=== PATIENT | female | born 1960 | race Caucasian/White ===

== ENCOUNTER 2022-10-26 09:07 | Outpatient (OUT) | payer OTHER, SELFPAY ==
[2022-10-26 09:46] LABS: Basophils Percent Auto 0.6 % (0.2-2.0); Eosinophils Absolute Auto 0.1 10^3/uL (0.0-0.7); Eosinophils Percent Auto 3.4 % (0.9-7.0); Hematocrit 40.3 % (36.0-48.0); Hemoglobin 13.6 g/dL (12.0-16.0); Immature Granulocytes Abs Auto 0.01 10^3/uL (0.00-0.03); Immature Granulocytes Pct Auto 0.3 % (0.0-0.5); Lymphocytes Absolute Auto 0.9 10^3/uL (1.2-3.8); Lymphocytes Percent Auto 26.4 % (20.5-60.0); Mean Corpuscular HGB Conc 33.7 g/dL (29.9-35.2); Mean Corpuscular Hemoglobin 28.7 pg (26.7-34.0); Mean Platelet Volume 9.8 fL (9.5-13.5); Monocytes Absolute Auto 0.4 10^3/uL (0.3-0.8); Monocytes Percent Auto 12.1 % (1.7-12.0); Neutrophils Percent Auto 57.2 % (43.0-75.0); Platelet Count 183 10^3/uL (150-450); Red Blood Count 4.74 10^6/uL (4.20-5.40); Red Cell Distribution Width 12.2 % (11.0-15.0); White Blood Count 3.5 10^3/uL (4.0-11.0)
[2022-10-26 10:43] LABS: Alanine Aminotransferase 30 U/L (14-59); Albumin Globulin Ratio 1.3; Albumin Level 4.1 g/dL (3.4-5.0); Alkaline Phosphatase 81 U/L (46-116); Anion Gap 13.1; Aspartate Amino Transferase 18 U/L (15-37); BUN Creatinine Ratio 22.8; Bilirubin Total 0.7 mg/dL (0.2-1.0); Carbon Dioxide 26.9 mmol/L (21.0-32.0); Chloride 106 mmol/L (98-107); Chol HDL Ratio 2.4; Cholesterol 163 mg/dL (<=200); Estimated GFR (African America >60 (>=60); Estimated GFR (Non-African Ame >60 (>=60); Globulin 3.1 g/dL; Glucose 134 mg/dL (74-106); HDL Cholesterol 69 mg/dL (40-60); Sodium 142 mmol/L (136-145); Total Protein 7.2 g/dL (6.4-8.2); Triglycerides 84 mg/dL (<=150); VLDL CHOLESTEROL 16.8 mg/dL
== END 2022-10-26 09:08 | disposition home or self-care (01) ==
PROVIDERS: PCP Internal Medicine; Visit Provider Internal Medicine
DX: Z00.00 Encounter for general adult medical examination without abnormal findings (principal)
CPT/HCPCS: 36415; 80053; 80061; 85025

== ENCOUNTER 2023-11-09 09:26 | Outpatient (OUT) | payer OTHER, SELFPAY ==
[2023-11-09 09:39] LABS: Basophils Percent Auto 0.6 % (0.2-2.0); Eosinophils Absolute Auto 0.1 10^3/uL (0.0-0.7); Eosinophils Percent Auto 3.4 % (0.9-7.0); Hematocrit 39.9 % (36.0-48.0); Hemoglobin 13.6 g/dL (12.0-16.0); Immature Granulocytes Abs Auto 0.01 10^3/uL (0.00-0.03); Immature Granulocytes Pct Auto 0.3 % (0.0-0.5); Lymphocytes Percent Auto 27.4 % (20.5-60.0); Mean Corpuscular HGB Conc 34.1 g/dL (29.9-35.2); Mean Corpuscular Hemoglobin 29.1 pg (26.7-34.0); Mean Corpuscular Volume 85.3 fL (81.0-99.0); Mean Platelet Volume 9.8 fL (9.5-13.5); Monocytes Absolute Auto 0.4 10^3/uL (0.3-0.8); Monocytes Percent Auto 11.2 % (1.7-12.0); Neutrophils Absolute Auto 2.1 10^3/uL (1.4-6.5); Neutrophils Percent Auto 57.1 % (43.0-75.0); Platelet Count 171 10^3/uL (150-450); Red Blood Count 4.68 10^6/uL (4.20-5.40); Red Cell Distribution Width 11.9 % (11.0-15.0); White Blood Count 3.6 10^3/uL (4.0-11.0)
[2023-11-09 09:56] LABS: Estimated Average Glucose 120 mg/dL; Glycohemoglobin A1C 5.8 % (4.5-6.2)
[2023-11-09 10:04] LABS: Alanine Aminotransferase 29 U/L (14-59); Albumin Globulin Ratio 1.3; Albumin Level 4.1 g/dL (3.4-5.0); Alkaline Phosphatase 98 U/L (46-116); Anion Gap 12.7; Aspartate Amino Transferase 24 U/L (15-37); BUN Creatinine Ratio 19.3; Bilirubin Total 0.7 mg/dL (0.2-1.0); Calcium 8.9 mg/dL (8.5-10.1); Chloride 105 mmol/L (98-107); Chol HDL Ratio 2.5; Cholesterol 160 mg/dL (<=200); Estimated GFR (African America >60 (>=60); Estimated GFR (Non-African Ame >60 (>=60); Globulin 3.1 g/dL; Glucose 124 mg/dL (74-106); HDL Cholesterol 65 mg/dL (40-60); Potassium 3.7 mmol/L (3.5-5.1); Sodium 142 mmol/L (136-145); Total Protein 7.2 g/dL (6.4-8.2); Triglycerides 50 mg/dL (<=150)
== END 2023-11-09 09:27 | disposition home or self-care (01) ==
LOC: LAB 09:26
PROVIDERS: PCP Internal Medicine; Visit Provider Internal Medicine
DX: Z00.00 Encounter for general adult medical examination without abnormal findings (principal)
CPT/HCPCS: 36415; 80053; 80061; 82043; 83036; 85025

== ENCOUNTER 2024-03-27 10:17 | Outpatient (OUT) | payer OTHER, SELFPAY ==
--- OUTSIDE RECORDS SUMMARY | 2024-03-27 10:26 | XMS_ITS | CCD ---
Author Organization [facility] Care Team Providers Care Toppiece Chopper Name Role Phone Tato Bagley Primary Care Provider CORRIE INGRAM Referring Unavailable TATO BAGLEY Primary Care Unavailable CORRIE INGRAM Referring Unavailable TATO BAGLEY Primary Care Unavailable CORRIE INGRAM Referring Unavailable TATO BAGLEY Primary Care Unavailable TATO BAGLEY Primary Care Unavailable INA LR Attending Unavailable CORRIE INGRAM Referring Unavailable TATO BAGLEY Primary Care Unavailable CORRIE INGRAM Referring Unavailable TATO BAGLEY Primary Care Unavailable CORRIE INGRAM Referring Unavailable TATO BAGLEY Primary Care Unavailable CORRIE INGRAM Referring Unavailable TATO BAGLEY Primary Care Unavailable CORRIE INGRAM Referring Unavailable TATO BAGLEY Primary Care Unavailable Tato Bagley DO Primary Care Provider TATO BAGLEY Primary Care Physician Stacia Petersen Unavailable Unavailable Tato Bagley DO Primary Care Provider REQUEST, NONE LISTED Admitting Unavaila ble REQUEST, DR MATA LISTED Consulting Unavaila ble REQUEST, NONE LISTED Attending Unavaila ble TAYA, DR SALINAS Primary Care Unavailable TAYA, DR SALINAS Consulting Unavailable TAYA, DR SALINAS Attending Unavailable TAYA, DR SALINAS Admitting Unavailable TAYA, DR SALINAS Primary Care Unavailable Tato Bagley DO Primary Care Provider TATO BAGLEY Primary Care Unavailable SERGE RAFFY Referring Unavailable SERGE RAFFY Attending Unavailable TATO BAGLEY Primary Care Unavailable ABBYU RAFFY Referring Unavailable TATO BAGLEY Primary Care Unavailable VAISHNAVI STEARNS Attending Unavailable ABBYU, RAFFY Referring Unavailable TATO BAGLEY Primary Care Unavailable KARAMLOU, RAFFY Referring Unavailable Tato Bagley Unavailable DO Tato Bagley Primary Care Provider [phone] MD Amberly Humphrey Attending Provider Amberly Humphrey Attending Unavailable Amberly Humphrey Admitting Unavailable TayaTato Primary Care Unavailable Tato Bagley DO Primary Care Provider Raffy Singleton Attending Unavailable Raffy Singleton Referring Unavailable TATO BAGLEY Consulting Unavailable Raffy Singleton Admitting Unavailable TAYA DO SALINAS Consulting Unavailable Allergies Allergy Classification Reported Allergen(s) Allergy Type Date of Onset Reaction(s) Facility (1 source) No Known Medication Allergies; Translations: [No Known Medication Allergies] Propensity to adverse reactions (disorder) [facility] Repository Medications Current Medications Medication Drug Class(es) Dates Sig (Normalized) Sig (Original) anastrozole 1 mg oral tablet (16 sources) Aromatase Inhibitor Start: 03-27-2019 End: 02-02-2022 take 1 tablet by mouth once daily anastrozole 1 mg Tab 1 mg = 1 tab(s), Oral, Daily, # 90 tab(s), Refills(s) 3, Pharmacy: [facility] 1986 Start Date: 03/27/19 Status: Ordered Comment on above: Take 1 tablet by sherif th once daily. Take 1 tablet by sherif th once daily atorvastatin 40 mg oral tablet (20 sources) HMG-CoA Reductase Inhibitor Start: 12-09-2018 take 1 tablet by mouth once daily atorvastatin 40 mg Tab 40 mg = 1 tab(s), Oral, Daily, Refills(s) 0 Start Date: 12/09/18 Status: Ordered Start: 12-26-2017 End: 11-15-2023 take 40 g by mouth once daily Atorvastatin Discontinue d 40 GM PO Daily December 26, 2017 12:00am November 15, 2023 10:25am Atorvastatin Kobe cium Not-Taking/PRN Comment on above: Take 40 mg by mouth once daily. benazepril hydrochloride 40 mg oral tablet (20 sources) Angiotensin Converting Enzyme Inhibitor Start: 4 End: 4 take 1 tablet by mouth once daily Benazepril Discontinued 0 .ROUTE .COMPLEX 90 September 02, 2023 1:04pm [place] 2nd, 2024 10:25am Take 1 tablet by mouth once daily Start: 12-26-2017 End: 09-02-2023 take 1 tablet by mouth once daily benazepril 40 mg oral tablet 40 mg = 1 tab(s), Oral, Daily, Refills(s) 0 Start Date: 12/09/18 Status: Ordered Comment on above: Take 40 mg by mouth once daily. Calcium (6 sources) Phosphate Binder, Calcium Start: 06-04-2019 Calcium 500+D Refill(s) 0 Start Date: 06/04/19 Status: Ordered calcium carbonate 1500 mg oral tablet (17 sources) Start: 11-15-2023 End: 11-15-2023 take 600 mg by mouth twice daily Calcium Carbonate Active 600 MG PO Twice daily November 15, 2023 10:25am take 1200 mg by mouth once daily calcium carbonate (CALCIUM 300 ORAL) Take 1,200 mg by mouth once daily. 0 Active calcium carbonat e (CALCIUM 300 ORAL) Take by mouth. 0 Active Comment on above: Take by mouth. Take 1,200 mg by sherif th once daily. calcium carbonate 1250 mg / cholecalciferol 125 unt oral tablet (7 sources) Vitamin D Start: 06-04-19 20 take 1 tablet by mouth once daily Calcium Carbonate-Vitamin D (CALCIUM 500 + D) 500-125 MG-UNIT TABS Take 1 tablet by mouth daily 0 06/04/2019 Active cholecalciferol 0.125 mg oral capsule (20 sources) Vitamin D Start: 11-15-19 24 take 125 ug by mouth once daily Cholecalciferol (Vitamin D3) Active 125 MCG PO Daily November 15, 2023 12:00am Cholecalciferol, Vitamin D3, 25 mcg (1,000 unit) cap Take 2,000 Units by mouth as needed. 0 Active Cholecalciferol, Vitamin D3, (VITAMIN D) 25 mcg (1,000 unit) cap Take 1,000 Units by mouth once daily. 0 Active Comment on above: Take 1,000 Units by mouth once daily. Take 2,000 Units by mouth as needed. furosemide 40 mg oral tablet (20 sources) Loop Diuretic Start: 018 take 1 tablet by mouth once daily furosemide 40 mg Tab 40 mg = 1 tab(s), Oral, Daily, Refills(s) 0 Start Date: 12/09/18 Status: Ordered Comment on above: Take 40 mg by mouth once daily. iv contrast (will be provided with radiology test) (2 sources) Start: End: inject 1 dose intravenously once iv contrast (will be provided with radiology test) MRI Brain Inject, intravenously, once for 1 dose.No IV access, insert saline lock prior to beginning of sedation, infusion, injection of imaging exam.Discontinue saline lock post exam. If Pt. has a central line or IVAD, may access for administration according to line specific nursing protocol.Once exam is complete flush line and de-access according to line specific nursing protocol in the MR contrast administration guidelines link 1 Each 0 07/12/2021 07/13/2021 Active Comment on above: MRI Brain Inject, in travenously, once for 1 dose.No IV access, insert saline lock prior to beginning of sedation, infusion, injection of imaging exam.Discontinue saline lock post exam. If Pt. has a central line or IVAD, may access for administration according to line specific nursing protocol.Once exam is complete flush line and de-access according to line specific nursing protocol in the MR contrast administration guidelines link pravastatin sodium 40 mg oral tablet (3 sources) HMG-CoA Reductase Inhibitor Start: take 40 mg by mouth once daily Pravastatin Active 40 MG PO Daily November 15, 2023 12:00am sertraline 50 mg oral tablet (15 sources) Serotonin Reuptake Inhibitor Start: 023 End: take 1 tablet by mouth once daily sertraline (ZOLOFT) 50 mg tablet Take 1 tablet by mouth once daily. 30 tablet 0 12/03/2022 Active Start: 01-08-2022 End: 02-07-2022 take 1 tablet by mouth once daily sertraline (ZOLOFT) 50 mg tablet Take 1 tablet by mouth once daily. 30 tablet 4 01/08/2022 02/07/2022 Active Start: 08-04-2021 End: 09-03-2021 take 1 tablet by mouth once daily sertraline (ZOLOFT) 50 mg tablet Take 1 tablet by mouth once daily. 30 tablet 4 08/04/2021 Active Start: 07-12-2021 End: 08-11-2021 take 1 tablet by mouth once daily sertraline (ZOLOFT) 25 mg tablet Take 1 tablet by mouth once daily. 30 tablet 1 07/12/2021 08/04/2021 Discontinued Comment on above: Take 1 tablet by sherif th once daily. Take 1 tablet by sherif th once daily Completed/Discontinued Medications Medication Drug Class(es) Dates Sig (Normalized) Sig (Original) Suprep Bowel Prep Kit 17.5-3.13-1.6 GM/180ML (2 sources) Start: 12-20-2017 Suprep Bowel Prep Kit 17.5-3.13-1.6 GM/180ML 1 bottle AT 4 PM AND ONE BOTTLE AT 11 PM DAY PRIOR TO COLONSOCOPY Orally Once a day for 1 dose(s) Dec, Not-Taking/PRN Problems Active Problems Problem Classification Problem Date Documented Da te Episodic/Chronic Anxiety disorders (6 sources) Mixed anxiety and depressive disorder; Translations: [Anxiety disorder, unspecified] Chronic Cancer of breast (2 sources) History of malignant neoplasm of breast; Translations: [Personal history of malignant neoplasm of breast] Episodic Diabetes mellitus with complications (3 sources) Type 2 diabetes mellitus; Translations: [Type 2 diabetes mellitus with hyperglycemia] Chronic Diabetes mellitus without complication (10 sources) Impaired fasting glycemia; Translations: [Impaired fasting glucose] 12-09-2018 Episodic Diseases of white blood cells (2 sources) Leukopenia; Translations: [Decreased white blood cell count, unspecified] 11-15-2023 Chronic Disorders of lipid metabolism (11 sources) Hyperlipidemia; Translations: [Hypercholesterolemia ] 12-09-2018 Chronic Essential hypertension (20 sources) Hypertensive disorder; Translations: [Essential (primary) hypertension] Onset: 12-21-2013 12-21-2013 Chronic Fracture of lower limb (3 sources) Closed fracture patella, comminuted (stellate) ; Translations: [Closed fracture of patella] Episodic Headache; including migraine (1 source) Headache; Translations: [Headaches] Episodic Osteoarthritis (11 sources) Primary arthrosis of first carpometacarpal joints, bilateral; Translations: [Bilateral primary osteoarthritis of first carpometacarpal joints] Chronic Other bone disease and musculoskeletal deformities (2 sources) Osteopenia; Translations: [Other specified disorders of bone density and structure, unspecified site] Episodic Other connective tissue disease (3 sources) Pain in thumb ; Translations: [Pain in right finger(s)] 07-15-2023 Episodic Other connective tissue disease (1 source) Pain in right finger(s); Translations: [Pain in right finger(s)] Onset: 07-16-2023 Episodic Other diseases of veins and lymphatics (3 sources) Peripheral venous insufficiency; Translations: [Venous insufficiency (chronic) (peripheral)] 11-14-2023 Episodic Other diseases of veins and lymphatics (2 sources) Venous insufficiency (chronic) (peripheral); Translations: [Venous (peripheral) insufficiency, unspecified] Episodic Other gastrointestinal disorders (3 sources) Stool DNA-based colorectal cancer screening positive; Translations: [Other fecal abnormalities] 03-27-2023 Episodic Other nutritional; endocrine; and metabolic disorders (6 sources) Obesity 12-09-2018 Chronic Substance-related disorders (2 sources) Tobacco user; Translations: [Nicotine dependence, cigarettes, in remission] Chronic Past or Other Problems Problem Classification Problem Date Documented Date Episodic/Chronic Cancer of breast (14 sources) Malignant neoplasm of female breast; Translations: [Malignant neoplasm of unspecified site of right female breast] Resolved: 12-09-2018 Chronic Nonspecific chest pain (13 sources) Chest pain; Translations: [Chest pain, unspecified] Onset: 12-21-2013 12-21-2013 Episodic Other lower respiratory disease (2 sources) Cough; Translations: [Cough, unspecified] Onset: 11-18-2013 Episodic Other nutritional; endocrine; and metabolic disorders (2 sources) Overweight; Translations: [Overweight] Onset: 11-11-2020 Resolved: 11-02-2021 Episodic Other screening for suspected conditions (not mental disorders or infectious disease) (15 sources) Echocardiogram abnormal; Translations: [Abnormal result of other cardiovascular function study] Onset: 12-21-2013 12-21-2013 Episodic Results Test Name Value Interpretation Reference Range Facility [facility] Mamm Screen w/CAD if perf and 3D B[place] 01-22-2024 MA Mamm Screen w/CAD if perf and 3D Alek Exam Date/Time: 01/20/2024 08:52 EDT Reason for Exam: SCREENING Report IMPRESSION: BIRADS 2 BENIGN FINDINGS, NORMAL INTERVAL FOLLOW-UP.12 MONTH RECALL. CLINICAL HISTORY: SCREENING. COMPARISON: 01/04/2023. COMMENT: Routine views and tomosynthesis views of both breasts were obtained. The breasts are heterogeneously dense, which may obscure small masses. There are postsurgical changes of the posterior superior right breast, with architectural distortion, scarring, and surgical clips. There also are surgical clips at the right axilla. No dominant breast mass nor neoplastic calcifications are noted in either breast. There has been no significant change when compared to the prior exam. The examination was reviewed with Computer Aided Detection. Breast Density: Yes Mammography is very important to your health. The current [employer] and National [employer] Network guidelines recommends annual mammography beginning at age 40. This facility utilizes a reminder system to ensure all patients receive reminder notifications at the appropriate time based on the recommendations of this exam. Board Certified Radiologists. Accredited by the ACR and FDA. Ordering Provider: Raffy Singleton FINAL REPORT Dictated: 01/22/2024 2:48 pm Chilo Bacon M.D. Signed (Electronic Signature): 01/22/2024 2:48 pm Signed by: Chilo Bacon M.D. Transcribed by: BERNADETTE Technologist: [facility] Assessment: BI-RADS Category 2-Benign finding Recommendation: Normal interval follow-up Normal [facility] Basophils Auto (Bld) [#/Vol] on 11-09-2023 Basophils (Bld) [#/Vol] 0.0 10 3/uL 0.0-0.1 [facility] Basophils/100 WBC Auto (Bld) on 11-09-2023 Basophils/100 WBC (Bld) 0.6 % 0.2-2.0 [facility] Cholesterol in LDL Calc [Mas s/Vol]on 11-09-2023 Cholesterol in LDL [Mass/Vol] 85.0 mg/dL [facility] Comment on above: <100 mg/dl [id number] 0-129 mg/dl NEAR OR ABOVE [id number] mg/dl BORDERLINE [id number] mg/dl HIGH>190 mg/dl VERY HIGH Cholesterol in VLDL Calc [Ma ss/Vol]on 11-09-2023 Cholesterol in VLDL [Mass/Vol] 10.0 mg/dL [facility] Eosinophils/100 WBC Auto (Bl d)on 11-09-2023 Eosinophils/100 WBC (Bld) 3.4 % 0.9-7.0 [facility] Erythrocyte distribution wid th Auto (RBC) [Ratio]on 11-09-2023 Erythrocyte distribution width (RBC) [Ratio] 11.9 % 11.0-15.0 [facility] Estimated glomerular filtrat ion rate (GFR) non- Americanon 11-09-2023 GFR/1.73 sq M.predicted among non-blacks MDRD (S/P/Bld) [Vol rate/Area] mL/min/{1.73_m2} >=60 [facility] Globulin Calc (S) [Mass/Vol] on 11-09-2023 Globulin (S) [Mass/Vol] 3.1 g/dL [facility] Glucose mean value [Mass/vol ume] in Blood Estimated from glycated hemoglobinon 11-09-2023 Average glucose Estimated from glycated hemoglobin (Bld) [Mass/Vol] 120 mg/dL [facility] Hematocrit Auto (Bld) [Volum e fraction]on 11-09-2023 Hematocrit (Bld) [Volume fraction] 39.9 % 36.0-48.0 [facility] Hemoglobin [Mass/volume] in Bloodon 11-09-2023 Hemoglobin (Bld) [Mass/Vol] 13.6 g/dL 12.0-16.0 [facility] Laboratory - Chemistry and C hemistry - challengeon 11-09-2023 Albumin [Mass/Vol] 4.1 g/dL 3.4-5.0 [facility] ALP [Catalytic activity/Vol] 98 U/L 46-116 [facility] ALT [Catalytic activity/Vol] 29 U/L 14-59 [facility] AST [Catalytic activity/Vol] 24 U/L 15-37 [facility] Bilirubin [Mass/Vol] 0.7 mg/dL 0.2-1.0 [facility] Calcium [Mass/Vol] 8.9 mg/dL 8.5-10.1 [facility] Chloride [Moles/Vol] 105 mmol/L 98-107 [facility] Cholesterol [Mass/Vol] 160 mg/dL <=200 [facility] Cholesterol in HDL [Mass/Vol] 65 mg/dL High 40-60 [facility] Comment on above: > or =60 mg/dl - LOW CARDIOVASCULAR RISK<40 mg/dl - HIGH CARDIOVASCULAR RISK CO2 [Moles/Vol] 28.0 mmol/L 21.0-32.0 [facility] Creatinine [Mass/Vol] 0.88 mg/dL 0.55-1.02 [facility] GFR/1.73 sq M.predicted MDRD (S/P/Bld) [Vol rate/Area] mL/min/{1.73_m2} >=60 [facility] Glucose [Mass/Vol] 124 mg/dL High 74-106 [facility] Potassium [Moles/Vol] 3.7 mmol/L 3.5-5.1 [facility] Protein [Mass/Vol] 7.2 g/dL 6.4-8.2 [facility] Sodium [Moles/Vol] 142 mmol/L 136-145 [facility] Triglyceride [Mass/Vol] 50 mg/dL <=150 [facility] Urea nitrogen [Mass/Vol] 17.0 mg/dL 7.0-18.0 [facility] Urea nitrogen/Creatinine [Mass ratio] 19.3 mg/mg [facility] Laboratory - Hematology and Cell countson 11-09-2023 HbA1c (Bld) [Mass fraction] 5.8 % 4.5-6.2 [facility] Comment on above: ADA RECOMMENDED LIMI T 4.0 - 6.0ADA THERAPEUTIC TARGET < 7.0ACTION SUGGESTED> 7.0 Immature granulocytes/100 WBC (Bld) 0.3 % 0.0-0.5 [facility] Leukocytes [#/volume] correc diana for nucleated erythrocytes in Blood by Automated counon 11-09-2023 WBC corrected for nucl RBC Auto (Bld) [#/Vol] 3.6 10 3/uL Low 4.0-11.0 [facility] Lymphocytes Auto (Bld) [#/Vo l]on 11-09-2023 Lymphocytes (Bld) [#/Vol] 1.0 10 3/uL Low 1.2-3.8 [facility] Lymphocytes/100 WBC Auto (Bl d)on 11-09-2023 Lymphocytes/100 WBC (Bld) 27.4 % 20.5-60.0 [facility] MCH Auto (RBC) [Entitic mass ]on 11-09-2023 MCH (RBC) [Entitic mass] 29.1 pg 26.7-34.0 [facility] MCHC Auto (RBC) [Mass/Vol]on 11-09-2023 MCHC (RBC) [Mass/Vol] 34.1 g/dL 29.9-35.2 [facility] MCV Auto (RBC) [Entitic vol] on 11-09-2023 MCV (RBC) [Entitic vol] 85.3 fL 81.0-99.0 [facility] Microalbumin [Mass/volume] i n Urineon 11-09-2023 Albumin DL <= 20 mg/L (U) [Mass/Vol] 3.0 mg/dL <=30.0 [facility] Monocytes Auto (Bld) [#/Vol] on 11-09-2023 Monocytes (Bld) [#/Vol] 0.4 10 3/uL 0.3-0.8 [facility] Monocytes/100 WBC Auto (Bld) on 11-09-2023 Monocytes/100 WBC (Bld) 11.2 % 1.7-12.0 [facility] Neutrophils Auto (Bld) [#/Vo l]on 11-09-2023 Neutrophils (Bld) [#/Vol] 2.1 10 3/uL 1.4-6.5 [facility] Neutrophils/100 WBC Auto (Bl d)on 11-09-2023 Neutrophils/100 WBC (Bld) 57.1 % 43.0-75.0 [facility] No Panel Informationon 11-08 Eosinophils # (Auto) 0.1 10 3/uL 0.0-0.7 [facility] Immature Granulocyte # (Auto) 0.01 10 3/uL 0.00-0.03 [facility] Platelet mean volume Auto (B ld) [Entitic vol]on 11-09-2023 Platelet mean volume (Bld) [Entitic vol] 9.8 fL 9.5-13.5 [facility] Platelets Auto (Bld) [#/Vol] on 11-09-2023 Platelets (Bld) [#/Vol] 171 10 3/uL 150-450 [facility] RBC Auto (Bld) [#/Vol]on RBC (Bld) [#/Vol] 4.68 10 6/uL 4.20-5.40 [facility] Serum or plasma albumin/glob ulin mass ratioon 11-09-2023 Albumin/Globulin [Mass ratio] 1.3 {ratio} [facility] Serum or plasma anion gap de terminationon 11-09-2023 Anion gap [Moles/Vol] 12.7 mmol/L Fi [facility] Serum or plasma total choles terol/high density lipoprotein (HDL) cholesterol mass lori 11-09-2023 Cholesterol.total/Cho lesterol in HDL [Mass ratio] 2.5 {ratio} [facility] Comment on above: 3.3 - 4.4 LOW RISK4. 4 - 7.1 AVERAGE RISK7.1 - 11.0 MODERATE RISK>11.0 HIGH RISK XR hand RT min 3V*on 024 XR hand RT min 3V* [facility] [address] [place] [address] XRay Report Signed Patient: lAyssa Valdez MR#: [id number] : 1960 Acct:[id number] Age/Sex: 62 / F ADM Date: 07/16/23 Loc: [facility] [place] Room: Type: [facility] Attending Dr: Amberly Humphrey MD Copies to: Amberly Humphrey MD Ordering Provider: Amberly Humphrey MD Date of Service: 07/16/23 XR/XR hand RT min 3V*: M79.644 - Pain in right finger(s) 4 views right hand plain film COMPARISON: None HISTORY: Right first carpometacarpal pain. Loss of cattle rancher strength ACUTE FINDINGS: None DEGENERATIVE CHANGE: Extensive first carpometacarpal degenerative change. Mild interphalangeal degeneration. SOFT TISSUE FINDINGS: Unremarkable JOINT EFFUSION: None POSTOP CHANGES: None BONY MINERALIZATION: Adequate XR/XR hand RT min 3V* IMPRESSION: Extensive first carpometacarpal degenerative change. Impression dictated by: Jasmeet Harper M.D.07/16/2023 4:19 PM Dictation Location: [place] [address] Transcribed By: LEONARDA 07/16/23 [id number] Dictated By: Jasmeet Harper DO 07/16/23 1618 Signed By: 07/16/23 1619 [facility] Physician Orderon 02-20-2023 Physician Order [id number]# 1.00TIFF [facility] CNPNon 02-04-2023 CNPN Telephone ([facility]) ALYSSA VALDEZ ([id number]) 1960 F Date Time Provider Department 02/04/23 MARLIN YEE During your visit today, we recorded the following information about you: Marlin Yee RN 02/04/2023 2:43 PM Signed Pt wondering if she needs to continue the Zoloft since she is off hormonal therapy. Isaac/CAMACHO: Please advise MARILUZ Hebert Kasra, MD 02/04/2023 2:47 PM Signed She can taper off Marlin Yee RN 02/04/2023 2:51 PM Signed Pharmacy: Is there a recommended taper? Marlin Yee RN 02/05/2023 9:52 AM Signed Per pharmacy: 25 mg daily for 2 weeks is a sufficient taper. 50 mg dose can be cut in half. Corinne Gunn VM left for pt with information. She is encouraged to call with any questions or concerns. Marlin Yee RN Allergies As of Date: 02/04/2023 (No Known Allergies) Date Reviewed: 02/01/2023 Reviewed by: Raffy Singleton MD - Fully Assessed Reason for Visit: Patient Question [8787] Prescriptions as of 02/05/2023 - sertraline (ZOLOFT) 50 mg tablet Take 1 tablet by mouth once daily. - calcium carbonate (CALCIUM 300 ORAL) Take 1,200 mg by mouth once daily. - Cholecalciferol, Vitamin D3, 25 mcg (1,000 unit) cap Take 2,000 Units by mouth as needed. - atorvastatin (LIPITOR) 40 mg tablet Take 40 mg by mouth once daily. - furosemide 40 mg tablet Take 40 mg by mouth once daily. - Benazepril HCl 40 mg tablet Take 40 mg by mouth once daily. Problem List As Of Date 02/04/2023 Noted Resolved Abnormal stress ECG [R94.39] 12/21/2013 Hypertension [I10] 12/21/2013 Chest pain [R07.9] 12/21/2013 Encounter Status:Closed by MARLIN YEE on 02/05/23 Normal [facility] CNOVSPon 02-01-2023 CNOVSP Visit (SP) Office ([facility]) ALYSSA VALDEZ ([id number]) 1960 F Date Time Provider Department 02/01/23 9:45 AM RAFFY SINGLETON During your visit today, we recorded the following information about you: Temperature Pulse Respiration Blood pressure 97.9 degrees 61/minute 16/minute 149/79 Weight 72.2 kg Raffy Singleton MD 02/01/2023 10:04 AM Signed PATIENT NAME: Alyssa Valdez CLINIC NO.: [id number] ATTENDING PHYSICIAN: Raffy Singleton MD DATE OF SERVICE: February 01, 2023 Some of the elements of this note have been copied from my previous progress note dated 02/03/2022. All the information has been reviewed carefully. Dear Dr. Tato Bagley, here is an update on a follow up visit on female Alyssa Valdez at the clinic February 01, 2023 Diagnosis: 1. Right sided breast cancer, invasive lobular carcinoma, grade 2, margins negative, no evidence of lymphovascular space invasion. Tumor is 15 mm in size. ER and RI strongly positive, greater than 95%. Fish negative for HER-2 overexpression. Oncotype DX recurrence score of 5. Treatment History: 1. Right breast lumpectomy and sentinel lymph node biopsy December 24, [address] Ze Griffin 2. Right breast radiation therapy February 09, 2019 to March 06, 2019 by . 3. DEXA scan October 2017 with a T score of -2.1- Declined Bone resorptive agents on Vit D and Calcium Repeat Dex 12/2020 lowest T scrore -2.1 R femoral neck 4. Arimidex started in March 2019- Stopped 06/2021 due to intolerance and elected not to pursue any hormonal therapy. HPI: Alyssa Valdez is a 62 year old year old female here for follow up. Doing very well and denies any new complaints. Denies any fevers and or chills and denies any abdominal pain and or diarrhea. She has some R hand pain due to her repetitive work, PAST MEDICAL HISTORY Diagnosis Date Asthma in adult GERD (gastroesophageal reflux disease) HTN (hypertension) Hypercholesteremia Hyperlipidemia Hypertension Obesity Social History Tobacco Use Smoking status: Former Packs/day: .5 Types: Cigarettes Start date: 04/15/1972 Quit date: 04/15/1979 Years since quittin.8 Passive exposure: Past Smokeless tobacco: Never Vaping Use Vaping Use: Never used Substance Use Topics Alcohol use: No Drug use: No FAMILY HISTORY Problem Relation Age of Onset Diabetes Mother Hypertension Mother Cancer Mother lymphoma Lipids Mother Hypertension Father COPD Father Lipids Father Hypertension Sister 3 sisters Diabetes Sister 1 sister Past medical, social and family history reviewed without any changes. REVIEW OF SYSTEMS GENERAL: No weight loss, malaise or fevers. No night sweats. HEENT: Negative for headaches, No changes in hearing or vision, no nose bleeds or other nasal problems. RESPIRATORY: Negative for cough, wheezing and shortness of breath CARDIOVASCULAR: Negative for chest pain, leg swelling and palpitations GI: Negative for abdominal discomfort, blood in stools or black stools and change in bowel habits : Negative for dysuria, frequency and incontinence MUSCULOSKELETAL: Negative for joint pain or swelling, back pain, and muscle pain. SKIN: Negative for lesions, rash, and itching. HEMATOLOGY/LYMPHOLOGY Negative for prolonged bleeding, bruising easily, and swollen nodes. NEURO: Negative for numbness or tingling of hands/feet. No weakness. PHYSICAL EXAMINATION: BP 149/79 Pulse 61 Temp (Src) 97.9 (Temporal) Resp 16 Wt 159 lb 3.2 oz (72.2kg) SpO2 100% Wt 73.2 kg (161 lb 6.4 oz) BMI 27.29 kg/m2 Last 3 Encounter Wt Readings: Date: Wt: 10/09/2019 73.2 kg (161 lb 6.4 oz) 03/02/2019 73.9 kg (163 lb) 02/23/2019 73 kg (161 lb) General appearance:ECOG PERFORMANCE STATUS: 0- Fully active, able to carry on all pre-disease performance w/o restriction. Patient in NAD. Skin: Skin color, texture, turgor normal. No rashes or lesions. Eyes: Anicteric sclera. Pupils are equally round and reactive to light. Extraocular movements are intact. Lymph Nodes: No cervical, supraclavicular, axillary or inguinal adenopathy. Oropharynx: Lips, mucosa, and tongue normal. Back: No pain to percussion. Negative SLR test Lungs clear to auscultation, No wheezing or rhonchi Heart: RRR without murmur, gallop, or rubs. Abdomen soft, non-tender. No masses, organomegaly Extremities: No deformities. No edema Neuro: Gait and speech normal. Reflexes normal and symmetric. Muscular strength intact. Sensation grossly intact. Rectal: Deferred : Deferred Breast: Bilateral no masses and no axillary nodes. Chronic post lumpectomy changes in the R Breast LABS: Glucose (mg/dL) Date Value 02/02/2022 159 Potassium (mmol/L) Date Value 02/02/2022 3.9 Sodium (mmol/L) Date Value 02/02/2022 142 Chloride (mmol/L) Date Value 02/02/2022 102 CO2 (mmol/ (more content not included)... Normal [facility] Consultation Noteon 02-02-20 Consultation Note [id number] Normal [facility] CNOVSPon 08-03-2022 CNOVSP Visit (SP) Office ([place]) ALYSSA VALDEZ ([id number]) 1960 F Date Time Provider Department 08/03/22 10:00 AM VAISHNAVI STEARNS During your visit today, we recorded the following information about you: Temperature Pulse Blood pressure Weight 97.6 degrees 56/minute 137/78 73 kg Height 1.62 m Vaishnavi Stearns PA-C 08/03/2022 10:16 AM Signed PATIENT NAME: Alyssa Valdez CLINIC NO.: [id number] ATTENDING PHYSICIAN: Raffy Singleton MD DATE OF SERVICE: August 03, 2022 (Elements copied from Dr. Singleton's note dated February 03, 2022, have been reviewed and updated where appropriate, and all reflect current assessment and medical decision making during today's encounter, August 03, 2022) CC: Follow up Diagnosis: 1. Right sided breast cancer, invasive lobular carcinoma, grade 2, margins negative, no evidence of lymphovascular space invasion. Tumor is 15 mm in size. ER and RI strongly positive, greater than 95%. Fish negative for HER-2 overexpression. Oncotype DX recurrence score of 5. Treatment History: 1. Right breast lumpectomy and sentinel lymph node biopsy December 24, [address] Ze Griffin 2. Right breast radiation therapy February 09, 2019 to March 06, 2019 by . 3. DEXA scan October 2017 with a T score of -2.1- Declined Bone resorptive agents on Vit D and Calcium Repeat Dex 12/2020 lowest T scrore -2.1 R femoral neck 4. Arimidex started in March 2019- Stopped 06/2021 due to intolerance and elected not to pursue any hormonal therapy. HPI: Alyssa returns for 6 month follow up. She has been doing well. Remains on 1200 mg calcium and 5000 international unit(s) of vitamin D. Appetite is good. Having some pain in the base of her right thumb. She has had some pulling pain in the radiaiton field as well with certain movements, but this is unchanged. Had a right mamm 07/2022 which is documented below. PAST MEDICAL HISTORY Diagnosis Date Asthma in adult GERD (gastroesophageal reflux disease) HTN (hypertension) Hypercholesteremia Hyperlipidemia Hypertension Obesity Social History Tobacco Use Smoking status: Former Packs/day: 0.50 Types: Cigarettes Start date: 04/15/1971 Quit date: 04/15/1979 Years since quittin.3 Passive exposure: Past Smokeless tobacco: Never Vaping Use Vaping Use: Never used Substance Use Topics Alcohol use: No Drug use: No FAMILY HISTORY Problem Relation Age of Onset Diabetes Mother Hypertension Mother Cancer Mother lymphoma Lipids Mother Hypertension Father COPD Father Lipids Father Hypertension Sister 3 sisters Diabetes Sister 1 sister Past medical, social and family history reviewed without any changes. REVIEW OF SYSTEMS GENERAL: No weight loss, malaise or fevers. No night sweats. HEENT: Negative for headaches, No changes in hearing or vision, no nose bleeds or other nasal problems. RESPIRATORY: Negative for cough, wheezing and shortness of breath CARDIOVASCULAR: Negative for chest pain, leg swelling and palpitations GI: Negative for abdominal discomfort, blood in stools or black stools and change in bowel habits : Negative for dysuria, frequency and incontinence MUSCULOSKELETAL: Negative for joint pain or swelling, back pain, and muscle pain. SKIN: Negative for lesions, rash, and itching. HEMATOLOGY/LYMPHOLOGY Negative for prolonged bleeding, bruising easily, and swollen nodes. NEURO: Negative for numbness or tingling of hands/feet. No weakness. PHYSICAL EXAMINATION: BP 137/78 Pulse 56 Temp (Src) 97.6 (Temporal) Ht 5' 3.78 (1.62m) Wt 161 lb (73.0kg) SpO2 100% BMI 27.83 kg/(m2). ECOG PERFORMANCE STATUS: 0- Fully active, able to carry on all pre-disease performance w/o restriction. General: Alert and oriented, no distress, pleasant and cooperative. Heart: Regular, normal S1 and S2, no murmurs, rubs, or gallops Lungs: Clear to auscultation bilaterally Abdomen: Benign Extremities: Feet/ankles without edema, posterior tibial pulses full and symmetrical Breast: Bilateral breasts without masses or skin changes. Chronic scarring at right lumpectomy site. No cervical, SC or axillary nodes. LABS: PATH: As per history of present illness Imaging: Mammogram 12/2021: Right mammogram 07/25/2022 Assessment and Plan: Alyssa Valdez is a 61 year old year old female here for follow up. History of T1c, and N0, M0 right breast cancer status post right breast lumpectomy and sentinel lymph node biopsy December 2018. The tumor is strongly ER/RI positive, HER-2/avery negative with an Oncotype DX recurrence score of 5. She completed radiation therapy and is was on Arimidex until 06/2021 and she elected to stop secondary to tolerance issues. After a long discussion and discussing alternatives she elected not to pursue any hormonal therapy Dexa scan reviewed and declin (more content not included)... Normal [facility] NATTY - VITAMIN Don 05-11-2022 VIT D 25-OH 43.8 ng/mL Normal [facility] Comment on above: Performed By: #### D ATVITD #### [facility] [address] [place] [address] Dr. Luther Heath VIT D RANGES SEE BELOW Normal [facility] Comment on above: Result Comment: <20 ng/mL Vit D deficient 20 - <30 ng/mL Vit D insufficient 30 - 100 ng/mL Vit D sufficient >100 ng/mL Potential Toxicity Performed By: #### D ATVITD #### [facility] [address] [place] [address] Dr. Luther Heath CBC AUTO DIFFon 10-21-2021 BASO # 0.0 103/ul Normal 0.0-0.1 [facility] Comment on above: Performed By: #### C BC #### [facility] [address] [place] [address] Dr. Luther Heath Basophils/100 WBC (Bld) 0.5 % Normal 0.2-2.0 [facility] Comment on above: Performed By: #### C BC #### [facility] [address] [place] [address] Dr. Luther Heath EO # 0.1 103/ul Normal 0.0-0.7 [facility] Comment on above: Performed By: #### C BC #### [facility] [address] [place] [address] Dr. Luther Heath Eosinophils/100 WBC (Bld) 2.6 % Normal 0.9-7.0 [facility] Comment on above: Performed By: #### C BC #### [facility] [address] [place] [address] Dr. Luther Heath Erythrocyte distribution width (RBC) [Ratio] 12.0 % Normal 11.0-15.0 [facility] Comment on above: Performed By: #### C BC #### [facility] [address] [place] [address] Dr. Luther Heath Hematocrit (Bld) [Volume fraction] 42.1 % Normal 36.0-48.0 [facility] Comment on above: Performed By: #### C BC #### [facility] [address] [place] [address] Dr. Luther Heath Hemoglobin (Bld) [Mass/Vol] 13.9 g/dL Normal 12.0-16.0 [facility] Comment on above: Performed By: #### C BC #### [facility] [address] [place] [address] Dr. Luther Heath IG # 0.01 10e3/ul Normal 0.00-0.03 [facility] Comment on above: Performed By: #### C BC #### [facility] [address] [place] [address] Dr. Luther Heath IG % 0.3 % Normal 0.0-0.5 [facility] Comment on above: Performed By: #### C BC #### [facility] [address] [place] [address] Dr. Luther Heath LYMPH # 1.0 103/ul Critically low 1.2-3.8 [facility] Comment on above: Performed By: #### C BC #### [facility] [address] [place] [address] Dr. Luther Heath Lymphocytes/100 WBC (Bld) 26.4 % Normal 20.5-60.0 [facility] Comment on above: Performed By: #### C BC #### [facility] [address] [place] [address] Dr. Luther Heath MANUAL DIFF REQ NO Normal [facility] Comment on above: Performed By: #### C BC #### [facility] [address] [place] [address] Dr. Luther Heath MCH (RBC) [Entitic mass] 28.2 pg Normal 26.7-34.0 [facility] Comment on above: Performed By: #### C BC #### [facility] [address] [place] [address] Dr. Luther Heath MCHC (RBC) [Mass/Vol] 33.0 g/dL Normal 29.9-35.2 [facility] Comment on above: Performed By: #### C BC #### [facility] [address] [place] [address] Dr. Luther Heath MCV (RBC) [Entitic vol] 85.4 fL Normal 81.0-99.0 [facility] Comment on above: Performed By: #### C BC #### [facility] [address] [place] [address] Dr. Luther Heath MONO # 0.5 103/ul Normal 0.3-0.8 [facility] Comment on above: Performed By: #### C BC #### [facility] [address] [place] [address] Dr. Luther Heath Monocytes/100 WBC (Bld) 12.8 % Critically high 1.7-12.0 [facility] Comment on above: Performed By: #### C BC #### [facility] [address] [place] [address] Dr. Luther Heath NEUT # 2.2 103/ul Normal 1.4-6.5 [facility] Comment on above: Performed By: #### C BC #### [facility] [address] [place] [address] Dr. Luther Heath Neutrophils/100 WBC (Bld) 57.4 % Normal 43.0-75.0 [facility] Comment on above: Performed By: #### C BC #### [facility] [address] [place] [address] Dr. Luther Heath Platelet mean volume (Bld) [Entitic vol] 10.3 fL Normal 9.5-13.5 [facility] Comment on above: Performed By: #### C BC #### [facility] [address] [address] [address] Luther Heath PLT 199 103/ul Normal 150-450 [facility] Comment on above: Performed By: #### C BC #### [facility] [address] [address] [address] Luther Heath RBC 4.93 106/ul Normal 4.20-5.40 [facility] Comment on above: Performed By: #### C BC #### [facility] [address] [address] [address] Luther Heath WBC 3.8 103/ul Critically low 4.0-11.0 [facility] Comment on above: Performed By: #### C BC #### [facility] [address] [place] [address] Dr. Luther Heath GLYCOHEMOGLOBIN A1Con 2021 ADA RECOMMENDATION SEE BELOW Normal [facility] Comment on above: Result Comment: ADA RECOMMENDED LIMIT 4.0 - 6.0 ADA THERAPEUTIC TARGET < 7.0 ACTION SUGGESTED > 7.0 Performed By: #### A 1C #### [facility] [address] [place] [address] Dr. Luther Heath Glucose [Mass/Vol] 120 mg/dL Normal [facility] Comment on above: Performed By: #### A 1C #### [facility] [address] [place] [address] Dr. Luther Heath HbA1c (Bld) [Mass fraction] 5.8 % Normal 4.5-6.2 [facility] Comment on above: Performed By: #### A 1C #### [facility] [address] [place] [address] Dr. Luther Heath LIPID PROFILEon 10-21-2021 CHOL-HDL RATIO NORM SEE BELOW Normal [facility] Comment on above: Result Comment: 3.3 - 4.4 LOW RISK 4.4 - 7.1 AVERAGE RISK 7.1 - 11.0 MODERATE RISK >11.0 HIGH RISK Performed By: #### L IPID, BMP #### [facility] [address] [place] [address] Dr. Luther Heath Cholesterol [Mass/Vol] 159 mg/dL Normal <=200 [facility] Comment on above: Performed By: #### L IPID, BMP #### [facility] [address] [address] [address] Luther Heath Cholesterol in HDL [Mass/Vol] 65 mg/dL Critically high 40-60 [facility] Comment on above: Performed By: #### L IPID, BMP #### [facility] [address] [address] [address] Luther Heath Cholesterol in LDL [Mass/Vol] 83.8 mg/dL Normal [facility] Comment on above: Performed By: #### L IPID, BMP #### [facility] [address] [place] [address] Dr. Luther Heath Cholesterol.total/Cho lesterol in HDL [Mass ratio] 2.4 {ratio} Normal [facility] Comment on above: Performed By: #### L IPID, BMP #### [facility] [address] [address] [address] Luther Heath HDL NORMAL > or = 60 mg/dl - LO W CARDIOVASCULAR RISK <40 mg/dl - HIGH CARDIOVASCULAR RISK Normal [facility] Comment on above: Performed By: #### L IPID, BMP #### [facility] [address] [place] [address] Dr. Luther Heath LDL CALC NORMAL SEE BELOW Normal [facility] Comment on above: Result Comment: <100 mg/dl OPTIMAL 100 - 129 mg/dl NEAR OR ABOVE OPTIMAL 130 - 159 mg/dl BORDERLINE HIGH 160 - 189 mg/dl HIGH >190 mg/dl VERY HIGH Performed By: #### L IPID, BMP #### [facility] [address] [address] [address] Luther Heath Triglyceride [Mass/Vol] 51 mg/dL Normal <=150 [facility] Comment on above: Performed By: #### L IPID, BMP #### [facility] [address] [address] [address] Luther Heath VLDL CALC 10.2 mg/dL Normal [facility] Comment on above: Performed By: #### L IPID, BMP #### [facility] [address] [place] [address] Dr. Luther Heath PROF CHEM 8 (BAS METB)on Anion gap [Moles/Vol] 12.3 mmol/L Normal [facility] Comment on above: Performed By: #### L IPID, BMP #### [facility] [address] [place] [address] Dr. Luther Heath Calcium [Mass/Vol] 9.1 mg/dL Normal 8.5-10.1 [facility] Comment on above: Performed By: #### L IPID, BMP #### [facility] [address] [place] [address] Dr. Luther Heath Chloride [Moles/Vol] 104 mmol/L Normal 98-107 [facility] Comment on above: Performed By: #### L IPID, BMP #### [facility] [address] [place] [address] Dr. Luther Heath CO2 [Moles/Vol] 27.6 mmol/L Normal 21.0-32.0 [facility] Comment on above: Performed By: #### L IPID, BMP #### [facility] [address] [place] [address] Dr. Luther Heath Creatinine [Mass/Vol] 0.92 mg/dL Normal 0.55-1.02 [facility] Comment on above: Performed By: #### L IPID, BMP #### [facility] [address] [place] [address] Dr. Luther Heath EGFR-AF SCOTTISH >60 Normal >=60 [facility] Comment on above: Performed By: #### L IPID, BMP #### [facility] [address] [place] [address] Dr. Luther Heath EGFR-NON AF SCOTTISH >60 Normal >=60 [facility] Comment on above: Performed By: #### L IPID, BMP #### [facility] [address] [place] [address] Dr. Luther Heath Glucose [Mass/Vol] 136 mg/dL Critically high 74-106 [facility] Comment on above: Performed By: #### L IPID, BMP #### [facility] [address] [place] [address] Dr. Luther Heath Potassium [Moles/Vol] 3.9 mmol/L Normal 3.5-5.1 [facility] Comment on above: Performed By: #### L IPID, BMP #### [facility] [address] [place] [address] Dr. Luther Heath Sodium [Moles/Vol] 140 mmol/L Normal 136-145 [facility] Comment on above: Performed By: #### L IPID, BMP #### [facility] [address] [place] [address] Dr. Luther Heath Urea nitrogen [Mass/Vol] 17.0 mg/dL Normal 7.0-18.0 [facility] Comment on above: Performed By: #### L IPID, BMP #### [facility] [address] [place] [address] Dr. Luther Heath Urea nitrogen/Creatinine [Mass ratio] 18.5 mg/mg Normal [facility] Comment on above: Performed By: #### L IPID, BMP #### [facility] [address] [place] [address] Dr. Luther Heath VITAMIN D 25 OHon 10-21-2021 VIT D 25-OH 38.7 ng/mL Normal [facility] Comment on above: Performed By: #### V ITAD #### [facility] [address] [place] [address] Dr. Luther Heath VIT D RANGES SEE BELOW Normal [facility] Comment on above: Result Comment: <20 ng/mL Vit D deficient 20 - <30 ng/mL Vit D insufficient 30 - 100 ng/mL Vit D sufficient >100 ng/mL Potential Toxicity Performed By: #### V ITAD #### [facility] [address] [place] [address] Dr. Luther Heath CHEMISTRYOrdered By: SYSTEM SYSTEM on 07-25-2021 Creatinine [Mass/Vol] 0.7 mg/dL Normal 0.5 - 1.3 mg/dL [facility] Remisol GFR/1.73 sq M.predicted among blacks MDRD (S/P/Bld) [Vol rate/Area] mL/min/1.73 m2 Normal >=59mL/min/1.7 3 m2 [facility] Chem S GFR/1.73 sq M.predicted among non-blacks MDRD (S/P/Bld) [Vol rate/Area] mL/min/1.73 m2 Normal >=59mL/min/1.7 3 m2 [facility] Chem S XR KNEE LEFT (1-2 VIEWS)on 0 08-05-2020 XR KNEE LEFT (1-2 VIEWS) EXAM: XR KNEE LEFT (1-2 VIEWS) HISTORY: S82.042D 59-year-old female followup patella fracture. COMPARISON: Prior studies most recent of 07/08/2020. TECHNIQUE: Two views left knee. FINDINGS: Healing inferior pole patella fracture in anatomic alignment with good new bone continuing to form. No joint effusion. Mild soft tissue swelling remains. IMPRESSION: The patellar fracture continues to heal well in anatomic alignment. Interpreted by: Andre Mayers Jr., MD Signed by: Andre Mayers Jr., MD 08/05/20 Final result Normal [facility] XR KNEE LEFT (1-2 VIEWS)on 0 07-08-2020 XR KNEE LEFT (1-2 VIEWS) EXAM: XR KNEE LEFT (1-2 VIEWS) HISTORY: S82.045A 59-year-old female fall and patella fracture. COMPARISON: Left knee 06/10/2020 TECHNIQUE: 2 views left knee FINDINGS: Inferior pole patella fracture remains visible in anatomic alignment with some early healing. No other change. IMPRESSION: Early healing in the patella fracture inferior pole left knee in anatomic alignment. Interpreted by: Andre Mayers Jr., MD Signed by: Andre Mayers Jr., MD 07/08/20 Final result Normal [facility] XR KNEE LEFT (1-2 VIEWS)on 0 06-10-2020 XR KNEE LEFT (1-2 VIEWS) EXAM: XR KNEE LEFT (1-2 VIEWS) HISTORY: S82.042A Followup patella fracture. COMPARISON: Left knee 06/03/2020. TECHNIQUE: 2 views left knee. FINDINGS: Similar alignment of the minimally displaced transversely oriented fracture through the inferior patella with distraction by less than 2 mm. No new fracture is identified. Small amount of new bone continues to form. No joint effusion. IMPRESSION: No significant interval change in the minimally displaced transverse oriented fracture of the inferior patella. Continued slow healing. Interpreted by: Andre Mayers Jr., MD Signed by: Andre Mayers Jr., MD 06/10/20 Final result Normal [facility] No significant interval change in the minimally displaced transverse oriented fracture of the inferior patella. Continued slow healing. [employer] Phone: EXAM: XR KNEE LEFT (1-2 VIEWS) HISTORY: S82.042A Followup patella fracture. COMPARISON: Left knee 06/03/2020. TECHNIQUE: 2 views left knee. FINDINGS: Similar alignment of the minimally displaced transversely oriented fracture through the inferior patella with distraction by less than 2 mm. No new fracture is identified. Small amount of new bone continues to form. No joint effusion. [employer] Phone: John, [employer] Incoming Radiant Results From [employer] - 06/10/2020 7:50 PM EST EXAM: XR KNEE LEFT (1-2 VIEWS) HISTORY: S82.042A Followup patella fracture. COMPARISON: Left knee 06/03/2020. TECHNIQUE: 2 views left knee. FINDINGS: Similar alignment of the minimally displaced transversely oriented fracture through the inferior patella with distraction by less than 2 mm. No new fracture is identified. Small amount of new bone continues to form. No joint effusion. IMPRESSION: No significant interval change in the minimally displaced transverse oriented fracture of the inferior patella. Continued slow healing. [employer] Phone: XR KNEE LEFT (1-2 VIEWS)on 0 06-04-2020 XR KNEE LEFT (1-2 VIEWS) EXAM: XR KNEE LEFT (1-2 VIEWS) REASON FOR EXAM: S82.092A TECHNIQUE: Frontal and lateral nonweightbearing views of the left knee. COMPARISON: Left knee radiographs dated 05/22/2020. FINDINGS: Similar alignment of the minimally displaced transversely oriented fracture through the inferior patella with distraction by less than 2 mm. No new fracture is identified. No aggressive osseous lesions or bony demineralization. No joint effusion. IMPRESSION: No significant interval change in the minimally displaced transverse oriented fracture of the inferior patella. Interpreted by: Joe Quinn DO Signed by: Joe Quinn DO 06/04/20 Final result Normal [facility] No significant interval change in the minimally displaced transverse oriented fracture of the inferior patella. [employer] Phone: EXAM: XR KNEE LEFT (1-2 VIEWS) REASON FOR EXAM: S82.092A TECHNIQUE: Frontal and lateral nonweightbearing views of the left knee. COMPARISON: Left knee radiographs dated 05/22/2020. FINDINGS: Similar alignment of the minimally displaced transversely oriented fracture through the inferior patella with distraction by less than 2 mm. No new fracture is identified. No aggressive osseous lesions or bony demineralization. No joint effusion. [employer] Phone: John, pn Incoming Radiant Results From [employer] - 06/04/2020 11:28 AM EST EXAM: XR KNEE LEFT (1-2 VIEWS) REASON FOR EXAM: S82.092A TECHNIQUE: Frontal and lateral nonweightbearing views of the left knee. COMPARISON: Left knee radiographs dated 05/22/2020. FINDINGS: Similar alignment of the minimally displaced transversely oriented fracture through the inferior patella with distraction by less than 2 mm. No new fracture is identified. No aggressive osseous lesions or bony demineralization. No joint effusion. IMPRESSION: No significant interval change in the minimally displaced transverse oriented fracture of the inferior patella. [employer] Phone: XR KNEE LEFT (MIN 4 VIEWS)on 05-22-2020 XR KNEE LEFT (MIN 4 VIEWS) IMAGES REVIEWED: XR KNEE LEFT (MIN 4 VIEWS) COMPARISON: None available. CLINICAL INDICATION: Fall, pain. IMPRESSION: FINDINGS/IMPRESSION: Acute comminuted minimally displaced fracture involving the inferior patella best seen on the lateral view. Prominent adjacent soft tissue swelling in the anterior knee. Bones appear osteopenic. No dislocation. Interpreted by: Jn Allen MD Signed by: Jn Allen MD 05/22/20 Final result Normal [facility] FINDINGS/IMPRESSION: Acute comminuted minimally displaced fracture involving the inferior patella best seen on the lateral view. Prominent adjacent soft tissue swelling in the anterior knee. Bones appear osteopenic. No dislocation. [facility] [place] IMAGES REVIEWED: XR KNEE LEFT (MIN 4 VIEWS) COMPARISON: None available. CLINICAL INDICATION: Fall, pain. [facility] John, Mhpn Incoming Radiant Results From [employer] - 05/22/2020 5:00 PM EST IMAGES REVIEWED: XR KNEE LEFT (MIN 4 VIEWS) COMPARISON: None available. CLINICAL INDICATION: Fall, pain. IMPRESSION: FINDINGS/IMPRESSION: Acute comminuted minimally displaced fracture involving the inferior patella best seen on the lateral view. Prominent adjacent soft tissue swelling in the anterior knee. Bones appear osteopenic. No dislocation. [facility] Vital Signs Date Time Vital Sign Value Performing Clinician Facility 11-15-2023 10:16-0400 Body height 162.56 cm [facility] 11-15-2023 10:16-0400 Body mass index (BMI) [Ratio] 28.2 kg/m2 [facility] 11-15-2023 10:16-0400 Body weight 74.55 kg [facility] 11-15-2023 10:16-0400 Diastolic blood pressure 84 mm[Hg] [facility] 11-15-2023 10:16-0400 Heart rate 75 /min [facility] 11-15-2023 10:16-0400 Respiratory rate 12 /min [facility] 11-15-2023 10:16-0400 Systolic blood pressure 123 mm[Hg] [facility] 05-17-2023 10:30-0500 Body height 162.56 cm Tato Ball Other [facility] 05-17-2023 10:30-0500 Body mass index (BMI) [Ratio] 27.91 kg/m2 Tato Ball Other [facility] [employer] Other 05-17-2023 10:30-0500 Body weight 73.76 kg Tato Ball Other [employer] [facility] [employer] Other 05-17-2023 10:30-0500 Body weight 73.75 kg DO Tato Ball Work Phone: [facility] 05-17-2023 10:30-0500 Diastolic blood pressure 83 mm[Hg] Tato Ball Other [facility] 05-17-2023 10:30-0500 Respiratory rate 12 /min Tato Ball Other [facility] [employer] Other 05-17-2023 10:30-0500 Systolic blood pressure 138 mm[Hg] Tato Ball Other [facility] 02-01-2023 09:39-0400 Body temperature 97.9 [degF] Raffy Singleton MD Work Phone: [facility] 02-01-2023 09:39-0400 Body weight 72.21 kg Raffy Singleton MD Work Phone: [facility] 02-01-2023 09:39-0400 Diastolic blood pressure 79 mm[Hg] Raffy Singleton MD Work Phone: [facility] 02-01-2023 09:39-0400 Heart rate 61 /min Raffy Singleton MD Work Phone: [facility] 02-01-2023 09:39-0400 Respiratory rate 16 /min Raffy Singleton MD Work Phone: [facility] 02-01-2023 09:39-0400 SaO2% (BldA) [Mass fraction] 100 % Raffy Singleton MD Work Phone: [facility] 02-01-2023 09:39-0400 Systolic blood pressure 149 mm[Hg] Raffy Singleton MD Work Phone: [facility] 08-03-2022 09:17-0400 Body height 162 cm Vaishnavi Stearns PA-C Work Phone: [facility] 08-03-2022 09:17-0400 Body temperature 97.59 [degF] Vaishnavi Smileyer PA-C Work Phone: [facility] 08-03-2022 09:17-0400 Body weight 73.03 kg Vaishnavi Stearns PA-C Work Phone: [facility] 08-03-2022 09:17-0400 Diastolic blood pressure 78 mm[Hg] Vaishnavi Jinny PA-C Work Phone: [facility] 08-03-2022 09:17-0400 Heart rate 56 /min Vaishnavi Jinny PA-C Work Phone: [facility] 08-03-2022 09:17-0400 SaO2% (BldA) [Mass fraction] 100 % Vaishnavi Jinny PA-C Work Phone: [facility] 08-03-2022 09:17-0400 Systolic blood pressure 137 mm[Hg] Vaishnavi Jinny PA-C Work Phone: [facility] 02-02-2022 09:27-0400 Body height 162 cm Raffy Singleton MD Work Phone: [facility] 02-02-2022 09:27-0400 Body temperature 98.91 [degF] Raffy Singleton MD Work Phone: [facility] 02-02-2022 09:27-0400 Body weight 73.48 kg Raffy Singleton MD Work Phone: [facility] 02-02-2022 09:27-0400 Diastolic blood pressure 77 mm[Hg] Raffy Singleton MD Work Phone: [facility] 02-02-2022 09:27-0400 Heart rate 60 /min Raffy Singleton MD Work Phone: [facility] 02-02-2022 09:27-0400 Respiratory rate 16 /min Raffy Singleton MD Work Phone: [facility] 02-02-2022 09:27-0400 SaO2% (BldA) [Mass fraction] 99 % Raffy Singleton MD Work Phone: [facility] 02-02-2022 09:27-0400 Systolic blood pressure 147 mm[Hg] Raffy Singleton MD Work Phone: [facility] 08-04-2021 15:08-0400 Body height 162 cm Raffy Singleton MD Work Phone: [facility] 08-04-2021 15:08-0400 Body temperature 98.01 [degF] Raffy Singleton MD Work Phone: [facility] 08-04-2021 15:08-0400 Body weight 75.84 kg Raffy Singleton MD Work Phone: [facility] 08-04-2021 15:08-0400 Diastolic blood pressure 76 mm[Hg] Raffy Singleton MD Work Phone: [facility] 08-04-2021 15:08-0400 Heart rate 79 /min Raffy Singleton MD Work Phone: [facility] 08-04-2021 15:08-0400 Respiratory rate 16 /min Raffy Singleton MD Work Phone: [facility] 08-04-2021 15:08-0400 SaO2% (BldA) [Mass fraction] 98 % Raffy Singleton MD Work Phone: [facility] 08-04-2021 15:08-0400 Systolic blood pressure 137 mm[Hg] Raffy Singleton MD Work Phone: [facility] 07-12-2021 10:44-0400 Body height 162 cm Vaishnavi Jinny PA-C Work Phone: [facility] 07-12-2021 10:44-0400 Body temperature 97.59 [degF] Vaishnavi Jinny PA-C Work Phone: [facility] 07-12-2021 10:44-0400 Body weight 76.2 kg Vaishnavi Jinny PA-C Work Phone: [facility] 07-12-2021 10:44-0400 Diastolic blood pressure 68 mm[Hg] Vaishnavi Jinny PA-C Work Phone: [facility] 07-12-2021 10:44-0400 Heart rate 61 /min Vaishnavi Jinny PA-C Work Phone: [facility] 07-12-2021 10:44-0400 Respiratory rate 16 /min Vaishnavi Jinny PA-C Work Phone: [facility] 07-12-2021 10:44-0400 SaO2% (BldA) [Mass fraction] 99 % Vaishnavi Jinny PA-C Work Phone: [facility] 07-12-2021 10:44-0400 Systolic blood pressure 150 mm[Hg] Vaishnavi Jinny PA-C Work Phone: [facility] 05-22-2020 15:59-0500 Body Temperature 98.4 [degF] [facility] [place] [place] 05-22-2020 15:59-0500 BP Diastolic 62 mm[Hg] [facility] [place] 05-22-2020 15:59-0500 BP Systolic 157 mm[Hg] [facility] [place] 05-22-2020 15:59-0500 Pulse (Heart Rate) 83 /min [facility] [place] 05-22-2020 15:59-0500 Pulse Oximetry 100 % [facility] [place] 05-22-2020 15:59-0500 Respiratory Rate 18 /min [facility] [place] Encounters Encounter Date Encounter Type Care Provider Facility Start: 01-20-2024 End: 01-20-2024 [facility] Start: 01-20-2024 End: 01-20-2024 Patient encounter procedure Raffy Nishdarien [facility] Start: 11-15-2023 Telephone encounter Tato PULIDO [facility] Start: 11-15-2023 End: 11-15-[address] [facility] Work Phone: Start: 11-15-2023 End: 11-15-2023 Encounter for general adult medical examination without abnormal findings [facility] Start: 11-15-2023 End: 11-15-2023 Patient encounter procedure [facility] Work Phone: Start: 11-09-2023 Non-patient / Non-visit [facility] [employer] Work Phone: Start: 11-08-2023 Telephone encounter Marlin Cuenca Hematology/Oncology Comment on above: Pt yearly appointmen ts/Dr Bagley to resume mammogram orders Start: 08-27-2023 End: 08-27-2023 Patient encounter procedure [facility] Work Phone: Start: 07-16-2023 End: 07-16-2023 ambulatory Amberly Humphrey Facility:[facility] Start: 07-16-2023 End: 07-16-2023 ambulatory DO Tato Ball Work Phone: [facility] Work Phone: Start: 07-16-2023 End: 07-16-2023 Patient encounter procedure DO Tato Ball Work Phone: [facility] Work Phone: Start: 05-17-2023 End: 05-17-2023 ambulatory Tato Taya Other [facility] [employer] Other Start: 05-17-2023 Office outpatient vi sit 25 minutes Tato Taya [facility] Start: 05-17-2023 End: 05-17-2023 Patient encounter procedure DO Tato Ball Work Phone: [facility]ician [facility]- Start: 02-04-2023 Telephone encounter Marlin Cuenca Hematology/Oncology Comment on above: Patient Question Start: 02-01-2023 End: 02-01-2023 ambulatory TATO Leon BALL Facility:[facility] Start: 02-01-2023 End: 02-01-2023 ambulatory Raffy Singleton MD Work Phone: Hematology/Oncology Comment on above: Encounter for screen ing for malignant neoplasm of breast, unspecified screening modality (Primary Dx); History of breast cancer in female Start: 02-01-2023 End: 02-01-2023 Patient encounter procedure Raffy Singleton MD Work Phone: [facility] Start: 01-04-2023 End: 01-04-2023 Patient encounter procedure Vaishnavi Stearns [facility] Start: 11-19-2022 Refill Raffy Singleton MD Work Phone: Hematology/Oncology Comment on above: Refill Request Start: 08-03-2022 End: 08-03-2022 ambulatory Vaishnavi Stearns PA-C Work Phone: Hematology/Oncology Comment on above: History of breast ca ncer in female (Primary Dx); Osteopenia, unspecified location; Encounter for screening mammogram for malignant neoplasm of breast Start: 08-03-2022 End: 08-03-2022 Patient encounter procedure Vaishnavi Stearns PA-C Work Phone: [facility] Start: 07-31-2022 End: 07-31-2022 Patient encounter procedure Raffy Singleton [facility] Start: 07-25-2022 End: 07-25-2022 Patient encounter procedure Larisa Goddard [facility] Start: 06-30-2022 Refill Raffy Singleton MD Work Phone: Hematology/Oncology Comment on above: Refill Request Start: 05-11-2022 End: 05-12-[address] NONE LISTED REQUEST Facility: Start: 02-05-2022 Telephone encounter Eliane Kapoor RN Work Phone: Hematology/Oncology Comment on above: Results, Lab (Vitami n D results) Start: 02-02-2022 End: 02-02-2022 ambulatory Raffy Singleton MD Work Phone: Hematology/Oncology Comment on above: Malignant neoplasm o f right breast in female, estrogen receptor positive, unspecified site of breast (HCC) (Primary Dx) Start: 02-02-2022 End: 02-02-2022 Patient encounter procedure Raffy Singleton MD Work Phone: [facility] Start: 01-07-2022 Refill Raffy Singleton MD Work Phone: Hematology/Oncology Comment on above: Refill Request Start: 01-03-2022 End: 01-03-2022 Patient encounter procedure Raffy Singleton [facility] Start: 10-25-2021 Encounter for genera l adult medical examination without abnormal findings DR TATO BAGLEY [facility] Start: 10-21-2021 End: 10-22-[address] TATO BAGLEY Facility:[facility] Start: 10-21-2021 End: 10-22-2021 Encounter for general adult medical examination without abnormal findings DR TATO BAGLEY Facility:[facility] Start: 09-13-2021 Refill Raffy Singleton MD Work Phone: Hematology/Oncology Comment on above: Refill Request Start: 08-04-2021 End: 08-04-2021 ambulatory Raffy Singleton MD Work Phone: Hematology/Oncology Comment on above: Malignant neoplasm o f right breast in female, estrogen receptor positive, unspecified site of breast (HCC) (Primary Dx) Start: 08-04-2021 End: 08-04-2021 Patient encounter procedure Raffy Singleton MD Work Phone: [facility] Start: 07-25-2021 End: 07-25-2021 Patient encounter procedure Vaishnavi Stearns [facility] Start: 07-12-2021 End: 07-12-2021 ambulatory Vaishnavi Stearns PA-C Work Phone: Hematology/Oncology Comment on above: Malignant neoplasm o f right breast in female, estrogen receptor positive, unspecified site of breast (HCC) (Primary Dx); Osteopenia, unspecified location; Anxiety and depression; Headaches Start: 07-12-2021 End: 07-12-2021 Patient encounter procedure Vaishnavi Stearns PA-C Work Phone: [facility] Start: 08-05-2020 End: 08-08-2020 ambulatory CORRIE Ar[facility] Start: 08-05-2020 End: 08-08-2020 ambulatory [facility] Start: 08-05-2020 End: 08-07-2020 Subsequent hospital visit by physician Tato Bagley DO Work Phone: [facility] Start: 07-08-2020 End: 07-11-2020 ambulatory [facility]E [facility] Start: 07-08-2020 End: 07-11-2020 ambulatory [facility] Start: 07-08-2020 End: 07-10-2020 Subsequent hospital visit by physician Tato Bagley [facility] Start: 06-10-2020 End: 06-13-2020 ambulatory [facility] Start: 06-10-2020 End: 06-13-2020 ambulatory [facility] Start: 06-10-2020 End: 06-12-2020 Subsequent hospital visit by physician Jacquelin [facility] [address] [place] [address] [facility] Comment on above: Closed displaced com minuted fracture of left patella, initial encounter Start: 06-10-2020 End: 06-12-2020 Subsequent hospital visit by physician Tato Bagley [facility] Start: 06-03-2020 End: 06-06-2020 ambulatory CORRIE Munson [facility] Start: 06-03-2020 End: 06-05-2020 Subsequent hospital visit by physician Jacquelin Additional Xray At [facility] Comment on above: Other closed fractur e of left patella, initial encounter Start: 06-03-2020 End: 06-06-2020 [facility] Start: 06-03-2020 End: 06-05-2020 Subsequent hospital visit by physician Tato Bagley [facility] Start: 05-22-2020 End: 05-22-2020 Emergency department patient visit TATO Leon [facility] Start: 05-22-2020 End: 05-22-2020 Emergency department patient visit Vesluis Richard Work Phone: [facility] ED Comment on above: Closed nondisplaced comminuted fracture of left patella, initial encounter (Primary Dx) Procedures Date Procedure Procedure Detail Performing Clinician Start: 07-16-2023 Plain X-ray of right hand DO Tato Taya Work Phone: Start: 07-11-2021 Adult depression scr eening assessment Vaishnavi LOPEZ-C Work Phone: Start: 06-10-2020 Radiologic examinati on knee 1/2 views Corrie Ingram Work Phone: Start: 06-03-2020 Radiologic examinati on knee 1/2 views Corrie Ingram Work Phone: Start: 05-22-2020 Radiologic exam knee complete 4/more views Veselin Richard Work Phone: Start: 12-15-2017 Colonoscopy Vaishnavijudith Smiley er Start: 03-15-2010 Repair of ankle Vaishnavi M usser Comment on above: LEFT ANKLE Start: 04-15-2000 Total abdominal hysterectomy with bilateral salpingo-oophorectomy Vaishnavi Smileyer Biopsy of breast Vaishnavi Musse r section Vaishnavi Musse r End: 11-02-2021 Depression screening Tato Bagley Other Ganglion cyst of rig ht wrist (disorder) Vaishnavijudith Smileyer Ganglion cyst of rig ht wrist (disorder) Raffy Singleton Plan of Treatment Date Care Activity Detail Author Start: 02-02-2025 DIABETES SCREEN DIABETES SCREEN [facility] Start: 02-02-2025 Diabetes Screening Diabetes Screenin g [facility] Start: 08-04-2024 DIABETES SCREEN DIABETES SCREEN [facility] Start: 02-02-2024 End: 05-03-2024 CBC W Auto Differential panel - Blood CBC + DIFF Lab Routine History of breast cancer in female Expected: 02/02/2024 (Approximate), Expires: 05/03/2024 [facility] Work Phone: Comment on above: Expected: 02/02/2024 (Approximate), Expires: 05/03/2024 Start: 02-02-2024 End: 05-03-2024 Comprehensive metabolic 2000 panel - Serum or Plasma COMP METABOLIC PANEL Lab Routine History of breast cancer in female Expected: 02/02/2024 (Approximate), Expires: 05/03/2024 [facility] Work Phone: Comment on above: Expected: 02/02/2024 (Approximate), Expires: 05/03/2024 Start: 02-02-2024 End: 03-02-2024 AMELIA SCREENING W MIGUEL AMELIA SCREENING W MIGUEL Radiology Routine Encounter for screening for malignant neoplasm of breast, unspecified screening modality Expected: 02/02/2024 (Approximate), Expires: 03/02/2024 [facility] Work Phone: Comment on above: Expected: 02/02/2024 (Approximate), Expires: 03/02/2024 Start: 12-15-2023 Influenza vaccination Influenza Vacc ine (#1) [facility] Start: 07-16-2023 Plain X-ray of right hand XR hand RT min 3V* [facility] Start: 07-16-2023 XR Hand - right GE 3 Views [facility] Start: 12-14-2022 Influenza vaccination INFLUENZA (#1) [facility] Start: 08-03-2022 End: 03-04-2023 Diagnostic mammography computer-aided detcj uni [facility] RT Radiology Routine Malignant neoplasm of right breast in female, estrogen receptor positive, unspecified site of breast (HCC) Expected: 08/03/2022, Expires: 03/04/2023 [facility] Work Phone: Comment on above: Expected: 08/03/2022 , Expires: 03/04/2023 Start: 07-11-2022 Adult depression screening assessment DEPRESSION SCREENING [facility] Start: 04-15-2022 DEPRESSION ASSESSMENT DEPRESSION ASS ESSMENT [facility] Start: 02-03-2022 End: 04-05-2022 CBC W Auto Differential panel - Blood CBC + DIFF Lab Routine Malignant neoplasm of right breast in female, estrogen receptor positive, unspecified site of breast (HCC) Expected: 02/03/2022 (Approximate), Expires: 04/05/2022 [facility] Work Phone: Comment on above: Expected: 02/03/2022 (Approximate), Expires: 04/05/2022 Start: 02-03-2022 End: 04-05-2022 Comprehensive metabolic 2000 panel - Serum or Plasma COMP METABOLIC PANEL Lab Routine Malignant neoplasm of right breast in female, estrogen receptor positive, unspecified site of breast (HCC) Expected: 02/03/2022 (Approximate), Expires: 04/05/2022 [facility] Work Phone: Comment on above: Expected: 02/03/2022 (Approximate), Expires: 04/05/2022 Start: 02-03-2022 End: 04-05-2022 VITAMIN D 25 HYDROXY VITAMIN D 25 HYDROXY Lab Routine Malignant neoplasm of right breast in female, estrogen receptor positive, unspecified site of breast (HCC) Expected: 02/03/2022 (Approximate), Expires: 04/05/2022 [facility] Work Phone: Comment on above: Expected: 02/03/2022 (Approximate), Expires: 04/05/2022 Start: 01-04-2022 End: 09-03-2022 Diagnostic mammography computer-aided detcj bi [facility] BILAT Radiology Routine Malignant neoplasm of right breast in female, estrogen receptor positive, unspecified site of breast (HCC) Expected: 01/04/2022, Expires: 09/03/2022 [facility] Work Phone: Comment on above: Expected: 01/04/2022 , Expires: 09/03/2022 Start: 12-14-2021 Influenza vaccination INFLUENZA (#1) [facility] Start: 11-03-2021 COVID-19 VACCINE (4 - Booster for Donna series) COVID-19 VACCINE (4 - Booster for Donna series) [facility] Start: 04-28-2021 COVID-19 VACCINE (3 - Booster for Donna series) COVID-19 VACCINE (3 - Booster for Donna series) [facility] Start: 04-15-2021 DEPRESSION ASSESSMENT DEPRESSION ASS ESSMENT [facility] Start: 12-14-2020 Influenza vaccination Flu vacc ine (Season Ended) [facility] Work Phone: Start: 12-15-2019 Influenza vaccination Flu vaccine (# 1) [place], [place] Start: 2019 RSV Vaccine (1 - 1-d ose 60+ series) RSV Vaccine (1 - 1-dose 60+ series) [facility] Start: 10-26-2017 Urine microalbumin profile [facility] Start: 11-27-2009 Screening for malign ant neoplasm of breast Breast cancer screen [place], [place] Start: 11-27-2009 Screening for malign ant neoplasm of colon Colon cancer screen colonoscopy [place], [place] Start: 11-27-2009 Shingles Vaccine (1 of 2) Shingles Vaccine (1 of 2) [place], [place] Start: 11-27-2009 SHINGRIX VACCINE (1 of 2) SHINGRIX VACCINE (1 of 2) [facility] Start: 11-27-2004 COLOGUARD (FIT-DNA) COLOGUARD (FIT-D NA) [facility] Start: 11-27-2004 Colonoscopy COLONOSCOPY [facility] Start: 11-27-2004 COLORECTAL CANCER SCREENING COLORECTAL CANCER SCREENING [facility] Start: 11-27-[address] COLONOGRAPHY [facility] Start: 11-27-2004 DIABETES SCREEN DIABETES SCREEN [facility] Start: 11-27-2004 FECAL OCCULT BLOOD FECAL OCCULT BLOO D [facility] Start: 11-27-2004 Lipid 1996 panel - S alisa or Plasma Lipid Screening [facility] Start: 11-27-2004 Lipid panel Lipid Screening [facility] Start: 11-27-2004 LIPID SCREEN LIPID SCREEN [facility] Start: 11-27-2004 Screening for malign ant neoplasm of colon [facility] Start: 11-27-2004 SIGMOIDOSCOPY SIGMOIDOSCOPY [facility] Start: 1999 Mammography [facility] Start: 1999 Screening for malign ant neoplasm of breast Mammogram Screening [facility] Start: 11-27-1989 HPV TESTING HPV TESTING [facility] Start: 11-27-1980 PAP TESTING PAP TESTING [facility] Start: 11-27-1980 Screening for malign ant neoplasm of cervix [facility] Start: 11-27-1978 DTaP/Tdap/Td vaccine (1 - Tdap) DTaP/Tdap/Td vaccine (1 - Tdap) [place], [place] Start: 11-27-1977 ANNUAL PCP TEAM SLOT SUPERVISOR LUIS A DISEASE VISIT ANNUAL PCP TEAM CHRONIC DISEASE VISIT [facility] Start: 11-27-1977 Anxiety Screening Anxiety Screening [facility] Start: 11-27-1977 BP CONTROLLED (<130/80) BP CONTROLLE D (<130/80) [facility] [facility] Start: 11-27-1977 Depression Screening Depression Scre ening [facility] Start: 11-27-1977 HEPATITIS C SCREENING HEPATITIS C [facility] [place] Start: 11-27-1977 Hepatitis C screening Hepatitis C [facility] Start: 11-27-1977 HIV SCREENING HIV SCREENING [facility] Start: 11-27-1977 HIV screening HIV Screening [facility] Start: 1975 COVID-19 Vaccine (1) COVID-19 Vaccin e (1) [facility] Work Phone: Start: 11-27-1974 HIV screening HIV screen [place], [place] Start: 11-27-1969 Lipid panel Lipid screen [place], [place] Start: 11-27-1965 PNEUMOCOCCAL (1 - PCV) PNEUMOCOCCAL (1 - PCV) [facility] Start: 1959 Creatinine measurement Creatinine mo nitoring [place], [place] Start: 1959 Hepatitis C screening Hepatitis C sc [place], [place] Start: 1959 Potassium monitoring Potassium monit [place], [place] End: 09-02-2023 AMELIA SCREENING W MIGUEL AMELIA SCREENING W MIGUEL Radiology Routine History of breast cancer in female Encounter for screening mammogram for malignant neoplasm of breast 1 Occurrences starting 08/03/2022 until 09/02/2023 [facility] Work Phone: Comment on above: 1 Occurrences starti ng 08/03/2022 until 09/02/2023 End: 08-11-2022 Mri brain brain stem w/o w/contrast material MRI BRAIN WO/W IVCON Radiology Routine Malignant neoplasm of right breast in female, estrogen receptor positive, unspecified site of breast (HCC) Osteopenia, unspecified location Anxiety and depression Headaches 1 Occurrences starting 07/12/2021 until 08/11/2022 [facility] Work Phone: Comment on above: 1 Occurrences starti ng 07/12/2021 until 08/11/2022 [facility] Immunizations Immunization Date Immunization Notes Care Provider Alice fraire 01-25-2023 influenza virus vaccine, unspecified formulation Marlin Yee RN [facility] 02-23-2022 zoster vaccine recombinant Vaishnavi Jinny PA-C Work Phone: [facility] 01-26-2022 influenza virus vaccine, split virus (incl. purified surface antigen) Tato Bagley Other [employer] Other 01-26-2022 influenza virus vaccine, unspecified formulation DO Tato Bagley Work Phone: [facility] 01-26-2022 Influenza, injectabl e, Madin Avril Canine Kidney, preservative free, quadrivalent Vaishnavi Jinny PA-C Work Phone: [facility] 11-17-2021 zoster vaccine recombinant Vaishnavi Jinny PA-C Work Phone: [facility] 09-08-2021 COVID-19 original vaccine, age 12+ yr, monovalent ([employer] - [place] TOP) Vaishnavi Jinny PA-C Work Phone: [facility] 03-03-2021 COVID-19 original vaccine, age 12+ yr, monovalent ([employer] - PURPLE TOP) Vaishnavi Stearns PA-C Work Phone: [facility] 12-27-2020 influenza virus vaccine, unspecified formulation aRffy Singleton MD Work Phone: [facility] 08-17-2020 COVID-19 vaccine (DONNA) Vaishnavi Stearns PA-C Work Phone: [facility] 01-29-2019 influenza, seasonal, injectable; Translations: [[email or web address]] Vaishnavi Stearns PA-C Work Phone: [facility] 10-25-2017 tetanus and diphther ia toxoids, adsorbed, preservative free, for adult use (2 Lf of tetanus toxoid and 2 Lf of diphtheria toxoid) Vaishnavi Stearns PA-C Work Phone: [facility] 10-25-2017 tetanus and diphther ia toxoids, adsorbed, preservative free, for adult use (5 Lf of tetanus toxoid and 2 Lf of diphtheria toxoid) DO Tato Bagley Work Phone: [facility] 10-25-2017 tetanus toxoid, reduced diphtheria toxoid, and acellular pertussis vaccine, adsorbed Tato Bagley Other [facility] [email or web address] Other Payers Date Payer Category Payer Private Health Insurance [id number] 2020 Private Health Insurance PATRIA CANDELARIO OA [id number] 2020-Present [phone] [address] [place] [address] Open Access [id number] 2020 Private Health Insurance C[employer] C IGNA OAP [id number] 2020-Present [phone] [address] [place] [address] Open Access [id number] 1959 Unknown [id number] [id number]. 2.174 1959 Unknown [id number] 2.16.840.1.891565.3.579. 2.174 1959 Unknown [id number] 2.16.840.1.556590.3.579. 2.174 1959 Unknown [id number] 2.16.840.1.309445.3.579. 2.174 1959 Unknown [id number] 2.16.840.1.802786.3.579. 2.174 1959 Unknown [id number] 2.16.840.1.948492.3.579. 2.174 1959 Unknown [id number] 2.16.840.1.361965.3.579. 2.174 1959 Unknown [id number] 2.16.840.1.867465.3.579. 2.174 1959 Unknown [id number] 2.16.840.1.842065.3.579. 2.174 1959 Unknown [id number] 2.16.840.1.303229.3.579. 2.593 1959 Unknown [id number] 2.16.840.1.955913.3.579. 2.727 1959 Private Health Insurance [id number] [id number] 1959 Self-pay Private Health Insurance [facility] [id number] Unknown [id number] [id number]. 2.593 Unknown [id number]. 2.531 Social History Date Type Detail Facility Start: 05-22-2020 End: 07-16-2023 Tobacco smoking status NHIS Never smoker [facility] Start: 05-22-2020 Alcohol intake Ex-drinker (finding) [facility] MARY JON Sex Assigned At Not on file [facility] MARY JON Start: 07-02-2021 End: 02-02-2022 Exposure to SARS-CoV-2 (event) [facility] Start: 12-21-2013 End: 01-16-2019 Tobacco smoking status OKIS Ex-smoker [facility] Start: 04-15-1971 End: 04-15-1979 History of tobacco use Current smoker [facility] Start: 04-15-1971 End: 04-15-1979 History of tobacco use Cigarette Smoker [facility] Start: 12-21-2013 End: 02-01-2023 Cigarettes smoked current (pack per day) - Reported 0.5 [facility] Start: 12-21-2013 End: 02-02-2022 Tobacco use and exposure Smokeless tobacco non-user [facility] Start: 07-12-2021 End: 02-01-2023 Alcohol intake Current non-drinker of alcohol (finding) [facility] Start: 1960 Sex Assigned At Female [facility] Start: 08-03-2022 End: 02-01-2023 Sex Assigned At Female [facility] History of tobacco use Passive smoker [facility] Adult Depression Screening Assessment 0 [facility] Start: 07-06-2020 Gender identity Identifies as female gender (finding) [facility] Start: 07-06-2020 Sexual orientation Heterosexual (fin ding) [facility] Clinical Notes 07-12-2021 to 11-08-2023 Telephone Encounter - Raffy Singleton MD - 11/08/2023 10:49 AM EDTTelephone Encounter - Raffy Singleton MD - 11/08/2023 10:49 AM EDT Note Date & Type Note Facility 11-08-2023 Telephone encounter Note Form atting of this note might be different from the original. Thanks [facility] 11-08-2023 Miscellaneous Notes Formattin g of this note might be different from the original. Thanks Pt appointment with Isaac canceled. Pt offered to continue with Isaac in [place], or [place] to [place] provider. She reports I am passed my 5 years, and I don't think I really need to come there any longer. Pt aware she can have Dr Bagley PCP resume her yearly mammogram orders and can return for any oncologic needs, if necessary, in the future. Pt denies any questions, need or concerns at this time. Isaac/PSS: LIZZY Yee RN documented in this encounter [facility] 11-08-2023 Telephone encounter Note Form atting of this note might be different from the original. Pt appointment with Isaac canceled. Pt offered to continue with Isaac in [place], or [place] provider. She reports I am passed my 5 years, and I don't think I really need to come there any longer. Pt aware she can have Dr Bagley PCP resume her yearly mammogram orders and can return for any oncologic needs, if necessary, in the future. Pt denies any questions, need or concerns at this time. Isaac/PSS: LIZZY Yee RN [facility] 05-17-2023 Evaluation note Encounter Date Diagnosis Assessment Notes May, Type 2 diabetes mellitus with hyperglycemia, without long-term current use of insulin (ICD-10 - E11.65) This patient is following a comprehensive diabetic treatment plan. They are checking their feet daily for calluses and nonhealing ulcers. They are being seen for yearly dilated eye examinations. Goals: SBP less than 130, LDL less than 100, FBS less than 140, A1C less than 7%. They are not checking their BS daily. Continue regular routine monitoring of A1C, Microalbumin, Dilated eye exam and Foot exam May, Primary hypertension (ICD-10 - I10) This patient is instructed to consume a healthy, low-fat, low-salt diet. They are also encouraged to continue exercise to achieve/maintain a normal BMI. Patient is instructed on home BP measurements: - rest for 5 minutes w/o talking.- positioned w/ feet on floor and arm supported.- average best 2/3 readings w/ goal < 135/85.- update office w/ home readings in 2 weeks. May, Elevated cholesterol (ICD-10 - E78.00) Instructed on diet and exercise with continued statin therapy.Discussed the beneficial effects of lowering cholesterol in reducing the risk for cerebrovascular and cardiovascular disease. May, Primary osteoarthritis of both first carpometacarpal joints (ICD-10 - M18.0) Instructed on warm soaks, ice, Voltaren Gel and occasional Naproxen. She has been referred to Orthopedics for evaluation and treatment May, Venous insufficiency (chronic) (peripheral) (ICD-10 - I87.2) Avoid salt and elevate lower extremities, support stockings, inspect legs and feet daily for blisters and ulcerations. May, Malignant neoplasm of upper-outer quadrant of right female breast (ICD-10 - C50.411) Instructed patient on monthly SBE and yearly mammograms. Stopped hormone therapy due to intolerance May, Generalized anxiety disorder (ICD-10 - F41.1) Symptoms tolerable. Occasional panic attack, which may last 1-2 hours and resolves w/o medication [employer] Other 10-24-2023 Miscellaneous Notes* Telephone Encounter - Marlin Yee RN - 02/05/2023 9:49 AM EDT Per pharmacy: 25 mg daily for 2 weeks is a sufficient taper. 50 mg dose can be cut in half. Corinne SOLER left for pt with information. She is encouraged to call with any questions or concerns. Marlin Yee RN * Telephone Encounter - Marlin Yee RN - 02/04/2023 2:50 PM EDT Pharmacy: Is there a recommended taper? * Telephone Encounter - Raffy Singleton MD - 02/04/2023 2:47 PM EDT She can taper off * Telephone Encounter - Marlin Yee RN - 02/04/2023 2:38 PM EDT Pt wondering if she needs to continue the Zoloft since she is off hormonal therapy. Isaac/MM: Please advise Marlin Yee RN [facility] NoteHNO ID: [id number] Author: Raffy Singleton MD Service: ? Author Type: Physician Type: Progress Notes Filed: 02/01/2023 10:04 AM Note Text: PATIENT NAME: Alyssa Valdez CLINIC NO.: [id number] ATTENDING PHYSICIAN: Raffy Singleton MD DATE OF SERVICE: February 01, 2023 Some of the elements of this note have been copied from my previous progress note dated 02/03/2022. All the information has been reviewed carefully. Dear Dr. Tato Bagley, here is an update on a follow up visit on female Alyssa Valdez at the clinic February 01, 2023 Diagnosis: 1. Right sided breast cancer, invasive lobular carcinoma, grade 2, margins negative, no evidence of lymphovascular space invasion. Tumor is 15 mm in size. ER and RI strongly positive, greater than 95%. Fish negative for HER-2 overexpression. Oncotype DX recurrence score of 5. Treatment History: 1. Right breast lumpectomy and sentinel lymph node biopsy December 24, [address] Ze Griffin 2. Right breast radiation therapy February 09, 2019 to March 06, 2019 by . 3. DEXA scan October 2017 with a T score of -2.1- Declined Bone resorptive agents on Vit D and Calcium Repeat Dex 12/2020 lowest T scrore -2.1 R femoral neck 4. Arimidex started in March 2019- Stopped 06/2021 due to intolerance and elected not to pursue any hormonal therapy. HPI: Alyssa Valdez is a 62 year old year old female here for follow up. Doing very well and denies any new complaints. Denies any fevers and or chills and denies any abdominal pain and or diarrhea. She has some R hand pain due to her repetitive work, PAST MEDICAL HISTORY Diagnosis Date Asthma in adult GERD (gastroesophageal reflux disease) HTN (hypertension) Hypercholesteremia Hyperlipidemia Hypertension Obesity Social History Tobacco Use Smoking status: Former Packs/day: .5 Types: Cigarettes Start date: 04/15/1971 Quit date: 04/15/1979 Years since quittin.8 Passive exposure: Past Smokeless tobacco: Never Vaping Use Vaping Use: Never used Substance Use Topics Alcohol use: No Drug use: No FAMILY HISTORY Problem Relation Age of Onset Diabetes Mother Hypertension Mother Cancer Mother lymphoma Lipids Mother Hypertension Father COPD Father Lipids Father Hypertension Sister 3 sisters Diabetes Sister 1 sister Past medical, social and family history reviewed without any changes. REVIEW OF SYSTEMS GENERAL: No weight loss, malaise or fevers. No night sweats. HEENT: Negative for headaches, No changes in hearing or vision, no nose bleeds or other nasal problems. RESPIRATORY: Negative for cough, wheezing and shortness of breath CARDIOVASCULAR: Negative for chest pain, leg swelling and palpitations GI: Negative for abdominal discomfort, blood in stools or black stools and change in bowel habits : Negative for dysuria, frequency and incontinence MUSCULOSKELETAL: Negative for joint pain or swelling, back pain, and muscle pain. SKIN: Negative for lesions, rash, and itching. HEMATOLOGY/LYMPHOLOGY Negative for prolonged bleeding, bruising easily, and swollen nodes. NEURO: Negative for numbness or tingling of hands/feet. No weakness. PHYSICAL EXAMINATION: BP 149/79 Pulse 61 Temp (Src) 97.9 (Temporal) Resp 16 Wt 159 lb 3.2 oz (72.2kg) SpO2 100% Wt 73.2 kg (161 lb 6.4 oz) BMI 27.29 kg/m2 Last 3 Encounter Wt Readings: Date: Wt: 10/09/2019 73.2 kg (161 lb 6.4 oz) 03/02/2019 73.9 kg (163 lb) 02/23/2019 73 kg (161 lb) General appearance:ECOG PERFORMANCE STATUS: 0- Fully active, able to carry on all pre-disease performance w/o restriction. Patient in NAD. Skin: Skin color, texture, turgor normal. No rashes or lesions. Eyes: Anicteric sclera. Pupils are equally round and reactive to light. Extraocular movements are intact. Lymph Nodes: No cervical, supraclavicular, axillary or inguinal adenopathy. Oropharynx: Lips, mucosa, and tongue normal. Back: No pain to percussion. Negative SLR test Lungs clear to auscultation, No wheezing or rhonchi Heart: RRR without murmur, gallop, or rubs. Abdomen soft, non-tender. No masses, organomegaly Extremities: No deformities. No edema Neuro: Gait and speech normal. Reflexes normal and symmetric. Muscular strength intact. Sensation grossly intact. Rectal: Deferred : Deferred Breast: Bilateral no masses and no axillary nodes. Chronic post lumpectomy changes in the R Breast LABS: Glucose (mg/dL) Date Value 02/02/2022 159 Potassium (mmol/L) Date Value 02/02/2022 3.9 Sodium (mmol/L) Date Value 02/02/2022 142 Chloride (mmol/L) Date Value 02/02/2022 102 CO2 (mmol/L) Date Value 02/02/2022 28 Creatinine (mg/dL) Date Value 02/02/2022 0.85 BUN (mg/dL) Date Value 02/02/2022 14 Anion Gap (mmol/L) Date Value 02/02/2022 12 Calcium, Total (mg/dL) Date Value 02/02/2022 9.2 Protein, Total (g/dL) Date Value 02/02/2022 7.4 Albumin (g/dL (more content not included)...[facility]10-20-2023 History of Present illness Narrative* Raffy Singleton MD - 02/01/2023 9:52 AM EDT Images from the original note were not included. PATIENT NAME: Alyssa Valdez [facility] NO.: [id number] ATTENDING PHYSICIAN: Raffy Singleton MD DATE OF SERVICE: February 01, 2023 Some of the elements of this note have been copied from my previous progress note dated 02/03/2022.All the information has been reviewed carefully. Dear Dr. Tato Bagley, here is an update on a follow up visit on female Alyssa Valdez at the clinic February 01, 2023 Diagnosis: 1. Right sided breast cancer, invasive lobular carcinoma, grade 2, margins negative, no evidence oflymphovascular space invasion. Tumor is 15 mm in size. ER and RI strongly positive, greater than 95%. Fish negative for HER-2 overexpression. Oncotype DX recurrence score of 5. Treatment History: 1. Right breast lumpectomy and sentinel lymph node biopsy December 24, [address] Ze Griffin 2. Right breast radiation therapy February 09, 2019 to March 06, 2019 by . 3. DEXA scan October 2017 with a T score of -2.1- Declined Bone resorptive agents on Vit D and Calcium Repeat Dex 12/2020 lowest T scrore -2.1 R femoral neck 4. Arimidex started in March 2019- Stopped 06/2021 due to intolerance and elected not to pursue any hormonal therapy. HPI: Alyssa Valdez is a 62 year old year old female here for follow up. Doing very well and denies any new complaints. Denies any fevers and or chills and denies any abdominal pain and or diarrhea. She has some R hand pain due to her repetitive work, PAST MEDICAL HISTORY Diagnosis Date Asthma in adult GERD (gastroesophageal reflux disease) HTN (hypertension) Hypercholesteremia Hyperlipidemia Hypertension Obesity Social History Tobacco Use Smoking status: Former Packs/day: .5 Types: Cigarettes Start date: 04/15/1971 Quit date: 04/15/1979 Years since quittin.8 Passive exposure: Past Smokeless tobacco: Never Vaping Use Vaping Use: Never used Substance Use Topics Alcohol use: No Drug use: No FAMILY HISTORY Problem Relation Age of Onset Diabetes Mother Hypertension Mother Cancer Mother lymphoma Lipids Mother Hypertension Father COPD Father Lipids Father Hypertension Sister 3 sisters Diabetes Sister 1 sister Past medical, social and family history reviewed without any changes. REVIEW OF SYSTEMS GENERAL: No weight loss, malaise or fevers. No night sweats. HEENT: Negative for headaches, No changes in hearing or vision, no nose bleeds or other nasal problems. RESPIRATORY: Negative for cough, wheezing and shortness of breath CARDIOVASCULAR: Negative for chest pain, leg swelling and palpitations GI: Negative for abdominal discomfort, blood in stools or black stools and change in bowel habits : Negative for dysuria, frequency and incontinence MUSCULOSKELETAL: Negative for joint pain or swelling, back pain, and muscle pain. SKIN: Negative for lesions, rash, and itching. HEMATOLOGY/LYMPHOLOGY Negative for prolonged bleeding, bruising easily, and swollen nodes. NEURO: Negative for numbness or tingling of hands/feet. No weakness. PHYSICAL EXAMINATION: BP 149/79 Pulse 61 Temp (Src) 97.9 (Temporal) Resp 16 Wt 159 lb 3.2 oz (72.2kg) SpO2 100% Wt 73.2 kg (161 lb 6.4 oz) BMI 27.29 kg/m2 Last 3 Encounter Wt Readings: Date: Wt: 10/09/2019 73.2 kg (161 lb 6.4 oz) 03/02/2019 73.9 kg (163 lb) 02/23/2019 73 kg (161 lb) General appearance:ECOG PERFORMANCE STATUS: 0- Fully active, able to carry on all pre-disease performance w/o restriction. Patient in NAD. Skin: Skin color, texture, turgor normal. No rashes or lesions. Eyes: Anicteric sclera. Pupils are equally round and reactive to light. Extraocular movements are intact. Lymph Nodes: No cervical, supraclavicular, axillary or inguinal adenopathy. Oropharynx: Lips, mucosa, and tongue normal. Back: No pain to percussion. Negative SLR test Lungs clear to auscultation, No wheezing or rhonchi Heart: RRR without murmur, gallop, or rubs. Abdomen soft, non-tender. No masses, organomegaly Extremities: No deformities. No edema Neuro: Gait and speech normal. Reflexes normal and symmetric. Muscular strength intact. Sensation grossly intact. Rectal: Deferred : Deferred Breast: Bilateral no masses and no axillary nodes. Chronic post lumpectomy changes in the R Breast LABS: Glucose (mg/dL) Date Value 02/02/2022 159 Potassium (mmol/L) Date Value 02/02/2022 3.9 Sodium (mmol/L) Date Value 02/02/2022 142 Chloride (mmol/L) Date Value 02/02/2022 102 CO2 (mmol/L) Date Value 02/02/2022 28 Creatinine (mg/dL) Date Value 02/02/2022 0.85 BUN (mg/dL) Date Value 02/02/2022 14 Anion Gap (mmol/L) Date Value 02/02/2022 12 Calcium, Total (mg/dL) Date Value 02/02/2022 9.2 Protein, Total (g/dL) Date Value 02/02/2022 7.4 Albumin (g/dL) Date Value 02/02/2022 4.8 Bilirubin, Total (mg/dL) Date Value 02/02/2022 0.6 Alkaline Phosphatase (U/L) Date Value 02/02/2022 104 AST (U/L) Date Value 02/02/2022 24 ALT (U/L) Date Value 02/02/2022 25 WBC Date Value Ref Range Status 02/02/2022 3.78 3.70 - 11.00 k/uL Final RBC Date Value Ref Range Status 02/02/2022 5.05 3.90 - 5.20 m/uL Final Hemoglobin Date Value Ref Range Status 02/02/2022 14.7 11.5 - 15.5 g/dL Final Hematocrit Date Value Ref Range Status 02/02/2022 43.1 36.0 - 46.0 % Final MCV Date Value Ref Range Status 02/02/2022 85.3 80.0 - 100.0 fL Final MCH Date Value Ref Range Status 02/02/2022 29.1 26.0 - 34.0 pg Final MCHC Date Value Ref Range Status 02/02/2022 34.1 30.5 - 36.0 g/dL Final RDW-CV Date Value Ref Range Status 02/02/2022 12.2 11.5 - 15.0 % Final Platelet Count Date Value Ref Range Status 02/02/2022 184 150 - 400 k/uL Final MPV Date Value Ref Range Status 02/02/2022 9.6 9.0 - 12.7 fL Final Abs Neut Date Value Ref Range Status 02/02/2022 2.62 1.45 - 7.50 k/uL Final Lymphocytes % Date Value Ref Range Status 02/02/2022 19.6 % Final Abs Lymph Date Value Ref Range Status 02/02/2022 0.74 (L) 1.00 - 4.00 k/uL Final Monocytes % Date Value Ref Range Status 02/02/2022 8.2 % Final Abs Trigg Date Value Ref Range Status 02/02/2022 0.31 <0.87 k/uL Final Eosinophils % Date Value Ref Range Status 02/02/2022 2.1 % Final Abs Eosin Date Value Ref Range Status 02/02/2022 0.08 <0.46 k/uL Final Basophils % Date Value Ref Range Status 02/02/2022 0.5 % Final Abs Baso Date Value Ref Range Status 02/02/2022 <0.03 <0.11 k/uL Final PATH: As per history of present illness Imaging: Mammogram 12/2022: Assessment and Plan: Alyssa Valdez is a 62 year old year old female here for follow up. History of T1c, and N0, M0 right breast cancer status post right breast lumpectomy and sentinel lymph node biopsy December 2018. The tumor is strongly ER/RI positive, HER-2/avery negative with an Oncotype DX recurrence score of 5. She completed radiation therapy and is was on Arimidex until 06/2021 and she elected to stop secondary to tolerance issues. After a long discussion and discussing alternatives she elected not to pursue any hormonal theraoy Dexa scan reviewed and declined bone resorptive agents in the past and continue calcium and Vit D Mammogram 12/2022 was negative and repeat 12/2023 See back in 12 months for follow up and mammogram Thank you for the kind referral. If there are any questions and or concerns please do not hesitate to contact me at [phone]. Raffy Singleton MD Hematology/Medical Oncology [facility] CC: MD Ze Kessler MD Philip Engeler, MD I spent a total of 30 minutes on the date of the service which included preparing to see the patient, [id number] patient care, completing clinical documentation, obtaining and/or reviewing separately obtained history, performing a medically appropriate examination, counseling and educating the pat ient/family/caregiver, ordering medications, tests, or procedures, and communicating with other HCPs (not separately reported). [facility] NoteHNO ID: [id number] Author: Vaishnavi Stearns PA-C Service: ? Author Type: Physician Anesthesiology Technologist Type: Progress Notes Filed: 08/03/2022 10:16 AM Note Text: PATIENT NAME: Alyssa Valdez CLINIC NO.: [id number] ATTENDING PHYSICIAN: Raffy Singleton MD DATE OF SERVICE: August 03, 2022 (Elements copied from Dr. Singleton's note dated February 03, 2022, have been reviewed and updated where appropriate, and all reflect current assessment and medical decision making during today's encounter, August 03, 2022) CC: Follow up Diagnosis: 1. Right sided breast cancer, invasive lobular carcinoma, grade 2, margins negative, no evidence of lymphovascular space invasion. Tumor is 15 mm in size. ER and RI strongly positive, greater than 95%. Fish negative for HER-2 overexpression. Oncotype DX recurrence score of 5. Treatment History: 1. Right breast lumpectomy and sentinel lymph node biopsy December 24, [address] Ze Griffin 2. Right breast radiation therapy February 09, 2019 to March 06, 2019 by . 3. DEXA scan October 2017 with a T score of -2.1- Declined Bone resorptive agents on Vit D and Calcium Repeat Dex 12/2020 lowest T scrore -2.1 R femoral neck 4. Arimidex started in March 2019- Stopped 06/2021 due to intolerance and elected not to pursue any hormonal therapy. HPI: Alyssa returns for 6 month follow up. She has been doing well. Remains on 1200 mg calcium and 5000 international unit(s) of vitamin D. Appetite is good. Having some pain in the base of her right thumb. She has had some pulling pain in the radiaiton field as well with certain movements, but this is unchanged. Had a right mamm 07/2022 which is documented below. PAST MEDICAL HISTORY Diagnosis Date Asthma in adult GERD (gastroesophageal reflux disease) HTN (hypertension) Hypercholesteremia Hyperlipidemia Hypertension Obesity Social History Tobacco Use Smoking status: Former Packs/day: 0.50 Types: Cigarettes Start date: 04/15/1971 Quit date: 04/15/1979 Years since quittin.3 Passive exposure: Past Smokeless tobacco: Never Vaping Use Vaping Use: Never used Substance Use Topics Alcohol use: No Drug use: No FAMILY HISTORY Problem Relation Age of Onset Diabetes Mother Hypertension Mother Cancer Mother lymphoma Lipids Mother Hypertension Father COPD Father Lipids Father Hypertension Sister 3 sisters Diabetes Sister 1 sister Past medical, social and family history reviewed without any changes. REVIEW OF SYSTEMS GENERAL: No weight loss, malaise or fevers. No night sweats. HEENT: Negative for headaches, No changes in hearing or vision, no nose bleeds or other nasal problems. RESPIRATORY: Negative for cough, wheezing and shortness of breath CARDIOVASCULAR: Negative for chest pain, leg swelling and palpitations GI: Negative for abdominal discomfort, blood in stools or black stools and change in bowel habits : Negative for dysuria, frequency and incontinence MUSCULOSKELETAL: Negative for joint pain or swelling, back pain, and muscle pain. SKIN: Negative for lesions, rash, and itching. HEMATOLOGY/LYMPHOLOGY Negative for prolonged bleeding, bruising easily, and swollen nodes. NEURO: Negative for numbness or tingling of hands/feet. No weakness. PHYSICAL EXAMINATION: BP 137/78 Pulse 56 Temp (Src) 97.6 (Temporal) Ht 5' 3.78 (1.62m) Wt 161 lb (73.0kg) SpO2 100% BMI 27.83 kg/(m2). ECOG PERFORMANCE STATUS: 0- Fully active, able to carry on all pre-disease performance w/o restriction. General: Alert and oriented, no distress, pleasant and cooperative. Heart: Regular, normal S1 and S2, no murmurs, rubs, or gallops Lungs: Clear to auscultation bilaterally Abdomen: Benign Extremities: Feet/ankles without edema, posterior tibial pulses full and symmetrical Breast: Bilateral breasts without masses or skin changes. Chronic scarring at right lumpectomy site. No cervical, SC or axillary nodes. LABS: PATH: As per history of present illness Imaging: Mammogram 12/2021: Right mammogram 07/25/2022 Assessment and Plan: Alyssa Valdez is a 61 year old year old female here for follow up. History of T1c, and N0, M0 right breast cancer status post right breast lumpectomy and sentinel lymph node biopsy December 2018. The tumor is strongly ER/RI positive, HER-2/avery negative with an Oncotype DX recurrence score of 5. She completed radiation therapy and is was on Arimidex until 06/2021 and she elected to stop secondary to tolerance issues. After a long discussion and discussing alternatives she elected not to pursue any hormonal therapy Dexa scan reviewed and declined bone resorptive agents in the past and continue calcium and Vit D She is doing well and is in active surveillance. Will repeat yearly bilateral mammograms in 6 months and see her back. Vaishnavi Stearns PA-C CC: MD Ze Kessler MD Philip Engeler, M (more content not included)...[facility] 08-03-2022 History of Present illness Narrative* Vaishnavi Stearns PA-C - 08/03/2022 10:00 AM EDT Images from the original note were not included. PATIENT NAME: Alyssa Valdez [facility] NO.: [id number] ATTENDING PHYSICIAN: Raffy Singleton MD DATE OF SERVICE: August 03, 2022 (Elements copied from Dr. Singleton's note dated February 03, 2022, have been reviewed and updated where appropriate, and all reflect current assessment and medical decision making during today's encounter, August 03, 2022) CC: Follow up Diagnosis: 1. Right sided breast cancer, invasive lobular carcinoma, grade 2, margins negative, no evidence oflymphovascular space invasion. Tumor is 15 mm in size. ER and RI strongly positive, greater than 95%. Fish negative for HER-2 overexpression. Oncotype DX recurrence score of 5. Treatment History: 1. Right breast lumpectomy and sentinel lymph node biopsy December 24, [address] Ze Griffin 2. Right breast radiation therapy February 09, 2019 to March 06, 2019 by . 3. DEXA scan October 2017 with a T score of -2.1- Declined Bone resorptive agents on Vit D and Calcium Repeat Dex 12/2020 lowest T scrore -2.1 R femoral neck 4. Arimidex started in March 2019- Stopped 06/2021 due to intolerance and elected not to pursue any hormonal therapy. HPI: Alyssa returns for 6 month follow up. She has been doing well. Remains on 1200 mg calcium and 5000 international unit(s) of vitamin D. Appetite is good. Having some pain in the base of her right thumb. She has had some pulling pain inthe radiaiton field as well with certain movements, but this is unchanged. Had a right mamm 07/2022 which is documented below. PAST MEDICAL HISTORY Diagnosis Date Asthma in adult GERD (gastroesophageal reflux disease) HTN (hypertension) Hypercholesteremia Hyperlipidemia Hypertension Obesity Social History Tobacco Use Smoking status: Former Packs/day: 0.50 Types: Cigarettes Start date: 04/15/1971 Quit date: 04/15/1979 Years since quittin.3 Passive exposure: Past Smokeless tobacco: Never Vaping Use Vaping Use: Never used Substance Use Topics Alcohol use: No Drug use: No FAMILY HISTORY Problem Relation Age of Onset Diabetes Mother Hypertension Mother Cancer Mother lymphoma Lipids Mother Hypertension Father COPD Father Lipids Father Hypertension Sister 3 sisters Diabetes Sister 1 sister Past medical, social and family history reviewed without any changes. REVIEW OF SYSTEMS GENERAL: No weight loss, malaise or fevers. No night sweats. HEENT: Negative for headaches, No changes in hearing or vision, no nose bleeds or other nasal problems. RESPIRATORY: Negative for cough, wheezing and shortness of breath CARDIOVASCULAR: Negative for chest pain, leg swelling and palpitations GI: Negative for abdominal discomfort, blood in stools or black stools and change in bowel habits : Negative for dysuria, frequency and incontinence MUSCULOSKELETAL: Negative for joint pain or swelling, back pain, and muscle pain. SKIN: Negative for lesions, rash, and itching. HEMATOLOGY/LYMPHOLOGY Negative for prolonged bleeding, bruising easily, and swollen nodes. NEURO: Negative for numbness or tingling of hands/feet. No weakness. PHYSICAL EXAMINATION: BP 137/78 Pulse 56 Temp (Src) 97.6 (Temporal) Ht 5' 3.78 (1.62m) Wt 161 lb (73.0kg) [id number]% BMI 27.83 kg/(m^2). ECOG PERFORMANCE STATUS: 0- Fully active, able to carry on all pre-disease performance w/o restriction. General: Alert and oriented, no distress, pleasant and cooperative. Heart: Regular, normal S1 and S2, no murmurs, rubs, or gallops Lungs: Clear to auscultation bilaterally Abdomen: Benign Extremities: Feet/ankles without edema, posterior tibial pulses full and symmetrical Breast: Bilateral breasts without masses or skin changes. Chronic scarring at right lumpectomy site. No cervical, SC or axillary nodes. LABS: PATH: As per history of present illness Imaging: Mammogram 12/2021: Right mammogram 07/25/2022 Assessment and Plan: Alyssa Valdez is a 61 year old year old female here for follow up. History of T1c, and N0, M0 right breast cancer status post right breast lumpectomy and sentinel lymph node biopsy December 2018. The tumor is strongly ER/RI positive, HER-2/avery negative with an Oncotype DX recurrence score of 5. She completed radiation therapy and is was on Arimidex until 06/2021 and she elected to stop secondary to tolerance issues. After a long discussion and discussing alternatives she elected not to pursue any hormonal therapy Dexa scan reviewed and declined bone resorptive agents in the past and continue calcium and Vit D She is doing well and is in active surveillance. Will repeat yearly bilateral mammograms in 6 months and see her back. Vaishnavi Stearns PA-C CC: MD Ze Kessler MD Philip Engeler, MD [facility] Miscellaneous Notes* Telephone Encounter - Eliane Kapoor RN - 02/05/2022 1:35 PM EDT Results reviewed with pt. Results faxed to Dr Bagley as well. Eliane Kapoor RN * Telephone Encounter - Eliane Kapoor RN - 02/05/2022 1:35 PM EDT ----- Message from Raffy Singleton MD sent at 02/03/2022 2:54 PM EDT ----- Let her know that Vit D levels are low and that she shoukd follow up with Dr. Bagley documented in this encounterPar[facility] History of Present illness Narrative* Raffy Singleton MD - 02/02/2022 10:18 AM EDT Images from the original note were not included. PATIENT NAME: Alyssa Valdez CLINIC NO.: [id number] ATTENDING PHYSICIAN: Raffy Singleton MD DATE OF SERVICE: February 03, 2022 Some of the elements of this note have been copied from my previous progress note dated 08/04/2021. All the information has been reviewed carefully. Dear Dr. Tato Bagley, here is an update on a follow up visit on female Alyssa Valdez at the clinic February 03, 2022 Diagnosis: 1. Right sided breast cancer, invasive lobular carcinoma, grade 2, margins negative, no evidence oflymphovascular space invasion. Tumor is 15 mm in size. ER and RI strongly positive, greater than 95%. Fish negative for HER-2 overexpression. Oncotype DX recurrence score of 5. Treatment History: 1. Right breast lumpectomy and sentinel lymph node biopsy December 24, [address] Ze Griffin 2. Right breast radiation therapy February 09, 2019 to March 06, 2019 by . 3. DEXA scan October 2017 with a T score of -2.1- Declined Bone resorptive agents on Vit D and Calcium Repeat Dex 12/2020 lowest T scrore -2.1 R femoral neck 4. Arimidex started in March 2019- Stopped 06/2021 due to intolerance and elected not to pursue any hormonal therapy. HPI: Alyssa Valdez is a 60 year old year old female here for follow up. Doing very well and denies any new complaints. Denies any fevers and or chills and denies any abdominal pain and or diarrhea PAST MEDICAL HISTORY Diagnosis Date Asthma in adult GERD (gastroesophageal reflux disease) HTN (hypertension) Hypercholesteremia Hyperlipidemia Hypertension Obesity Social History Tobacco Use Smoking status: Former Packs/day: 0.50 Types: Cigarettes Start date: 04/15/1971 Quit date: 04/15/1979 Years since quittin.8 Passive exposure: Past Smokeless tobacco: Never Vaping Use Vaping Use: Never used Substance Use Topics Alcohol use: No Drug use: No FAMILY HISTORY Problem Relation Age of Onset Diabetes Mother Hypertension Mother Cancer Mother lymphoma Lipids Mother Hypertension Father COPD Father Lipids Father Hypertension Sister 3 sisters Diabetes Sister 1 sister Past medical, social and family history reviewed without any changes. REVIEW OF SYSTEMS GENERAL: No weight loss, malaise or fevers. No night sweats. HEENT: Negative for headaches, No changes in hearing or vision, no nose bleeds or other nasal problems. RESPIRATORY: Negative for cough, wheezing and shortness of breath CARDIOVASCULAR: Negative for chest pain, leg swelling and palpitations GI: Negative for abdominal discomfort, blood in stools or black stools and change in bowel habits : Negative for dysuria, frequency and incontinence MUSCULOSKELETAL: Negative for joint pain or swelling, back pain, and muscle pain. SKIN: Negative for lesions, rash, and itching. HEMATOLOGY/LYMPHOLOGY Negative for prolonged bleeding, bruising easily, and swollen nodes. NEURO: Negative for numbness or tingling of hands/feet. No weakness. PHYSICAL EXAMINATION: BP 147/77 Pulse 60 Temp (Src) 98.9 (Temporal) Resp 16 Ht 5' 3.78 (1.62m) Wt 162 lb (73.5kg) SpO2 99% BMI 28.00 kg/(m^2). Wt 73.2 kg (161 lb 6.4 oz) BMI 27.29 kg/m2 Last 3 Encounter Wt Readings: Date: Wt: 10/09/2019 73.2 kg (161 lb 6.4 oz) 03/02/2019 73.9 kg (163 lb) 02/23/2019 73 kg (161 lb) General appearance:ECOG PERFORMANCE STATUS: 0- Fully active, able to carry on all pre-disease performance w/o restriction. Patient in NAD. Skin: Skin color, texture, turgor normal. No rashes or lesions. Eyes: Anicteric sclera. Pupils are equally round and reactive to light. Extraocular movements are intact. Lymph Nodes: No cervical, supraclavicular, axillary or inguinal adenopathy. Oropharynx: Lips, mucosa, and tongue normal. Back: No pain to percussion. Negative SLR test Lungs clear to auscultation, No wheezing or rhonchi Heart: RRR without murmur, gallop, or rubs. Abdomen soft, non-tender. No masses, organomegaly Extremities: No deformities. No edema Neuro: Gait and speech normal. Reflexes normal and symmetric. Muscular strength intact. Sensation grossly intact. Rectal: Deferred : Deferred Breast: Bilateral no masses and no axillary nodes. Chronic post lumpectomy changes in the R Breast LABS: Glucose (mg/dL) Date Value 08/04/2021 171 Potassium (mmol/L) Date Value 08/04/2021 3.7 Sodium (mmol/L) Date Value 08/04/2021 139 Chloride (mmol/L) Date Value 08/04/2021 100 CO2 (mmol/L) Date Value 08/04/2021 29 Creatinine (mg/dL) Date Value 08/04/2021 0.85 BUN (mg/dL) Date Value 08/04/2021 14 Anion Gap (mmol/L) Date Value 08/04/2021 10 Calcium, Total (mg/dL) Date Value 08/04/2021 9.7 Protein, Total (g/dL) Date Value 08/04/2021 7.0 Albumin (g/dL) Date Value 08/04/2021 4.7 Bilirubin, Total (mg/dL) Date Value 08/04/2021 0.6 Alkaline Phosphatase (U/L) Date Value 08/04/2021 115 AST (U/L) Date Value 08/04/2021 24 ALT (U/L) Date Value 08/04/2021 24 WBC Date Value Ref Range Status 02/02/2022 3.78 3.70 - 11.00 k/uL Final RBC Date Value Ref Range Status 02/02/2022 5.05 3.90 - 5.20 m/uL Final Hemoglobin Date Value Ref Range Status 02/02/2022 14.7 11.5 - 15.5 g/dL Final Hematocrit Date Value Ref Range Status 02/02/2022 43.1 36.0 - 46.0 % Final MCV Date Value Ref Range Status 02/02/2022 85.3 80.0 - 100.0 fL Final MCH Date Value Ref Range Status 02/02/2022 29.1 26.0 - 34.0 pg Final MCHC Date Value Ref Range Status 02/02/2022 34.1 30.5 - 36.0 g/dL Final RDW-CV Date Value Ref Range Status 02/02/2022 12.2 11.5 - 15.0 % Final Platelet Count Date Value Ref Range Status 02/02/2022 184 150 - 400 k/uL Final MPV Date Value Ref Range Status 02/02/2022 9.6 9.0 - 12.7 fL Final Abs Neut Date Value Ref Range Status 02/02/2022 2.62 1.45 - 7.50 k/uL Final Lymph% Date Value Ref Range Status 02/02/2022 19.6 % Final Abs Lymph Date Value Ref Range Status 02/02/2022 0.74 (L) 1.00 - 4.00 k/uL Final Trigg% Date Value Ref Range Status 02/02/2022 8.2 % Final Abs Trigg Date Value Ref Range Status 02/02/2022 0.31 <0.87 k/uL Final Eosin% Date Value Ref Range Status 02/02/2022 2.1 % Final Abs Eosin Date Value Ref Range Status 02/02/2022 0.08 <0.46 k/uL Final Baso% Date Value Ref Range Status 02/02/2022 0.5 % Final Abs Baso Date Value Ref Range Status 02/02/2022 <0.03 <0.11 k/uL Final PATH: As per history of present illness Imaging: Mammogram 12/2021: Assessment and Plan: Alyssa Valdez is a 61 year old year old female here for follow up. History of T1c, and N0, M0 right breast cancer status post right breast lumpectomy and sentinel lymph node biopsy December 2018. The tumor is strongly ER/RI positive, HER-2/avery negative with an Oncotype DX recurrence score of 5. She completed radiation therapy and is was on Arimidex until 06/2021 and she elected to stop secondary to tolerance issues. After a long discussion and discussing alternatives she elected not to pursue any hormonal theraoy Dexa scan reviewed and declined bone resorptive agents in the past and continue calcium and Vit D Mammogram with 6 months repeat study recommended See back in 6 months with repeat R sided study Thank you for the kind referral. If there are any questions and or concerns please do not hesitate to contact me at [phone]. Raffy Singleton MD Hematology/Medical Oncology [facility] CC: MD Ze Kessler MD Philip Engeler, MD I spent a total of 30 minutes on the date of the service which included preparing to see the patient, [id number] patient care, completing clinical documentation, obtaining and/or reviewing separately obtained history, performing a medically appropriate examination, counseling and educating the pat ient/family/caregiver, ordering medications, tests, or procedures, and communicating with other HCPs (not separately reported). documented in this encounterPar[facility]04[facility]22 History of Present illness Narrative* Raffy Singleton MD - 08/04/2021 3:37 PM EDT PATIENT NAME: Alyssa Valdez CLINIC NO.: [id number] ATTENDING PHYSICIAN: Raffy Singleton MD DATE OF SERVICE: August 04, 2021 Some of the elements of this note have been copied from my previous progress note dated 02/11/2021.All the information has been reviewed carefully. Dear Dr. Tato Bagley, here is an update on a follow up visit on female Alyssa Valdez at the clinic August 04, 2021 Diagnosis: 1. Right sided breast cancer, invasive lobular carcinoma, grade 2, margins negative, no evidence oflymphovascular space invasion. Tumor is 15 mm in size. ER and RI strongly positive, greater than 95%. Fish negative for HER-2 overexpression. Oncotype DX recurrence score of 5. Treatment History: 1. Right breast lumpectomy and sentinel lymph node biopsy December 24, [address] Ze Griffin 2. Right breast radiation therapy February 09, 2019 to March 06, 2019 by . 3. DEXA scan October 2017 with a T score of -2.1- Declined Bone resorptive agents on Vit D and Calcium Repeat Dex 12/2020 lowest T scrore -2.1 R femoral neck 4. Arimidex started in March 2019- Stopped 06/2021 due to intolerance and elected not to pursue any hormonal therapy. 5. Mammogram 12/2020- Negative , 12 month follow up recommended HPI: Alyssa Valdez is a 60 year old year old female here for follow up. She states that since stopping the Arimidex her MORTON and also depression has improved by 90% and she feels like herself. Denies any other complaints at this time, PAST MEDICAL HISTORY Diagnosis Date Asthma in adult GERD (gastroesophageal reflux disease) HTN (hypertension) Hypercholesteremia Hyperlipidemia Hypertension Obesity Social History Tobacco Use Smoking status: Former Smoker Packs/day: 0.50 Types: Cigarettes Start date: 04/15/1971 Quit date: 04/15/1979 Years since quittin.3 Smokeless tobacco: Never Used Vaping Use Vaping Use: Never used Substance Use Topics Alcohol use: No Drug use: No FAMILY HISTORY Problem Relation Age of Onset Diabetes Mother Hypertension Mother Cancer Mother lymphoma Lipids Mother Hypertension Father COPD Father Lipids Father Hypertension Sister 3 sisters Diabetes Sister 1 sister Past medical, social and family history reviewed without any changes. REVIEW OF SYSTEMS GENERAL: No weight loss, malaise or fevers. No night sweats. HEENT: Negative for headaches, No changes in hearing or vision, no nose bleeds or other nasal problems. RESPIRATORY: Negative for cough, wheezing and shortness of breath CARDIOVASCULAR: Negative for chest pain, leg swelling and palpitations GI: Negative for abdominal discomfort, blood in stools or black stools and change in bowel habits : Negative for dysuria, frequency and incontinence MUSCULOSKELETAL: Negative for joint pain or swelling, back pain, and muscle pain. SKIN: Negative for lesions, rash, and itching. HEMATOLOGY/LYMPHOLOGY Negative for prolonged bleeding, bruising easily, and swollen nodes. NEURO: Negative for numbness or tingling of hands/feet. No weakness. PHYSICAL EXAMINATION: BP 137/76 Pulse 79 Temp (Src) 98 (Temporal) Resp 16 Ht 5' 3.78 (1.62m) Wt 167 lb 3.2 oz (75.8kg) SpO2 98% BMI 28.90 kg/(m^2). Wt 73.2 kg (161 lb 6.4 oz) BMI 27.29 kg/m2 Last 3 Encounter Wt Readings: Date: Wt: 10/09/2019 73.2 kg (161 lb 6.4 oz) 03/02/2019 73.9 kg (163 lb) 02/23/2019 73 kg (161 lb) General appearance:ECOG PERFORMANCE STATUS: 0- Fully active, able to carry on all pre-disease performance w/o restriction. Patient in NAD. Skin: Skin color, texture, turgor normal. No rashes or lesions. Eyes: Anicteric sclera. Pupils are equally round and reactive to light. Extraocular movements are intact. Lymph Nodes: No cervical, supraclavicular, axillary or inguinal adenopathy. Oropharynx: Lips, mucosa, and tongue normal. Back: No pain to percussion. Negative SLR test Lungs clear to auscultation, No wheezing or rhonchi Heart: RRR without murmur, gallop, or rubs. Abdomen soft, non-tender. No masses, organomegaly Extremities: No deformities. No edema Neuro: Gait and speech normal. Reflexes normal and symmetric. Muscular strength intact. Sensation grossly intact. Rectal: Deferred : Deferred Breast: Bilateral no masses and no axillary nodes LABS: Glucose (mg/dL) Date Value 08/04/2021 171 Potassium (mmol/L) Date Value 08/04/2021 3.7 Sodium (mmol/L) Date Value 08/04/2021 139 Chloride (mmol/L) Date Value 08/04/2021 100 CO2 (mmol/L) Date Value 08/04/2021 29 Creatinine (mg/dL) Date Value 08/04/2021 0.85 BUN (mg/dL) Date Value 08/04/2021 14 Anion Gap (mmol/L) Date Value 08/04/2021 10 Calcium, Total (mg/dL) Date Value 08/04/2021 9.7 Protein, Total (g/dL) Date Value 08/04/2021 7.0 Albumin (g/dL) Date Value 08/04/2021 4.7 Bilirubin, Total (mg/dL) Date Value 08/04/2021 0.6 Alkaline Phosphatase (U/L) Date Value 08/04/2021 115 AST (U/L) Date Value 08/04/2021 24 ALT (U/L) Date Value 08/04/2021 24 WBC Date Value Ref Range Status 08/04/2021 5.44 3.70 - 11.00 k/uL Final RBC Date Value Ref Range Status 08/04/2021 4.50 3.90 - 5.20 m/uL Final Hemoglobin Date Value Ref Range Status 08/04/2021 12.9 11.5 - 15.5 g/dL Final Hematocrit Date Value Ref Range Status 08/04/2021 38.3 36.0 - 46.0 % Final MCV Date Value Ref Range Status 08/04/2021 85.1 80.0 - 100.0 fL Final MCH Date Value Ref Range Status 08/04/2021 28.7 26.0 - 34.0 pg Final MCHC Date Value Ref Range Status 08/04/2021 33.7 30.5 - 36.0 g/dL Final RDW-CV Date Value Ref Range Status 08/04/2021 12.2 11.5 - 15.0 % Final Platelet Count Date Value Ref Range Status 08/04/2021 176 150 - 400 k/uL Final MPV Date Value Ref Range Status 08/04/2021 9.8 9.0 - 12.7 fL Final Abs Neut Date Value Ref Range Status 08/04/2021 3.90 1.45 - 7.50 k/uL Final Lymph% Date Value Ref Range Status 08/04/2021 16.4 % Final Abs Lymph Date Value Ref Range Status 08/04/2021 0.89 (L) 1.00 - 4.00 k/uL Final Trigg% Date Value Ref Range Status 08/04/2021 9.7 % Final Abs Trigg Date Value Ref Range Status 08/04/2021 0.53 <0.87 k/uL Final Eosin% Date Value Ref Range Status 08/04/2021 1.1 % Final Abs Eosin Date Value Ref Range Status 08/04/2021 0.06 <0.46 k/uL Final Baso% Date Value Ref Range Status 08/04/2021 0.4 % Final Abs Baso Date Value Ref Range Status 08/04/2021 <0.03 <0.11 k/uL Final PATH: As per history of present illness Imaging: As per history of present illness Assessment and Plan: Alyssa Valdez is a 60 year old year old female here for follow up. History of T1c, and N0, M0 right breast cancer status post right breast lumpectomy and sentinel lymph node biopsy December 2018. The tumor is strongly ER/RI positive, HER-2/avery negative with an Oncotype DX recurrence score of 5. She completed radiation therapy and is was on Arimidex until 06/2021 and she elected to stop secondary to tolerance issues. After a long discussion and discussing alternatives she elected not to pursue any hormonal theraoy Dexa scan reviewed and declined bone resorptive agents in the past and continue calcium and Vit D Next mammogram 12/2021 Continue Zoloft for depression, Increase dose to 50 mg daily- See back in 6 months Thank you for the kind referral. If there are any questions and or concerns please do not hesitate to contact me at [phone]. Raffy Singleton MD Hematology/Medical Oncology [facility] CC: MD Ze Kessler MD Philip Engeler, MD documented in [facility] History of Present illness Narrative* Glenna Yeager, FLOOR TECHNICIAN - 07/12/2021 4:43 PM EDT Assessment Completed Social Work Problem Referral Note INFORMATION/REFERRAL : Alyssa Valdez 60 year old female [facility] the following [facility]s): Additional support PERSONS INTERVIEWED: patient INTERVENTION: Information & Referral Service Co-ordination Affect/Mood: The patient is noted as anxious, being sad and tearful IDENTIFIED PROBLEMS/NEEDS: Information Intervention/Referral to be provided:Information for community resources/agencies IMPRESSION/PLAN: Patient scored a 12 on the PHQ-9 and positive for question #9 which asks if someone would wish to go to sleep and not wake up or have thoughts of harming self. SW met with this Patient in exam room 6. Patient was tearful as she talked about how she is feeling depressed and anxious. Patient shares some frustration that she cannot pinpoint why she is feeling this way. Patient did mention that she has felt this way before. Patient has a limited support system that allows her to fully express herself. Patient has a and 2 grown children, 2 grandchildren and one on the way. Patient works 4 days a week 10 hour shifts. Patient is off typically on Fridays and tries to use that day for self-care. Talked to Patient about the importance of self-care. Explored with the Patient if she was interested in community mental health services and the Patient will think about it. Shared with Patient that [facility] is available. SW provided a flyer with the [facility] open studio hours. Patient denied feeling suicidal and has no plans for self harm. Patient is going to be adjusting her medication with the PA's assistance and she is hopeful that her emotional state will improve. Patient also has a prescription for Zoloft if/when she wants to begin taking that medication to help with her mood.SW encouraged this Patient to reach out to this SW if she would additional support or a referral tocommunity mental health services SW will remain available and will follow up as appropriate. DAVID Sellers documented in this encounterPar[facility]03[facility] History of Present illness Narrative* Vaishnavi Stearns PA-C - 07/12/2021 11:00 AM EDT PATIENT NAME: Alyssa Valdez [facility] NO.: [id number] ATTENDING PHYSICIAN: Raffy Singleton MD DATE OF SERVICE: July 12, 2021 (Elements copied from Dr. Singleton's note date, 2020, haved January 11 been reviewed and updated where appropriate, and all reflect current assessment and medical decision making during today's encounter, July 12, 2021) CC: Follow up Diagnosis: 1. Right sided breast cancer, invasive lobular carcinoma, grade 2, margins negative, no evidence oflymphovascular space invasion. Tumor is 15 mm in size. ER and RI strongly positive, greater than 95%. Fish negative for HER-2 overexpression. Oncotype DX recurrence score of 5. Treatment History: 1. Right breast lumpectomy and sentinel lymph node biopsy December 24, [address] Ze Griffin 2. Right breast radiation therapy February 09, 2019 to March 06, 2019 by . 3. DEXA scan October 2017 with a T score of -2.1- Declined Bone resorptive agents on Vit D and Calcium Repeat Dex 12/2020 lowest T scrore -2.1 R femoral neck 4. Arimidex started in March 2019 5. Mammogram 12/2020- Negative , 12 month follow up recommended HPI: Alyssa returns for her 6 months follow up. Remains on arimidex. Has been experiencing increased anxiety and depression symptoms over the last few months. Cannot identify a specific cause or stressor. Has had thoughts of hurting herself, but never a plan. She feels her symptoms are related to her arimidex. She had similar symptoms years ago when she was going through pre-menopause. At the time she was placed on an SSRI but eventually weaned off of that. She has not had any problems until now. She also reports headache that is becoming more consistant for a few months. It is located mostly frontal. She also has noticed some vision changes and blurriness. No ataxia or dizziness. Otherwise she denies any fever, chills, nausea, vomiting, pain. PAST MEDICAL HISTORY Diagnosis Date Asthma in adult GERD (gastroesophageal reflux disease) HTN (hypertension) Hypercholesteremia Hyperlipidemia Hypertension Obesity Social History Tobacco Use Smoking status: Former Smoker Packs/day: 0.50 Types: Cigarettes Start date: 04/15/1971 Quit date: 04/15/1979 Years since quittin.2 Smokeless tobacco: Never Used Vaping Use Vaping Use: Never used Substance Use Topics Alcohol use: No Drug use: No FAMILY HISTORY Problem Relation Age of Onset Diabetes Mother Hypertension Mother Cancer Mother lymphoma Lipids Mother Hypertension Father COPD Father Lipids Father Hypertension Sister 3 sisters Diabetes Sister 1 sister Past medical, social and family history reviewed without any changes. REVIEW OF SYSTEMS GENERAL: No weight loss, malaise or fevers. No night sweats. HEENT: No changes in hearing , no nose bleeds or other nasal problems. +headaches and blurred vision RESPIRATORY: Negative for cough, wheezing and shortness of breath CARDIOVASCULAR: Negative for chest pain, leg swelling and palpitations GI: Negative for abdominal discomfort, blood in stools or black stools and change in bowel habits : Negative for dysuria, frequency and incontinence MUSCULOSKELETAL: Negative for joint pain or swelling, back pain, and muscle pain. SKIN: Negative for lesions, rash, and itching. HEMATOLOGY/LYMPHOLOGY Negative for prolonged bleeding, bruising easily, and swollen nodes. NEURO: Negative for numbness or tingling of hands/feet. No weakness. Psych: anxiety and depression PHYSICAL EXAMINATION: BP 150/68 Pulse 61 Temp (Src) 97.6 (Temporal) Resp 16 Ht 5' 3.78 (1.62m) Wt 168 lb (76.2kg) SpO2 99% BMI 29.04 kg/(m^2). ECOG PERFORMANCE STATUS: 0- Fully active, able to carry on all pre-disease performance w/o restriction. Patient in NAD. Patient is tearful General: Alert and oriented, no distress, pleasant and cooperative. Heart: Regular, normal S1 and S2, no murmurs, rubs, or gallops Lungs: Clear to auscultation bilaterally Abdomen: Benign Extremities: Feet/ankles without edema, posterior tibial pulses full and symmetrical Breast: bilateral breast exam without masses. No cervical, supraclavicular or axillary nodes palpable LABS: PATH: As per history of present illness Imaging: As per history of present illness Assessment and Plan: Alyssa Valdez is a 60 year old year old female here for follow up. History of T1c, and N0, M0 right breast cancer status post right breast lumpectomy and sentinel lymph node biopsy December 2018. The tumor is strongly ER/RI positive, HER-2/avery negative with an Oncotype DX recurrence score of 5. She completed radiation therapy and is currently on Arimidex. She is currently having anxiety and depression symptoms. She feels it may be related to hormonal imbalance from arimidex, as she had experienced this in the past. We agreed to a break from arimidex and a trial of zoloft (confirmed with pharmacy zoloft would not interact with AIs or tamoxifen if we so decide in the future). She will meet with our social economist today as well. She is having more frequent headaches and some visual changes, and I recommended and MRI of the brain as well. We will seeher back in 3 weeks for follow up. Dexa scan reviewed and declined bone resorptive agents in the past and continue calcium and Vit D Next mammogram 12/2021 Vaishnavi Stearns PA-C documented in this encounterK[facility] note No data available for this section [facility]* Diagnosis Malignant neoplasm of right breast in female, estrogen receptor positive, unspecified site of breast (HCC)- Primary Osteopenia, unspecified location Anxiety and depression Dysthymic disorder Headaches documented in this encounter [facility]* Diagnosis Malignant neoplasm of right breast in female, estrogen receptor positive, unspecified site of breast (HCC)- Primary [facility] encounter [facility]* Diagnosis Malignant neoplasm of right breast in female, estrogen receptor positive, unspecified site of breast (HCC)- Primary documented in this encounter [facility]* Diagnosis History of breast cancer in female- Primary Personal history of malignant neoplasm of breast Osteopenia, unspecified location Encounter for screening mammogram for malignant neoplasm of breast Other screening mammogram documented in this encounter [facility]* Diagnosis Encounter for screening for malignant neoplasm of breast, unspecified screening modality- Primary History of breast cancer in female Personal history of malignant neoplasm of breast documented [facility] encounter [facility]* Diagnosis Onset Date Resolution Status Arthritis of carpometacarpal (CMC) joint of right thum b acute [facility] Work Phone: Evaluation note* Diagnosis Onset Date Resolution Status Arthritis of carpometacarpal (CMC) joint of right thumb acute Breast cancer acute Elevated cholesterol acute Generalized anxiety disorder acute Impaired fasting glucose acu te Leukopenia acute Primary hypertension acute Venous insufficiency (chronic) (peripheral) acute Wellness examination noneact jocelin [facility] Work Phone: Evaluation noteNo InformationNortInd[facility] [employer] Other History general Narrative - Reported* Type Description Date Medical History hypertension Medical History Cholesterol Medical History fx lt ankle Medical History Right breast cancer: lumpectomy, radiation Surgical History JESSE/BSO 2000 Surgical History ORIF LEFT ANKLE Surgical History GANGLION CYST/RIGHT WRIST Surgical History X2 Surgical History Lumpectomy, LN dissection Hospitalization History see surgical history [facility] [employer] Other Hospital Discharge instructions No data available for this section [facility] No data available for this section [facility] for referral (narrative)* Diagnostic Procedure Only (Routine) - Pending Review Specialty Diagnoses / Procedures Referred By Madelin kyle Referred To Contact [facility] Diagnoses Malignant neoplasm of right breast in female, estrogen receptor positive, unspecified site of breast (HCC) Procedures AMELIA DIAGNOSTIC BILAT DIAGNOSTIC MAMMOGRAPHY COMPUTER-AIDED DETCJ BI Raffy Singleton MD [address] [place] [id number] [facility] [address] [place] [address] Referral ID Status Reason Start Date Expiration Date Visits Requested Visits Authorized [id number] Pending Review Auto-Generat ed Referral 01/04/2022 09/03/2022 1 1 [facility] for referral (narrative)* Diagnostic Procedure Only (Routine) - Pending Review Specialty Diagnoses / Procedures Referred By Contac t Referred To Contact [facility] Diagnoses Malignant neoplasm of right breast in female, estrogen receptor positive, unspecified site of breast (HCC) Procedures AMELIA DIAGNOSTIC RT DIAGNOSTIC MAMMOGRAPHY COMPUTER-AIDED DETCJ Raffy Sweet MD [address] [place] [address] [facility] [address] [place] [address] Referral ID Status Reason Start Date Expiration Date Visits Requested Visits Authorized [id number] Pending Review Auto-Generat ed Referral 08/03/2022 03/04/2023 1 1 T [facility] for referral (narrative)* Diagnostic Procedure Only (Routine) - Pending Review Specialty Diagnoses / Procedures Referred By Catrachitoac t Referred To Contact [facility] Diagnoses History of breast cancer in female Encounter for screening mammogram for malignant neoplasm of breast Procedures AMELIA SCREENING W MIGUEL SCREENING DIGITAL BREAST TOMOSYNTHESIS BI SCREENING MAMMOGRAPHY BI 2-VIEW BREAST INC CAD Vaishnavi Stearns PA-C [address] [place] [address] [facility] [address] [place] [address] Referral ID Status Reason Start Date Expiration Date Visits Requested Visits Authorized [id number] Pending Review Auto-Generat ed Referral 08/03/2022 09/02/2023 1 1 [facility] for referral (narrative)* Diagnostic Procedure Only (Routine) - Pending Review Specialty Diagnoses / Procedures Referred By Contac t Referred To Contact [facility] Diagnoses Encounter for screening for malignant neoplasm of breast, unspecified screening modality Procedures AMELIA SCREENING W MIGUEL SCREENING DIGITAL BREAST TOMOSYNTHESIS BI SCREENING MAMMOGRAPHY BI 2-VIEW BREAST INC Raffy Hill MD [address] [place] [address] [facility] [address] [place] [address] Referral ID Status Reason Start Date Expiration Date Visits Requested Visits Authorized [id number] Pending Review Auto-Generat ed Referral 4 03/02/2024 1 1 [facility] Discharge Instructions * Instructions* Ina Lr MD - 05/22/2020 Tylenol 650, 3 times daily as needed for pain Ice * Attachments The following attachments cannot be sent through Care Everywhere. * Kneecap Fracture (Maori) documented in this encounter Assessments Diagnosis Closed nondisplaced comminuted fracture of left patella, initial encounter- Primary Diagnosis Other closed fracture of left patella, initial encounter Diagnosis Closed displaced comminuted fracture of left patella, initial encounter Summary Purpose Family History Relationship Condition Age at Onset Recorded Date/T edvin family member Unknown Not Specified Unknown sister Unknown Relationship Condition Age at Onset Recorded Date/T edvin family member Unknown mother Unknown sister Unknown Advance Directives Advance Directive Response Recorded Date/ Time Advance Directives No December 3:47pm Reason for Referral Specialty Diagnoses / Procedures Referred By Madelin t Referred To Contact [facility] Diagnoses Malignant neoplasm of right breast in female, estrogen receptor positive, unspecified site of breast (HCC) Osteopenia, unspecified location Anxiety and depression Headaches Procedures MRI BRAIN WO/W IVCON MRI BRAIN BRAIN STEM W/O W/CONTRAST MATERIAL Vaishnavi Stearns PA-C [address] [place] [address] [address] [place] [address] [facility] Referral ID Status Reason Start Date Expiration Date Visits Requested Visits Authorized [id number] Authorized Auto-Generat ed Referral 07/12/2021 10/10/2021 1 1 Chief Complaint and Reason for Visit Chief Complaint 6 Month Follow Up CONSULT DR Remigio BAGLEY RT [facility] ARTHRITIS NX M79.644 - Pain in right finger(s) Reason for Visit Arthritis of carpome tacarpal (CMC) joint of right thumb Chief Complaint 4-6 WEEKS WELLNESS Reason for Visit Arthritis of carpome tacarpal (CMC) joint of right thumb Breast cancer Elevated cholesterol Generalized anxiety disorder Impaired fasting glucose Leukopenia Primary hypertension Venous insufficiency (chronic) (peripheral) Wellness examination Additional Source Comments Reason for Visit (unrecogniz ed section and content) Reason Comments Knee Pain pt fell on ice about 30 minutes ago landing on left knee. presents with pain and unable to bend knee Reason Comments Breast Cancer Reason Comments Breast Cancer 3 week follow up Reason Comments Refill Request Reason Onset Date Comments Refill Request 01/07/2022 Reason Comments Breast Cancer 6 month follow up Reason Comments Results, Lab Vitamin D results Reason Onset Date Comments Refill Request 06/30/2022 Reason Comments Patient Question Reason Comments Pt yearly appointments/Dr Bagley to resume mammogram orders INFORMATION SOURCE (unrecogn ized section and content) DATE CREATED AUTHOR 08/08/2020 Gilma vazquez DATE CREATED AUTHOR AUTHOR'S ORGANIZ ATION 05/12/2022 [facility] DATE CREATED AUTHOR AUTHOR'S ORGANIZ ATION 02/06/2023 [facility] DATE CREATED AUTHOR AUTHOR'S ORGANIZ ATION 07/17/2023 [facility] DATE CREATED AUTHOR AUTHOR'S ORGANIZ ATION 01/24/2024 [facility] Source Comments (unrecognize d section and content) In the event this informatio n is protected by the Federal Confidentiality of Alcohol and Drug Abuse Patient Records regulations: The Federal rules restrict any use of the information to criminally investigate or prosecute any alcohol or drug abuse patient.[facility] HospitalIn the event this information is protected by the Federal Confidentiality of Alcohol and Drug Abuse Patient Records regulations: The Federal rules restrict any use of the information to criminally investigate or prosecute any alcohol or drug abuse patient.[facility] HospitalIn the event this information is protected by the Federal Confidentiality of Alcohol and Drug Abuse Patient Records regulations: The Federal rules restrict any use of the information to criminally investigate or prosecute any alcohol or drug abuse patient.[facility] HospitalIn the event this information is protected by the Federal Confidentiality of Alcohol and Drug Abuse Patient Records regulations: The Federal rules restrict any use of the information to criminally investigate or prosecute any alcohol or drug abuse patient.[facility] HospitalIn the event this information is protected by the Federal Confidentiality of Alcohol and Drug Abuse Patient Records regulations: The Federal rules restrict any use of the information to criminally investigate or prosecute any alcohol or drug abuse patient.[facility] HospitalIn the event this information is protected by the Federal Confidentiality of Alcohol and Drug Abuse Patient Records regulations: The Federal rules restrict any use of the information to criminally investigate or prosecute any alcohol or drug abuse patient.[facility] HospitalIn the event this information is protected by the Federal Confidentiality of Alcohol and Drug Abuse Patient Records regulations: The Federal rules restrict any use of the information to criminally investigate or prosecute any alcohol or drug abuse patient.[facility] HospitalIn the event this information is protected by the Federal Confidentiality of Alcohol and Drug Abuse Patient Records regulations: The Federal rules restrict any use of the information to criminally investigate or prosecute any alcohol or drug abuse patient.[facility] HospitalIn the event this information is protected by the Federal Confidentiality of Alcohol and Drug Abuse Patient Records regulations: The Federal rules restrict any use of the information to criminally investigate or prosecute any alcohol or drug abuse patient.[facility] HospitalIn the event this information is protected by the Federal Confidentiality of Alcohol and Drug Abuse Patient Records regulations: The Federal rules restrict any use of the information to criminally investigate or prosecute any alcohol or drug abuse patient.[facility] HospitalIn the event this information is protected by the Federal Confidentiality of Alcohol and Drug Abuse Patient Records regulations: The Federal rules restrict any use of the information to criminally investigate or prosecute any alcohol or drug abuse patient.[facility] HospitalIn the event this information is protected by the Federal Confidentiality of Alcohol and Drug Abuse Patient Records regulations: The Federal rules restrict any use of the information to criminally investigate or prosecute any alcohol or drug abuse patient.[facility] HospitalIn the event this information is protected by the Federal Confidentiality of Alcohol and Drug Abuse Patient Records regulations: The Federal rules restrict any use of the information to criminally investigate or prosecute any alcohol or drug abuse patient.[facility] Care Teams (unrecognized sec tion and content) Personnel Name: TATO BAGLEY DO Address: Address: [address] [place] [address] Name: Stacia Petersen MA Toppiece Chopper Relationship Specialty Start Date End Date Tato Bagley DO PCP - General Internal Medicine 12/15/13 Toppiece Chopper Relationship Specialty Start Date End Date Tato Bagley DO PCP - General Internal Medicine 12/15/13 Toppiece Chopper Relationship Specialty Start Date End Date Taya Tato Edward DO PCP - General Internal Medicine 12/15/13 Toppiece Chopper Relationship Specialty Start Date End Date Tato Bagley DO PCP - General Internal Medicine 12/15/13 Toppiece Chopper Relationship Specialty Start Date End Date Taya Tato Edward DO PCP - General Internal Medicine 12/15/13 Toppiece Chopper Relationship Specialty Start Date End Date Tato Bagley DO PCP - General Internal Medicine 12/15/13 Toppiece Chopper Relationship Specialty Start Date End Date Tato Bagley DO PCP - General Internal Medicine 12/15/13 Toppiece Chopper Relationship Specialty Start Date End Date Tato Bagley DO PCP - General Internal Medicine 12/15/13 Toppiece Chopper Relationship Specialty Start Date End Date Tato Bagley DO PCP - General Internal Medicine 12/15/13 Team Status: Active Member Role Status Dates Tato Bagley DO Primary Care Provider Active Team Status: Inactive Member Role Status Dates Tato Bagley DO Attending Provider Active Sta rt: May 17, 2023 End: May 17, 2023 Team Status: Inactive Member Role Status Dates Tato Bagley DO Primary Care Provider Active Start: July 16, 2023 End: July 16, 2023 Amberly Humphrey MD Attending Provider Active Start: July 16, 2023 End: July 16, 2023 Team Status: Active Member Role Status Dates Tato Bagley DO Primary Care Provider Active Start: July 16, 2023 Amberly Humphrey MD Attending Provider Active Start: July 16, 2023 Toppiece Chopper Relationship Specialty Start Date End Date Tato Bagley DO PCP - General Internal Medicine 12/15/13 Team Status: Inactive Member Role Status Dates Tato Bagley DO Primary Care Provider Active Start: August 27, 2023 End: August 27, 2023 Amberly Humphrey MD Attending Provider Active Start: August 27, 2023 End: August 27, 2023 Team Status: Active Member Role Status Dates Tato Bagley DO Primary Care Provide r, Attending Provider Active Start: November 09, 2023 Team Status: Inactive Member Role Status Dates Tato Bagley DO Primary Care Provide r, Attending Provider Active Start: November 15, 2023 End: November 15, 2023 Goals (unrecognized section and content) Goals may be documented in a n alternate section FOR RECORDS PERTAINING TO PATIENTS WHO ARE OR HAVE BEEN ENROLLED IN A CHEMICAL DEPENDENCY/SUBSTANCEABUSE PROGRAM, SOME INFORMATION MAY BE OMITTED. This clinical summary was aggregated from multiple sources. Caution should be exercised in using it in the provision of clinical care. This summary normalizes information from multiple sources, and as a consequence, information in this document may materially change the coding, format and clinical context of patient data. In addition, data may be omitted in some cases. CLINICAL DECISIONS SHOULD BE BASED ON THE PRIMARY CLINICAL RECORDS. [employer] provides no warranty or guarantee of the accuracy or completeness of information in this document.
[2024-03-27 10:39] LABS: Basophils Percent Auto 0.5 % (0.2-2.0); Eosinophils Absolute Auto 0.1 10^3/uL (0.0-0.7); Eosinophils Percent Auto 2.1 % (0.9-7.0); Hematocrit 43.5 % (36.0-48.0); Hemoglobin 14.5 g/dL (12.0-16.0); Immature Granulocytes Abs Auto 0.02 10^3/uL (0.00-0.03); Immature Granulocytes Pct Auto 0.5 % (0.0-0.5); Lymphocytes Absolute Auto 1.1 10^3/uL (1.2-3.8); Lymphocytes Percent Auto 28.1 % (20.5-60.0); Mean Corpuscular HGB Conc 33.3 g/dL (29.9-35.2); Mean Corpuscular Hemoglobin 28.5 pg (26.7-34.0); Mean Corpuscular Volume 85.5 fL (81.0-99.0); Monocytes Absolute Auto 0.4 10^3/uL (0.3-0.8); Monocytes Percent Auto 10.6 % (1.7-12.0); Neutrophils Absolute Auto 2.2 10^3/uL (1.4-6.5); Neutrophils Percent Auto 58.2 % (43.0-75.0); Platelet Count 197 10^3/uL (150-450); Red Blood Count 5.09 10^6/uL (4.20-5.40); Red Cell Distribution Width 11.8 % (11.0-15.0); White Blood Count 3.8 10^3/uL (4.0-11.0)
== END 2024-03-27 10:18 | disposition home or self-care (01) ==
LOC: LAB 10:18
PROVIDERS: PCP Internal Medicine; Visit Provider Internal Medicine
DX: D72.819 Decreased white blood cell count, unspecified (principal)
CPT/HCPCS: 36415; 85025

== ENCOUNTER 2024-11-28 08:38 | Outpatient (OUT) | payer OTHER, SELFPAY ==
--- OUTSIDE RECORDS SUMMARY | 2024-11-28 08:42 | XMS_ITS | CCD ---
Author Organization [facility] Care Team Providers Care Analytical Strategist Name Role Phone Tato Bagley Primary Care Provider [phone] CORRIE INGRAM Referring Unavailable TATO BAGLEY Primary [...] REQUEST, NONE LISTED Admitting Unavaila ble REQUEST, NONE LISTED Consulting Unavaila ble REQUEST, NONE LISTED Attending Unavaila ble BALL, DR GODWIN Primary Care Unavailable TAYA, DR GODWIN Consulting Unavailable BALL, DR GODWIN Attending Unavailable BALL, DR GODWIN Admitting Unavailable BALL, DR GODWIN Primary Care Unavailable Tato Bagley DO Primary Care Provider TATO BAGLEY Primary Care Unavailable RHIANNONAMEMILIEU, RAFFY Referring Unavailable SERGE, RAFFY Attending Unavailable TATO BAGLEY Primary Care Unavailable ABBYU, RAFFY Referring Unavailable TATO BAGLEY Primary Care Unavailable VAISHNAVI STEARNS Attending Unavailable GABRIELLALOU, RAFFY Referring Unavailable TATO BAGLEY Primary Care Unavailable ABBYU, RAFFY Referring Unavailable Tato Bagley Unavailable DO Tato Bagley Primary Care Provider MD Amberly Humphrey Attending Provider [phone] Tato Bagley DO Primary Care Provider Raffy Singleton Attending Unavailable Raffy Singleton Referring Unavailable TATO BAGLEY Consulting Unavailable Raffy Singleton Admitting Unavailable DO TATO BAGLEY Consulting Unavailable Tato Bagley DO Primary Care Provider [phone] Amberly Humphrey MD Attending Provider [phone] Amberly Humphrey Attending Unavailable Amberly Humphrey Admitting Unavailable Tato Bagley Primary Care Unavailable Allergies Allergy Classification Reported Allergen(s) Allergy Type Date of Onset Reaction(s) Facility (1 source) No Known Medication Allergies; Translations: [No Known Medication Allergies] Propensity to adverse reactions (disorder) [facility] Repository Medications Current Medications Medication Drug Class(es) Dates Sig (Normalized) Sig (Original) anastrozole 1 mg oral tablet (16 sources) Aromatase Inhibitor Start: 03-27-2019 End: 02-02-2022 take 1 tablet by mouth once daily anastrozole 1 mg Tab 1 mg = 1 tab(s), Oral, Daily, # 90 tab(s), Refills(s) 3, Pharmacy: [facility] Start Date: 03/27/19 Status: Ordered Comment on above: Take 1 tablet by sherif th once daily. Take 1 tablet by sherif th once daily atorvastatin 40 mg oral tablet (20 sources) HMG-CoA Reductase Inhibitor Start: 01-15-2024 Atorvastatin 40 mg tablet Active 0 .ROUTE .COMPLEX 90 January 15, 2024 4:30pm TAKE 1 TABLET DAILY IN THE EVENING Start: 12-26-2017 End: 01-15-2024 take 1 tablet by mouth once daily Atorvastatin 40 mg tablet Discontinued 40 MG PO Daily November 15, 2023 10:25am January 15, 2024 4:30pm Start: 12-26-2017 End: 11-15-2023 take 40 g by mouth once daily Atorvastatin Discontinue d 40 GM PO Daily December 26, 2017 12:00am November 15, 2023 10:25am Atorvastatin Kobe cium Not-Taking/PRN Comment on above: Take 40 mg by mouth once daily. benazepril hydrochloride 40 mg oral tablet (20 sources) Angiotensin Converting Enzyme Inhibitor Start: 08-02-202 4 take 1 tablet by mouth once daily Benazepril 40 mg tablet Active 40 MG PO Daily November 15, 2023 10:25am Start: 09-02-2023 End: 11-15-2023 take 1 tablet by mouth once daily Benazepril 40 mg tablet Discontinued 0 .ROUTE .COMPLEX 90 September 02, 2023 1:04pm November 15, 2023 10:25am Take 1 tablet by mouth once daily Start: 12-26-2017 End: 09-02-2023 take 1 tablet by mouth once daily Benazepril 40 mg tablet Discontinued 40 MG PO Daily December 26, 2017 12:00am September 02, 2023 1:04pm Comment on above: Take 40 mg by mouth once daily. Calcium (6 sources) Phosphate Binder, Calcium Start: 06-04-2019 Calcium 500+D Refill(s) 0 Start Date: 06/04/19 Status: Ordered calcium carbonate 1500 mg oral tablet (20 sources) Start: 11-15-2023 End: 11-15-2023 take 1 tablet by mouth twice daily Calcium Carbonate 600 mg calcium (1,500 mg) tablet Active 600 MG PO Twice daily November [...] sources) Vitamin D Start: 11-15-19 24 take 1 capsule by mouth once daily Cholecalciferol (Vitamin D3) 125 mcg (5,000 unit) capsule Active 125 MCG PO Daily November 15, [...] oral tablet (20 sources) Loop Diuretic Start: 03-31-2024 take 1 tablet by mouth once daily Furosemide 40 mg tablet Active 0 .ROUTE .COMPLEX 90 March 31, 2024 9:34am Take 1 tablet by mouth once daily Start: 12-26-2017 End: 03-31-2024 take 1 tablet by mouth once daily Furosemide 40 mg tablet Discontinued 40 MG PO Daily December 26, 2017 12:00am March 31, 2024 9:34am Comment on above: Take 40 mg by [...] link pravastatin sodium 40 mg oral tablet (6 sources) HMG-CoA Reductase Inhibitor Start: 024 take 1 tablet by mouth once daily Pravastatin 40 mg tablet Active 40 MG PO Daily November 15, 2023 12:00am sertraline 50 mg oral tablet (15 sources) Serotonin Reuptake Inhibitor Start: 023 End: 023 take 1 tablet by mouth once daily [...] Date Documented Da te Episodic/Chronic Anxiety disorders (12 sources) Mixed anxiety and depressive disorder; Translations: [Anxiety disorder, unspecified] Chronic Cancer of breast (20 sources) Malignant neoplasm of female breast; Translations: [Malignant neoplasm of unspecified site of right female breast] Resolved: 12-09-2018 Chronic Comment on above: s/p lumpectomy, radi ation Cancer of breast (2 sources) History of malignant neoplasm of breast; Translations: [Personal history of malignant neoplasm of breast] Episodic Diabetes mellitus with complications (3 sources) Type 2 diabetes mellitus; Translations: [Type 2 diabetes mellitus with hyperglycemia] Chronic Diabetes mellitus without complication (16 sources) Impaired fasting glycemia; Translations: [Impaired fasting glucose] 12-09-2018 Episodic Diseases of white blood cells (8 sources) Leukopenia; Translations: [Decreased white blood cell count, unspecified] 11-15-2023 Chronic Disorders of lipid metabolism (17 sources) Hyperlipidemia; Translations: [Hypercholesterolemia ] 12-09-2018 Chronic Essential hypertension (20 sources) Hypertensive disorder; Translations: [Essential (primary) hypertension] Onset: 12-21-2013 12-21-2013 Chronic Fracture of lower limb (3 sources) Closed fracture patella, comminuted (stellate) ; Translations: [Closed fracture of patella] Episodic Headache; including migraine (1 source) Headache; Translations: [Headaches] Episodic Osteoarthritis (17 sources) Primary arthrosis of first carpometacarpal joints, bilateral; Translations: [Bilateral primary osteoarthritis of first carpometacarpal joints] Onset: 07-28-2024 Chronic Other bone disease and musculoskeletal deformities (2 sources) Osteopenia; Translations: [Other specified disorders of bone density and structure, unspecified site] Episodic Other connective tissue disease (6 sources) Pain in thumb ; Translations: [Pain in right finger(s)] 07-15-2023 Episodic Other diseases of veins and lymphatics (6 sources) Peripheral venous insufficiency; Translations: [Venous insufficiency (chronic) (peripheral)] 11-14-2023 Episodic Other diseases of veins and lymphatics (5 sources) Venous insufficiency (chronic) (peripheral); Translations: [Venous (peripheral) insufficiency, unspecified] Episodic Other gastrointestinal disorders (6 sources) Stool DNA-based colorectal cancer screening positive; Translations: [Other fecal abnormalities] 03-27-2023 Episodic Comment on above: Problem List clean-u p per request of Phys. EHR Cmte Other nutritional; endocrine; and metabolic disorders (6 sources) Obesity 12-09-2018 Chronic Substance-related disorders (2 sources) Tobacco user; Translations: [Nicotine dependence, cigarettes, in remission] Chronic Past or Other Problems Problem Classification Problem Date Documented Date Episodic/Chronic Nonspecific chest pain (13 sources) Chest pain; [...] Test Name Value Interpretation Reference Range Facility X-ray reportOrdered By: Roberto Peck on 07-28-2024 Study report [facility] [place] [facility] [place] [address] XRay Report Signed Patient: Alyssa Valdez MR#: [id number] : 1960 Acct:[id number] Age/Sex: 63 / F ADM Date: 5 Loc: SOXD Room: Type: REG CLI Attending Dr: Amberly Humphrey MD Copies to: Amberly Humphrey MD~ Ordering Provider: Amberly Humphrey MD Date of Service: 07/28/24 XR/XR hand RT min 3V*: M18.11 - Unilateral primary osteoarthritis of first carpo... RIGHT HAND - 4 views REASON FOR EXAM: Right hand first CMC joint pain. COMPARISON: Right hand 07/16/2023 FINDINGS: No focal soft tissue abnormality. Moderate degenerative changes involving the CMC joint of the thumb. Mild degenerative changes of the IP joints. No acute bony process. No bony erosions. XR/XR hand RT min 3V* IMPRESSION: DEGENERATIVE CHANGES INVOLVING THE RIGHT HAND WITH MODERATE DEGENERATIVE CHANGESINVOLVING THE CMC JOINT OF THE THUMB. Impression dictated by: Bob Peck Jr., DYahirOYahir07/28/2024 4:29 PM Dictation Location: [place] [address] Transcribed By: [facility] 07/28/24 1629 Dictated By: Bob Peck Jr, DO 07/28/24 1628 Signed By: 07/28/24 1629 [facility] XR hand RT min 3V*on 025 XR hand RT min 3V* [facility] [place] [facility] [place] [address] XRay Report Signed Patient: Alyssa Valdez MR#: [id number] : 1960 Acct:[id number] Age/Sex: 63 / F ADM Date: 07/28/24 Loc: [facility] Room: Type: REG CLI Attending Dr: Amberly Humphrey MD Copies to: Amberly Humphrey MD Ordering Provider: Amberly Humphrey MD Date of Service: 07/28/24 XR/XR hand RT min 3V*: M18.11 - Unilateral primary osteoarthritis of first carpo... RIGHT HAND - 4 views REASON FOR EXAM: Right hand first CMC joint pain. COMPARISON: Right hand 07/16/2023 FINDINGS: No focal soft tissue abnormality. Moderate degenerative changes involving the CMC joint of the thumb. Mild degenerative changes of the IP joints. No acute bony process. No bony erosions. XR/XR hand RT min 3V* IMPRESSION: DEGENERATIVE CHANGES INVOLVING THE RIGHT HAND WITH MODERATE DEGENERATIVE CHANGES INVOLVING THE CMC JOINT OF THE THUMB. Impression dictated by: Bob Peck Jr., D.O.07/28/2024 4:29 PM Dictation Location: [place] [address] Transcribed By: [facility] 07/28/24 1629 Dictated By: Bob Peck Jr, DO 07/28/24 1628 Signed By: 07/28/24 1629 Normal [facility] Basophils Auto (Bld) [#/Vol] on 03-27-2024 Basophils (Bld) [#/Vol] Automated basophil count 0.0-0.1 [facility] Basophils/100 WBC Auto (Bld) on 03-27-2024 Basophils/100 WBC (Bld) Automated basophil % 0.2-2.0 [facility] Eosinophils/100 WBC Auto (Bl d)on 03-27-2024 Eosinophils/100 WBC (Bld) Automated eosinophil % 0.9-7.0 [facility] Erythrocyte distribution wid th Auto (RBC) [Ratio]on 03-27-2024 Erythrocyte distribution width (RBC) [Ratio] Erythrocyte distribution width [Ratio] by Automated count 11.0-15.0 [facility] Hematocrit Auto (Bld) [Volum e fraction]on 03-27-2024 Hematocrit (Bld) [Volume fraction] Hematocrit [Volume Fraction] of Blood by Automated count 36.0-48.0 [facility] Hemoglobin [Mass/volume] in Bloodon 03-27-2024 Hemoglobin (Bld) [Mass/Vol] Hemoglobin [Mass/volume] in Blood 12.0-16.0 [facility] Laboratory - Hematology and Cell countson 03-27-2024 Immature granulocytes/100 WBC (Bld) 0.5 % 0.0-0.5 [facility] Leukocytes [#/volume] correc diana for nucleated erythrocytes in Blood by Automated counon 03-27-2024 WBC corrected for nucl RBC Auto (Bld) [#/Vol] Leukocytes [#/volume] corrected for nucleated erythrocytes in Blood by Automated coun Low 4.0-11.0 [facility] Lymphocytes Auto (Bld) [#/Vo l]on 03-27-2024 Lymphocytes (Bld) [#/Vol] Lymphocytes [#/volume] in Blood by Automated count Low 1.2-3.8 [facility] Lymphocytes/100 WBC Auto (Bl d)on 03-27-2024 Lymphocytes/100 WBC (Bld) Lymphocytes/100 leukocytes in Blood by Automated count 20.5-60.0 [facility] MCH Auto (RBC) [Entitic mass ]on 03-27-2024 MCH (RBC) [Entitic mass] MCH [Entitic mass] by Automated count 26.7-34.0 [facility] MCHC Auto (RBC) [Mass/Vol]on 03-27-2024 MCHC (RBC) [Mass/Vol] MCHC [Mass/volume] by Automated count 29.9-35.2 [facility] MCV Auto (RBC) [Entitic vol] on 03-27-2024 MCV (RBC) [Entitic vol] MCV [Entitic volume] by Automated count 81.0-99.0 [facility] Monocytes Auto (Bld) [#/Vol] on 03-27-2024 Monocytes (Bld) [#/Vol] Automated blood monocyte count 0.3-0.8 [facility] Monocytes/100 WBC Auto (Bld) on 03-27-2024 Monocytes/100 WBC (Bld) Automated monocyte % 1.7-12.0 [facility] Neutrophils Auto (Bld) [#/Vo l]on 03-27-2024 Neutrophils (Bld) [#/Vol] Neutrophils [#/volume] in Blood by Automated count 1.4-6.5 [facility] Neutrophils/100 WBC Auto (Bl d)on 03-27-2024 Neutrophils/100 WBC (Bld) Automated neutrophil % 43.0-75.0 [facility] No Panel Informationon 03-27 Eosinophils # (Auto) 0.1 10 3/uL 0.0-0.7 [facility] Immature Granulocyte # (Auto) 0.02 10 3/uL 0.00-0.03 [facility] Platelet mean volume Auto (B ld) [Entitic vol]on 03-27-2024 Platelet mean volume (Bld) [Entitic vol] Platelet mean volume [Entitic volume] in Blood by Automated count 9.5-13.5 [facility] Platelets Auto (Bld) [#/Vol] on 03-27-2024 Platelets (Bld) [#/Vol] Platelets [#/volume] in Blood by Automated count 150-450 [facility] RBC Auto (Bld) [#/Vol]on RBC (Bld) [#/Vol] Erythrocytes [#/volume] in Blood by Automated count 4.20-5.40 [facility] MA Mamm Screen w/CAD if perf and [...] very important to your health. The current [employer] and National Comprehensive Cancer [...] Chilo Bacon M.D. Transcribed by: BERNADETTE Technologist: [facility] Assessment: BI-RADS Category 2-Benign finding Recommendation: Normal interval follow-up Normal [facility] Basophils Auto (Bld) [#/Vol] on 11-09-2023 Basophils (Bld) [#/Vol] 0.0 10 3/uL 0.0-0.1 [facility] Basophils/100 WBC Auto (Bld) on 11-09-2023 Basophils/100 WBC (Bld) 0.6 % 0.2-2.0 [facility] Cholesterol in LDL Calc [Mas s/Vol]on 11-09-2023 Cholesterol in LDL [Mass/Vol] 85.0 mg/dL [facility] Comment on above: <100 mg/dl [id number] 0-129 mg/dl NEAR OR ABOVE [id number] mg/dl BORDERLINE [id number] mg/dl HIGH>190 mg/dl VERY HIGH Cholesterol in VLDL Calc [Ma ss/Vol]on 11-09-2023 Cholesterol in VLDL [Mass/Vol] 10.0 mg/dL [facility] Eosinophils/100 WBC Auto (Bl d)on 11-09-2023 Eosinophils/100 WBC (Bld) 3.4 % 0.9-7.0 [facility] Erythrocyte distribution wid th Auto (RBC) [Ratio]on 11-09-2023 Erythrocyte distribution width (RBC) [Ratio] 11.9 % 11.0-15.0 [facility] Estimated glomerular filtrat ion rate (GFR) non- Americanon 11-09-2023 GFR/1.73 sq M.predicted among non-blacks MDRD (S/P/Bld) [Vol rate/Area] mL/min/{1.73_m2} >=60 [facility] Globulin Calc (S) [Mass/Vol] on 11-09-2023 Globulin (S) [Mass/Vol] 3.1 g/dL [facility] Glucose mean value [Mass/vol ume] in Blood Estimated from glycated hemoglobinon 11-09-2023 Average glucose Estimated from glycated hemoglobin (Bld) [Mass/Vol] 120 mg/dL [facility] Hematocrit Auto (Bld) [Volum e fraction]on 11-09-2023 Hematocrit (Bld) [Volume fraction] 39.9 % 36.0-48.0 [facility] Hemoglobin [Mass/volume] in Bloodon 11-09-2023 Hemoglobin (Bld) [Mass/Vol] 13.6 g/dL 12.0-16.0 [facility] Laboratory - Chemistry and C hemistry - challengeon 11-09-2023 Albumin [Mass/Vol] 4.1 g/dL 3.4-5.0 [facility] ALP [Catalytic activity/Vol] 98 U/L 46-116 [facility] ALT [Catalytic activity/Vol] 29 U/L 14-59 [facility] AST [Catalytic activity/Vol] 24 U/L 15-37 [facility] Bilirubin [Mass/Vol] 0.7 mg/dL 0.2-1.0 [facility] Calcium [Mass/Vol] 8.9 mg/dL 8.5-10.1 [facility] Chloride [Moles/Vol] 105 mmol/L 98-107 [facility] Cholesterol [Mass/Vol] 160 mg/dL <=200 [facility] Cholesterol in HDL [Mass/Vol] 65 mg/dL High 40-60 [facility] Comment on above: > or =60 mg/dl - LOW CARDIOVASCULAR RISK<40 mg/dl - HIGH CARDIOVASCULAR RISK CO2 [Moles/Vol] 28.0 mmol/L 21.0-32.0 [facility] Creatinine [Mass/Vol] 0.88 mg/dL 0.55-1.02 [facility] GFR/1.73 sq M.predicted MDRD (S/P/Bld) [Vol rate/Area] mL/min/{1.73_m2} >=60 [facility] Glucose [Mass/Vol] 124 mg/dL High 74-106 [facility] Potassium [Moles/Vol] 3.7 mmol/L 3.5-5.1 [facility] Protein [Mass/Vol] 7.2 g/dL 6.4-8.2 [facility] Sodium [Moles/Vol] 142 mmol/L 136-145 [facility] Triglyceride [Mass/Vol] 50 mg/dL <=150 [facility] Urea nitrogen [Mass/Vol] 17.0 mg/dL 7.0-18.0 [facility] Urea nitrogen/Creatinine [Mass ratio] 19.3 mg/mg [facility] Laboratory - Hematology and Cell countson 11-09-2023 HbA1c (Bld) [Mass fraction] 5.8 % 4.5-6.2 [facility] Comment on above: ADA RECOMMENDED LIMI T 4.0 - 6.0ADA THERAPEUTIC TARGET < 7.0ACTION SUGGESTED> 7.0 Immature granulocytes/100 WBC (Bld) 0.3 % 0.0-0.5 [facility] Leukocytes [#/volume] correc diana for nucleated erythrocytes in Blood by Automated counon 11-09-2023 WBC corrected for nucl RBC Auto (Bld) [#/Vol] 3.6 10 3/uL Low 4.0-11.0 [facility] Lymphocytes Auto (Bld) [#/Vo l]on 11-09-2023 Lymphocytes (Bld) [#/Vol] 1.0 10 3/uL Low 1.2-3.8 [facility] Lymphocytes/100 WBC Auto (Bl d)on 11-09-2023 Lymphocytes/100 WBC (Bld) 27.4 % 20.5-60.0 [facility] MCH Auto (RBC) [Entitic mass ]on 11-09-2023 MCH (RBC) [Entitic mass] 29.1 pg 26.7-34.0 [facility] MCHC Auto (RBC) [Mass/Vol]on 11-09-2023 MCHC (RBC) [Mass/Vol] 34.1 g/dL 29.9-35.2 [facility] MCV Auto (RBC) [Entitic vol] on 11-09-2023 MCV (RBC) [Entitic vol] 85.3 fL 81.0-99.0 [facility] Microalbumin [Mass/volume] i n Urineon 11-09-2023 Albumin DL <= 20 mg/L (U) [Mass/Vol] 3.0 mg/dL <=30.0 [facility] Monocytes Auto (Bld) [#/Vol] on 11-09-2023 Monocytes (Bld) [#/Vol] 0.4 10 3/uL 0.3-0.8 [facility] Monocytes/100 WBC Auto (Bld) on 11-09-2023 Monocytes/100 WBC (Bld) 11.2 % 1.7-12.0 [facility] Neutrophils Auto (Bld) [#/Vo l]on 11-09-2023 Neutrophils (Bld) [#/Vol] 2.1 10 3/uL 1.4-6.5 [facility] Neutrophils/100 WBC Auto (Bl d)on 11-09-2023 Neutrophils/100 WBC (Bld) 57.1 % 43.0-75.0 [facility] No Panel Informationon 11-08 Eosinophils # (Auto) 0.1 10 3/uL 0.0-0.7 [facility] Immature Granulocyte # (Auto) 0.01 10 3/uL 0.00-0.03 [facility] Platelet mean volume Auto (B ld) [Entitic vol]on 11-09-2023 Platelet mean volume (Bld) [Entitic vol] 9.8 fL 9.5-13.5 [facility] Platelets Auto (Bld) [#/Vol] on 11-09-2023 Platelets (Bld) [#/Vol] 171 10 3/uL 150-450 [facility] RBC Auto (Bld) [#/Vol]on RBC (Bld) [#/Vol] 4.68 10 6/uL 4.20-5.[address] [facility] Serum or plasma albumin/glob ulin mass ratioon 11-09-2023 Albumin/Globulin [Mass ratio] 1.3 {ratio} [facility] Serum or plasma anion gap de terminationon 11-09-2023 Anion gap [Moles/Vol] 12.7 mmol/L [facility] Serum or plasma total choles terol/high density lipoprotein (HDL) cholesterol mass lori 11-09-2023 Cholesterol.total/Cho lesterol in HDL [Mass ratio] 2.5 {ratio} [facility] Comment on above: 3.3 - 4.4 LOW RISK4. 4 - 7.1 AVERAGE RISK7.1 - 11.0 MODERATE RISK>11.0 HIGH RISK Physician Orderon 02-20-2023 Physician Order [id number]# 1.00TIFF Normal [facility] CNPNon 02-04-2023 CNPN Telephone (HE[place]AS[place]) ALYSSA VALDEZ ([id number]) 1960 F Date Time Provider Department 02/04/23 MARLIN YEE HEMASA During your visit today, we recorded the [...] Fully Assessed Reason for Visit: Patient Question [4217] Prescriptions as of 02/05/2023 - sertraline (ZOLOFT) [...] Encounter Status:Closed by MARLIN YEE on 02/05/23 [facility] CNOVSPon 02-01-2023 CNOVSP Visit (SP) Office ([place]) ALYSSA VALDEZ ([id number]) 1960 F Date Time Provider Department 02/01/23 9:45 AM RAFFY SINGLETON During your visit today, we recorded the following information about you: Temperature Pulse Respiration Blood pressure 97.9 degrees 61/minute 16/minute 149/79 Weight 72.2 kg Raffy Singleton MD 02/01/2023 10:04 AM Signed PATIENT NAME: Alyssa Valdez CLINIC NO.: [id number] ATTENDING PHYSICIAN: Raffy Singleton MD DATE OF [...] is 15 mm in size. ER and ID strongly positive, greater than 95%. Fish negative [...] CO2 (mmol/ (more content not included)... Normal [facility] Consultation Noteon 02-02-20 Consultation Note [id number]#1 .00TIFF Normal [facility] CNOVSPon 08-03-2022 CNOVSP Visit (SP) Office ([place]) ALYSSA VALDEZ ([id number]) 1960 F Date Time Provider Department 08/03/22 10:00 AM VAISHNAVI STEARNS During your visit today, we recorded the following information about you: Temperature Pulse Blood pressure Weight 97.6 degrees 56/minute 137/78 73 kg Height 1.62 m Vaishnavi Stearns PA-C 08/03/2022 10:16 AM Signed PATIENT NAME: Alyssa Valdez CLINIC NO.: [id number] ATTENDING PHYSICIAN: Raffy Singleton MD DATE OF [...] is 15 mm in size. ER and ID strongly positive, greater than 95%. Fish negative [...] biopsy December 2018. 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 She completed radiation therapy and is was on Arimidex until 06/2021 and she elected to stop secondary to tolerance issues. After a long discussion and discussing alternatives she elected not to pursue any hormonal therapy Dexa scan reviewed and declin (more content not included)... Normal [facility] NATTY - VITAMIN Don 05-11-2022 VIT D 25-OH 43.8 ng/mL Normal [facility] Comment on above: Performed By: #### D ATVITD #### [facility] [address] [place] [address] Dr. Luther Heath VIT D RANGES SEE BELOW Normal [facility] Comment on above: Result Comment: <20 ng/mL Vit D deficient 20 - <30 ng/mL Vit D insufficient 30 - 100 ng/mL Vit D sufficient >100 ng/mL Potential Toxicity Performed By: #### D ATVITD #### [facility] [address] [place] [address] Dr. Luther Heath CBC AUTO DIFFon 10-21-2021 BASO # 0.0 103/ul Normal 0.0-0.[address] [facility] Comment on above: Performed By: #### C BC #### [facility] [address] [place] [address] Dr. Luther Heath Basophils/100 WBC (Bld) 0.5 % Normal 0.2-2.[address] [facility] Comment on above: Performed By: #### C BC #### [facility] [address] [place] [address] Dr. Luther Heath EO # 0.1 103/ul Normal 0.0-0.[address] [facility] [facility] Comment on above: Performed By: #### C BC #### [facility] [address] [place] [address] Dr. Luther Heath Eosinophils/100 WBC (Bld) 2.6 % Normal 0.9-7.[address] [facility] Comment on above: Performed By: #### C BC #### [facility] [address] [place] [address] Dr. Luther Heath Erythrocyte distribution width (RBC) [Ratio] 12.0 % Normal 11.0-15.[address] [facility] Comment on above: Performed By: #### C BC #### [facility] [address] [place] [address] Dr. Luther Heath Hematocrit (Bld) [Volume fraction] 42.1 % Normal 36.0-48.[address] [facility] Comment on above: Performed By: #### C BC #### [facility] [address] [place] [address] Dr. Luther Heath Hemoglobin (Bld) [Mass/Vol] 13.9 g/dL Normal 12.0-16.[address] [facility] Comment on above: Performed By: #### C BC #### [facility] [address] [place] [address] Dr. Luther Heath IG # 0.01 10e3/ul Normal 0.00-0.[address] [facility] Comment on above: Performed By: #### C BC #### [facility] [address] [place] [address] Dr. Luther Heath IG % 0.3 % Normal 0.0-0.[address] [facility] Comment on above: Performed By: #### C BC #### [facility] [address] [place] [address] Dr. Luther Heath LYMPH # 1.0 103/ul Critically low 1.2-3.8 [facility] Comment on above: Performed By: #### C BC #### [facility] [address] [place] [address] Dr. Luther Heath Lymphocytes/100 WBC (Bld) 26.4 % Normal 20.5-60.[address] [facility] Comment on above: Performed By: #### C BC #### [facility] [address] [place] [address] Dr. Luther Heath MANUAL DIFF REQ NO Normal [facility] Comment on above: Performed By: #### C BC #### [facility] [address] [address] [address] Luther Heath MCH (RBC) [Entitic mass] 28.2 pg Normal 26.7-34.[address] [facility] Comment on above: Performed By: #### C BC #### [facility] [address] [place] [address] Dr. Luther Heath MCHC (RBC) [Mass/Vol] 33.0 g/dL Normal 29.9-35.[address] [facility] Comment on above: Performed By: #### C BC #### [facility] [address] [place] [address] Dr. Luther Heath MCV (RBC) [Entitic vol] 85.4 fL Normal 81.0-99.[address] [facility] Comment on above: Performed By: #### C BC #### [facility] [address] [place] [address] Dr. Luther Heath MONO # 0.5 103/ul Normal 0.3-0.[address] [facility] Comment on above: Performed By: #### C BC #### [facility] [address] [place] [address] Dr. Luther Heath Monocytes/100 WBC (Bld) 12.8 % Critically high 1.7-12.[address] [facility] Comment on above: Performed By: #### C BC #### [facility] [address] [place] [address] Dr. Luther Heath NEUT # 2.2 103/ul Normal 1.4-6.[address] [facility] Comment on above: Performed By: #### C BC #### [facility] [address] [place] [address] Dr. Luther Heath Neutrophils/100 WBC (Bld) 57.4 % Normal 43.0-75.0 [facility] Comment on above: Performed By: #### C BC #### [facility] [address] [place] [address] Dr. Luther Heath Platelet mean volume (Bld) [Entitic vol] 10.3 fL Normal 9.5-13.[address] [facility] Comment on above: Performed By: #### C BC #### [facility] [address] [place] [address] Dr. Luther Heath PLT 199 103/ul Normal 150-[address] [facility] Comment on above: Performed By: #### C BC #### [facility] [address] [place] [address] Dr. Luther Heath RBC 4.93 106/ul Normal 4.20-5.[address] [facility] Comment on above: Performed By: #### C BC #### [facility] [address] [place] [address] Dr. Luther Heath WBC 3.8 103/ul Critically low 4.0-11.0 [facility] Comment on above: Performed By: #### C BC #### [facility] [address] [place] [address] Dr. Luther Heath GLYCOHEMOGLOBIN A1Con 2021 ADA RECOMMENDATION SEE BELOW Normal [facility] Comment on above: Result Comment: ADA RECOMMENDED LIMIT 4.0 - 6.0 ADA THERAPEUTIC TARGET < 7.0 ACTION SUGGESTED > 7.0 Performed By: #### A 1C #### [facility] [address] [place] [address] Dr. Luther Heath Glucose [Mass/Vol] 120 mg/dL Normal [facility] Comment on above: Performed By: #### A 1C #### [facility] [address] [place] [address] Dr. Luther Heath HbA1c (Bld) [Mass fraction] 5.8 % Normal 4.5-6.[address] [facility] Comment on above: Performed By: #### A 1C #### [facility] [address] [place] [address] Dr. Luther Heath LIPID PROFILEon 10-21-2021 CHOL-HDL RATIO NORM SEE BELOW Normal [facility] Comment on above: Result Comment: 3.3 - 4.4 LOW RISK 4.4 - 7.1 AVERAGE RISK 7.1 - 11.0 MODERATE RISK >11.0 HIGH RISK Performed By: #### L IPID, BMP #### [facility] [address] [address] [address] Ltuher Heath Cholesterol [Mass/Vol] 159 mg/dL Normal <=[address] [facility] Comment on above: Performed By: #### L IPID, BMP #### [facility] [address] [address] [address] Luther Heath Cholesterol in HDL [Mass/Vol] 65 mg/dL Critically high 40-60 [facility] Comment on above: Performed By: #### L IPID, BMP #### [facility] [address] [address] [address] Luther Heath Cholesterol in LDL [Mass/Vol] 83.8 mg/dL Normal [facility] Comment on above: Performed By: #### L IPID, BMP #### [facility] [address] [address] [address] Luther Heath Cholesterol.total/Cho lesterol in HDL [Mass ratio] 2.4 {ratio} Normal [facility] Comment on above: Performed By: #### L IPID, BMP #### [facility] [address] [address] [address] Luther Heath HDL NORMAL > or = 60 mg/dl - LO W CARDIOVASCULAR RISK <40 mg/dl - HIGH CARDIOVASCULAR RISK Normal [facility] Comment on above: Performed By: #### L IPID, BMP #### [facility] [address] [address] [address] Luther Heath LDL CALC NORMAL SEE BELOW Normal [facility] Comment on above: Result Comment: <100 mg/dl OPTIMAL 100 - 129 mg/dl NEAR OR ABOVE OPTIMAL 130 - 159 mg/dl BORDERLINE HIGH 160 - 189 mg/dl HIGH >190 mg/dl VERY HIGH Performed By: #### L IPID, BMP #### [facility] [address] [address] [address] Luther Heath Triglyceride [Mass/Vol] 51 mg/dL Normal <=[address] [facility] Comment on above: Performed By: #### L IPID, BMP #### [facility] [address] [address] [address] Luther Heath VLDL CALC 10.2 mg/dL Normal [facility] Comment on above: Performed By: #### L IPID, BMP #### [facility] [address] [place] [address] Dr. Luther Heath PROF CHEM 8 (BAS METB)on Anion gap [Moles/Vol] 12.3 mmol/L Normal [facility] Comment on above: Performed By: #### L IPID, BMP #### [facility] [address] [place] [address] Dr. Luther Heath Calcium [Mass/Vol] 9.1 mg/dL Normal 8.5-10.1 [facility] Comment on above: Performed By: #### L IPID, BMP #### [facility] [address] [place] [address] Dr. Luther Heath Chloride [Moles/Vol] 104 mmol/L Normal 98-[address] [facility] Comment on above: Performed By: #### L IPID, BMP #### [facility] [address] [place] [address] Dr. Luther Heath CO2 [Moles/Vol] 27.6 mmol/L Normal 21.0-32.0 [facility] Comment on above: Performed By: #### L IPID, BMP #### [facility] [address] [place] [address] Dr. Luther Heath Creatinine [Mass/Vol] 0.92 mg/dL Normal 0.55-1.[address] [facility] Comment on above: Performed By: #### L IPID, BMP #### [facility] [address] [place] [address] Dr. Luther Heath EGFR-AF GUINEAN >60 Normal >=60 [facility] Comment on above: Performed By: #### L IPID, BMP #### [facility] [address] [place] [address] Dr. Luther Heath EGFR-NON AF GUINEAN >60 Normal >=[address] [facility] Comment on above: Performed By: #### L IPID, BMP #### [facility] [address] [place] [address] Dr. Luther Heath Glucose [Mass/Vol] 136 mg/dL Critically high 74-106 T [facility] Comment on above: Performed By: #### L IPID, BMP #### [facility] [address] [place] [address] Dr. Luther Heath Potassium [Moles/Vol] 3.9 mmol/L Normal 3.5-5.[address] [facility] Comment on above: Performed By: #### L IPID, BMP #### [facility] [address] [place] [address] Dr. Luther Heath Sodium [Moles/Vol] 140 mmol/L Normal 136-145 [facility] Comment on above: Performed By: #### L IPID, BMP #### [facility] [address] [place] [address] Dr. Luther Heath Urea nitrogen [Mass/Vol] 17.0 mg/dL Normal 7.0-18.[address] [facility] Comment on above: Performed By: #### L IPID, BMP #### [facility] [address] [place] [address] Dr. Luther Heath Urea nitrogen/Creatinine [Mass ratio] 18.5 mg/mg Normal [facility] Comment on above: Performed By: #### L IPID, BMP #### [facility] [address] [place] [address] Dr. Luther Heath VITAMIN D 25 OHon 10-21-2021 VIT D 25-OH 38.7 ng/mL [facility] Comment on above: Performed By: #### V ITAD #### [facility] [address] [place] [address] Dr. Luther Heath VIT D RANGES SEE BELOW Normal [facility] Comment on above: Result Comment: <20 ng/mL Vit D deficient 20 - <30 ng/mL Vit D insufficient 30 - 100 ng/mL Vit D sufficient >100 ng/mL Potential Toxicity Performed By: #### V ITAD #### [facility] [address] [place] [address] Dr. Luther Heath CHEMISTRYOrdered By: SYSTEM SYSTEM on 07-25-2021 Creatinine [Mass/Vol] 0.7 mg/dL Normal 0.5 - 1.3 mg/dL [facility] [place] Remisol GFR/1.73 sq M.predicted among blacks MDRD (S/P/Bld) [Vol rate/Area] mL/min/1.73 m2 Normal >=59mL/min/1.7 3 m2 [facility] [place] Chem S GFR/1.73 sq M.predicted among non-blacks MDRD (S/P/Bld) [Vol rate/Area] mL/min/1.73 m2 Normal >=59mL/min/1.7 3 m2 [facility] [place] Chem S XR KNEE LEFT (1-2 VIEWS)on [...] Mayers Jr., MD 08/05/20 Final result Normal [facility] XR KNEE LEFT (1-2 VIEWS)on 0 [...] Mayers Jr., MD 07/08/20 Final result Normal [facility] XR KNEE LEFT (1-2 VIEWS)on 0 [...] Mayers Jr., MD 06/10/20 Final result Normal [facility] No significant interval change in the minimally displaced transverse oriented fracture of the inferior patella. Continued slow healing. [employer] Phone: EXAM: XR KNEE LEFT (1-2 VIEWS) HISTORY: S82.042A Followup patella fracture. COMPARISON: Left knee 06/03/2020. TECHNIQUE: 2 views left knee. FINDINGS: Similar alignment of the minimally displaced transversely oriented fracture through the inferior patella with distraction by less than 2 mm. No new fracture is identified. Small amount of new bone continues to form. No joint effusion. [employer] Phone: John, pn Incoming Radiant Results From [employer] - 06/10/2020 7:50 PM EST EXAM: XR [...] of the inferior patella. Continued slow healing. [employer] Phone: XR KNEE LEFT (1-2 VIEWS)on 0 [...] Joe Quinn DO 06/04/20 Final result Normal [facility] No significant interval change in the minimally displaced transverse oriented fracture of the inferior patella. [employer] Phone: EXAM: XR KNEE LEFT (1-2 VIEWS) REASON FOR EXAM: [id number] TECHNIQUE: Frontal and lateral nonweightbearing views of the left knee. COMPARISON: Left knee radiographs dated 05/22/2020. FINDINGS: Similar alignment of the minimally displaced transversely oriented fracture through the inferior patella with distraction by less than 2 mm. No new fracture is identified. No aggressive osseous lesions or bony demineralization. No joint effusion. [employer] Phone: John, pn Incoming Radiant Results From [employer] - 06/04/2020 11:28 AM EST EXAM: XR [...] transverse oriented fracture of the inferior patella. [employer] Phone: XR KNEE LEFT (MIN 4 VIEWS)on [...] Jn Allen MD 05/22/20 Final result Normal [facility] FINDINGS/IMPRESSION: Acute comminuted minimally displaced fracture involving the inferior patella best seen on the lateral view. Prominent adjacent soft tissue swelling in the anterior knee. Bones appear osteopenic. No dislocation. [place] IMAGES REVIEWED: XR KNEE LEFT (MIN 4 VIEWS) COMPARISON: None available. CLINICAL INDICATION: Fall, pain. [place], [place] John, M[facility] Incoming Radiant Results From [employer] - 05/22/2020 5:00 PM EST IMAGES REVIEWED: XR KNEE LEFT (MIN 4 VIEWS) COMPARISON: None available. CLINICAL INDICATION: Fall, pain. IMPRESSION: FINDINGS/IMPRESSION: Acute comminuted minimally displaced fracture involving the inferior patella best seen on the lateral view. Prominent adjacent soft tissue swelling in the anterior knee. Bones appear osteopenic. No dislocation. [place], [place] Vital Signs Date Time Vital Sign Value Performing Clinician Facility 07-28-2024 13:20-0400 Body height 162.56 cm Tato Ball DO Work Phone: [facility] 07-28-2024 13:20-0400 Body mass index (BMI) [Ratio] 27.6 kg/m2 Tato Ball DO Work Phone: [facility] 07-28-2024 13:20-0400 Body weight 73.02 kg Tato Ball DO Work Phone: [facility] 07-28-2024 13:20-0400 Diastolic blood pressure 93 mm[Hg] Tato Ball DO Work Phone: [facility] 07-28-2024 13:20-0400 Heart rate 70 /min Tato Ball DO Work Phone: [facility] 07-28-2024 13:20-0400 Systolic blood pressure 146 mm[Hg] Tato Ball DO Work Phone: [facility] 05-22-2024 10:52-0500 Body height 162.56 cm [facility] 05-22-2024 10:52-0500 Body mass index (BMI) [Ratio] 29 kg/m2 [facility] 05-22-2024 10:52-0500 Body weight 76.77 kg [facility] 05-22-2024 10:52-0500 Diastolic blood pressure 80 mm[Hg] [facility] 05-22-2024 10:52-0500 Heart rate 68 /min [facility] 05-22-2024 10:52-0500 Respiratory rate 12 /min [facility] 05-22-2024 10:52-0500 Systolic blood pressure 130 mm[Hg] [facility] 11-15-2023 10:16-0400 Body height 162.56 cm [facility] 11-15-2023 10:16-0400 Body mass index (BMI) [Ratio] 28.2 kg/m2 [facility] 11-15-2023 10:16-0400 Body weight 74.55 kg [facility] 11-15-2023 10:16-0400 Diastolic blood pressure 84 mm[Hg] [facility] 11-15-2023 10:16-0400 Heart rate 75 /min [facility] 11-15-2023 10:16-0400 Respiratory rate 12 /min [facility] 11-15-2023 10:16-0400 Systolic blood pressure 123 mm[Hg] [facility] 05-17-2023 10:30-0500 Body height 162.56 cm Tato Ball Other [facility] 05-17-2023 10:30-0500 Body mass index (BMI) [Ratio] 27.91 kg/m2 Tato Ball Other [facility] [employer] Other 05-17-2023 10:30-0500 Body weight 73.76 kg Tato Ball Other [employer] [facility] [employer] Other 05-17-2023 10:30-0500 Body weight 73.75 kg DO Tato Ball Work Phone: [facility] 05-17-2023 10:30-0500 Diastolic blood pressure 83 mm[Hg] Tato Ball Other [facility] 05-17-2023 10:30-0500 Respiratory rate 12 /min Tato Ball Other [facility] [employer] Other 05-17-2023 10:30-0500 Systolic blood pressure 138 mm[Hg] Tato Ball Other [facility] 02-01-2023 09:39-0400 Body temperature 97.9 [degF] Raffy Singleton MD Work Phone: [facility] 02-01-2023 09:39-0400 Body weight 72.21 kg Raffy Singleton MD Work Phone: [facility] 02-01-2023 09:39-0400 Diastolic blood pressure 79 mm[Hg] Raffy Singleton MD Work Phone: [facility] 02-01-2023 09:39-0400 Heart rate 61 /min Raffy Singleton MD Work Phone: [facility] 02-01-2023 09:39-0400 Respiratory rate 16 /min Raffy Singleton MD Work Phone: [facility] 02-01-2023 09:39-0400 SaO2% (BldA) [Mass fraction] 100 % Raffy Singleton MD Work Phone: [facility] 02-01-2023 09:39-0400 Systolic blood pressure 149 mm[Hg] Raffy Singleton MD Work Phone: [facility] 08-03-2022 09:17-0400 Body height 162 cm Vaishanvi Jinny PA-C Work Phone: [facility] 08-03-2022 09:17-0400 Body temperature 97.59 [degF] Vaishnavi Jinny PA-C Work Phone: [facility] 08-03-2022 09:17-0400 Body weight 73.03 kg Vaishnavi Jinny PA-C Work Phone: [facility] 08-03-2022 09:17-0400 Diastolic blood pressure 78 mm[Hg] Vaishnavi Jinny PA-C Work Phone: [facility] 08-03-2022 09:17-0400 Heart rate 56 /min Vaishnvai Jinny PA-C Work Phone: [facility] 08-03-2022 09:17-0400 SaO2% (BldA) [Mass fraction] 100 % Vaishnavi Stearns PA-C Work Phone: [facility] 08-03-2022 09:17-0400 Systolic blood pressure 137 mm[Hg] Vaishnavi Jinny PA-C Work Phone: [facility] 02-02-2022 09:27-0400 Body height 162 cm Raffy Singleton MD Work Phone: [facility] 02-02-2022 09:27-0400 Body temperature 98.91 [degF] Raffy Singleton MD Work Phone: [facility] 02-02-2022 09:27-0400 Body weight 73.48 kg Raffy Singleton MD Work Phone: [facility] 02-02-2022 09:27-0400 Diastolic blood pressure 77 mm[Hg] Raffy Singleton MD Work Phone: [facility] 02-02-2022 09:27-0400 Heart rate 60 /min Raffy Singleton MD Work Phone: [facility] 02-02-2022 09:27-0400 Respiratory rate 16 /min Raffy Singleton MD Work Phone: [facility] 02-02-2022 09:27-0400 SaO2% (BldA) [Mass fraction] 99 % Raffy Singleton MD Work Phone: [facility] 02-02-2022 09:27-0400 Systolic blood pressure 147 mm[Hg] Raffy Singleton MD Work Phone: [facility] 08-04-2021 15:08-0400 Body height 162 cm Raffy Singleton MD Work Phone: [facility] 08-04-2021 15:08-0400 Body temperature 98.01 [degF] Raffy Singleton MD Work Phone: [facility] 08-04-2021 15:08-0400 Body weight 75.84 kg Raffy Singleton MD Work Phone: [facility] 08-04-2021 15:08-0400 Diastolic blood pressure 76 mm[Hg] Raffy Singleton MD Work Phone: [facility] 08-04-2021 15:08-0400 Heart rate 79 /min Raffy Singleton MD Work Phone: [facility] 08-04-2021 15:08-0400 Respiratory rate 16 /min Raffy Singleton MD Work Phone: [facility] 08-04-2021 15:08-0400 SaO2% (BldA) [Mass fraction] 98 % Raffy Singleton MD Work Phone: [facility] 08-04-2021 15:08-0400 Systolic blood pressure 137 mm[Hg] Raffy Singleton MD Work Phone: [facility] 07-12-2021 10:44-0400 Body height 162 cm Vaishnavi Jinny PA-C Work Phone: [facility] 07-12-2021 10:44-0400 Body temperature 97.59 [degF] Vaishnavi Jinny PA-C Work Phone: [facility] 07-12-2021 10:44-0400 Body weight 76.2 kg Vaishnavi Jinny PA-C Work Phone: [facility] 07-12-2021 10:44-0400 Diastolic blood pressure 68 mm[Hg] Vaishnavi Jinny PA-C Work Phone: [facility] 07-12-2021 10:44-0400 Heart rate 61 /min Vaishnavi Jinny PA-C Work Phone: [facility] 07-12-2021 10:44-0400 Respiratory rate 16 /min Vaishnavi Jinny PA-C Work Phone: [facility] 07-12-2021 10:44-0400 SaO2% (BldA) [Mass fraction] 99 % Vaishnavi Stearns PA-C Work Phone: [facility] 07-12-2021 10:44-0400 Systolic blood pressure 150 mm[Hg] Vaishnavi Stearns PA-C Work Phone: [facility] 05-22-2020 15:59-0500 Body Temperature 98.4 [degF] [facility] [employer] [place] [place] 05-22-2020 15:59-0500 BP Diastolic 62 mm[Hg] [facility] [employer] [place] [place] 05-22-2020 15:59-0500 BP Systolic 157 mm[Hg] [facility] [employer] [place] [facility] 05-22-2020 15:59-0500 Pulse (Heart Rate) 83 /min [facility] [employer] [facility] [place] 05-22-2020 15:59-0500 Pulse Oximetry 100 % [facility] [employer] [place] [facility] [place] 05-22-2020 15:59-0500 Respiratory Rate 18 /min [facility] Encounters Encounter Date Encounter Type Care Provider Facility Start: 07-28-2024 End: 07-28-2024 ambulatory Tato Ball DO Work Phone: [facility] Work Phone: Start: 07-28-2024 End: 07-28-2024 Patient encounter procedure Tato Ball DO Work Phone: [facility] Work Phone: Start: 07-28-2024 End: 07-28-2024 Patient encounter procedure Tato Ball DO Work Phone: [facility] Start: 07-28-2024 End: 07-28-2024 ambulatory Tato Ball DO Work Phone: [facility] Work Phone: Start: 05-22-2024 End: 05-22-2024 ambulatory [facility] Work Phone: Start: 05-22-2024 End: 05-22-2024 Patient encounter procedure [facility] Work Phone: Start: 03-27-2024 Non-patient / Non-visit [facility] Work Phone: Start: 01-20-2024 End: 01-20-2024 ambulatory [facility] Facility:[facility] [place] Start: 01-20-2024 End: 01-20-2024 Patient encounter procedure Raffy [facility] Start: 11-15-2023 Telephone encounter Tato Bagley [facility] Start: 11-15-2023 End: 11-15-2023 ambulatory [facility] Work Phone: Start: 11-15-2023 End: 11-15-2023 Encounter for general adult medical examination without abnormal findings [facility] Start: 11-15-2023 End: 11-15-2023 Patient encounter procedure [facility] Work Phone: Start: 11-09-2023 Non-patient / Non-visit [facility] Work Phone: Start: 11-08-2023 Telephone encounter Marlin Cuenca Hematology/Oncology Comment on above: Pt yearly appointmen ubaldo/Dr Bagley to resume mammogram orders Start: 08-27-2023 End: 08-27-2023 [facility] [facility] Work Phone: Start: 07-16-2023 End: 07-16-2023 ambulatory DO Tato Bagley Work Phone: [facility] Work Phone: Start: 07-16-2023 End: 07-16-2023 Patient encounter procedure DO Tato Bagley Work Phone: [facility] Work Phone: Start: 05-17-2023 End: 05-17-2023 ambulatory Tato Bagley Other [facility] Outline App Other Start: 05-17-2023 Office outpatient vi sit 25 minutes Tato Bagley CHARIS [facility] Start: 05-17-2023 End: 05-17-2023 Patient encounter procedure DO Tato Bagley Work Phone: [facility]- Start: 02-04-2023 Telephone encounter Marlin Cuenca Hematology/Oncology Comment on above: Patient Question Start: 02-01-2023 End: 02-01-2023 ambulatory TATO BAGLEY Facility:[facility] Start: 02-01-2023 End: 02-01-2023 ambulatory Raffy Singleton MD Work Phone: Hematology/Oncology Comment on above: Encounter for screen ing for malignant neoplasm of breast, unspecified screening modality (Primary Dx); History of breast cancer in female Start: 02-01-2023 End: 02-01-2023 Patient encounter procedure Raffy Singleton MD Work Phone: [facility] Start: 01-04-2023 End: 01-04-2023 Patient encounter procedure Vaishnavi Stearns [facility] Start: 11-19-2022 Refill Raffy Singleton MD [...] End: 07-31-2022 Patient encounter procedure Raffy Singleton [facility] Start: 07-25-2022 End: 07-25-2022 Patient encounter procedure Larisa Goddard [facility] Start: 06-30-2022 Refill Raffy Singleton MD Work Phone: Hematology/Oncology Comment on above: Refill Request Start: 05-11-2022 End: 05-12-[address] ADOLFO BOWMAN REQUEST Facility:[facility] Start: 02-05-2022 Telephone encounter Eliane Kapoor RN Work Phone: Hematology/Oncology Comment on above: Results, Lab (Vitami n D results) Start: 02-02-2022 End: 02-02-2022 ambulatory Raffy Singleton MD Work Phone: Hematology/Oncology Comment on above: Malignant neoplasm o f right breast in female, estrogen receptor positive, unspecified site of breast (HCC) (Primary Dx) Start: 02-02-2022 End: 02-02-2022 Patient encounter procedure Raffy Singleton MD Work Phone: [place] Start: 01-07-2022 Refill Raffy Singleton MD Work Phone: Hematology/Oncology Comment on above: Refill Request Start: 01-03-2022 End: 01-03-2022 Patient encounter procedure Raffy Singleton [facility] Start: 10-25-2021 Encounter for genera l adult medical examination without abnormal findings DR TATO BAGLEY [facility] Start: 10-21-2021 End: 10-22-[address] TATO [...] End: 07-25-2021 Patient encounter procedure Vaishnavi Stearns [facility] Start: 07-12-2021 End: 07-12-2021 ambulatory Vaishnavi AGUAYOC Work Phone: Hematology/Oncology Comment on above: Malignant neoplasm o f right breast in female, estrogen receptor positive, unspecified site of breast (HCC) (Primary Dx); Osteopenia, unspecified location; Anxiety and depression; Headaches Start: 07-12-2021 End: 07-12-2021 Patient encounter procedure Vaishnavi LOPEZ-C Work Phone: [facility] Start: 08-05-2020 End: 08-08-2020 [facility] Start: 08-05-2020 End: 08-08-2020 ambulatory CORRIE Munson [facility] Start: 08-05-2020 End: 08-07-2020 Subsequent hospital visit by physician Tato Bagley DO Work Phone: [facility] Start: 07-08-2020 End: 07-11-2020 ambulatory CORRIE Munson [facility] Start: 07-08-2020 End: 07-11-2020 ambulatory CORRIE Munson [facility] Start: 07-08-2020 End: 07-10-2020 [facility] Start: 06-10-2020 End: 06-13-2020 [facility] Start: 06-10-2020 End: 06-13-2020 [facility] Start: 06-10-2020 End: 06-12-2020 Subsequent hospital visit by physician Jacquelin Obando Rad [address] [place] [address] Radiology Comment on above: Closed displaced com minuted fracture of left patella, initial encounter Start: 06-10-2020 End: 06-12-2020 Subsequent hospital visit by physician Tato [facility] Radiology Start: 06-03-2020 End: 06-06-2020 ambulatory CORRIE C [facility] Start: 06-03-2020 End: 06-05-2020 Subsequent hospital visit by physician Jacquelin Additional Xray At [facility] Radiology Comment on above: Other closed fractur e of left patella, initial encounter Start: 06-03-2020 End: 06-06-2020 ambulatory CORRIE C [facility] Start: 06-03-2020 End: 06-05-2020 Subsequent hospital visit by physician Tato Bagley [facility] Radiology Start: 05-22-2020 End: 05-22-2020 Emergency department patient visit [facility] Start: 05-22-2020 End: 05-22-2020 Emergency department patient visit Ina Stanleyv Work Phone: [facility] ED Comment on above: Closed nondisplaced comminuted fracture of left patella, initial encounter (Primary Dx) Procedures Date Procedure Procedure Detail Performing Clinician Start: 07-28-2024 Plain X-ray of right hand Tato Ball DO Work Phone: Start: 07-16-2023 Plain X-ray of right hand DO Tato Ball Work Phone: Start: 07-11-2021 Adult depression scr eening assessment Vaishnavi Stearns PA-C Work Phone: Start: 06-10-2020 Radiologic examinati on knee 1/2 views Corrie Ingram Work Phone: Start: 06-03-2020 Radiologic examinati on knee 1/2 views Corrie Ingram Work Phone: Start: 05-22-2020 Radiologic exam knee complete 4/more views Ina Lr Work Phone: Start: 12-15-2017 Colonoscopy Vaishnavi rodriges Start: 03-15-2010 Repair of ankle Vaishnavi reddy Comment on above: LEFT ANKLE Start: 04-15-2000 Total abdominal hysterectomy with bilateral salpingo-oophorectomy Vaishnavi Stearns Biopsy of breast Vaishnavi Bermeo r section Vaishnavi Bermeo r End: 11-02-2021 Depression screening Tato Bagley Other Ganglion cyst of rig ht wrist (disorder) Vaishnavi Stearns Ganglion cyst of rig ht wrist (disorder) Raffy Singleton Plan of Treatment Date Care Activity Detail Author Start: 02-02-2025 DIABETES SCREEN DIABETES SCREEN [facility] Start: 02-02-2025 Diabetes Screening Diabetes Screenin g [facility] Start: 08-04-2024 DIABETES SCREEN DIABETES SCREEN [facility] Start: 07-28-2024 Plain X-ray of right hand XR hand RT min 3V* [facility] Start: 07-28-2024 XR Hand - right GE 3 Views [facility] Start: 02-02-2024 End: 05-03-2024 CBC W Auto Differential panel - Blood CBC + DIFF Lab Routine History of breast cancer in female Expected: 02/02/2024 (Approximate), Expires: 05/03/2024 [facility] Work Phone: Comment on above: Expected: 02/02/2024 (Approximate), Expires: 05/03/2024 Start: 02-02-2024 End: 05-03-2024 Comprehensive metabolic 2000 panel - Serum or Plasma COMP METABOLIC PANEL Lab Routine History of breast cancer in female Expected: 02/02/2024 (Approximate), Expires: 05/03/2024 [facility] Work Phone: Comment on above: Expected: 02/02/2024 (Approximate), Expires: 05/03/2024 Start: 02-02-2024 End: 03-02-2024 AMELIA SCREENING W MIGUEL AMELIA SCREENING W MIGUEL Radiology Routine Encounter for screening for malignant neoplasm of breast, unspecified screening modality Expected: 02/02/2024 (Approximate), Expires: 03/02/2024 [facility] Work Phone: Comment on above: Expected: 02/02/2024 (Approximate), Expires: 03/02/2024 Start: 12-15-2023 Influenza vaccination Influenza Vacc ine (#1) [facility] Start: 07-16-2023 Plain X-ray of right hand XR hand RT min 3V* [facility] Start: 07-16-2023 XR Hand - right GE 3 Views [facility] Start: 12-14-2022 Influenza vaccination INFLUENZA (#1) [facility] Start: 08-03-2022 End: 03-04-2023 Diagnostic mammography computer-aided detcj uni [facility] DIAGNOSTIC RT Radiology Routine Malignant neoplasm of right breast in female, estrogen receptor positive, unspecified site of breast (HCC) Expected: 08/03/2022, Expires: 03/04/2023 [facility] Work Phone: Comment on above: Expected: 08/03/2022 , Expires: 03/04/2023 Start: 07-11-2022 Adult depression screening assessment DEPRESSION SCREENING [facility] Start: 04-15-2022 DEPRESSION ASSESSMENT DEPRESSION ASS ESSMENT [facility] Start: 02-03-2022 End: 04-05-2022 CBC W Auto Differential panel - Blood CBC + DIFF Lab Routine Malignant neoplasm of right breast in female, estrogen receptor positive, unspecified site of breast (HCC) Expected: 02/03/2022 (Approximate), Expires: 04/05/2022 [facility] Work Phone: Comment on above: Expected: 02/03/2022 (Approximate), Expires: 04/05/2022 Start: 02-03-2022 End: 04-05-2022 Comprehensive metabolic 2000 panel - Serum or Plasma COMP METABOLIC PANEL Lab Routine Malignant neoplasm of right breast in female, estrogen receptor positive, unspecified site of breast (HCC) Expected: 02/03/2022 (Approximate), Expires: 04/05/2022 [facility] Work Phone: Comment on above: Expected: 02/03/2022 (Approximate), Expires: 04/05/2022 Start: 02-03-2022 End: 04-05-2022 VITAMIN D 25 HYDROXY VITAMIN D 25 HYDROXY Lab Routine Malignant neoplasm of right breast in female, estrogen receptor positive, unspecified site of breast (HCC) Expected: 02/03/2022 (Approximate), Expires: 04/05/2022 [facility] Work Phone: Comment on above: Expected: 02/03/2022 (Approximate), Expires: 04/05/2022 Start: 01-04-2022 End: 09-03-2022 Diagnostic mammography computer-aided detcj bi [facility] DIAGNOSTIC BILAT Radiology Routine Malignant neoplasm of right breast in female, estrogen receptor positive, unspecified site of breast (HCC) Expected: 01/04/2022, Expires: 09/03/2022 [facility] Work Phone: Comment on above: Expected: 01/04/2022 , Expires: 09/03/2022 Start: 12-14-2021 Influenza vaccination INFLUENZA (#1) [facility] Start: 11-03-2021 COVID-19 VACCINE (4 - Booster for Donna series) COVID-19 VACCINE (4 - Booster for Donna series) [facility] Start: 04-28-2021 COVID-19 VACCINE (3 - Booster for Donna series) COVID-19 VACCINE (3 - Booster for Donna series) [facility] Start: 04-15-2021 DEPRESSION ASSESSMENT DEPRESSION ASS ESSMENT [facility] Start: 12-14-2020 Influenza vaccination Flu vacc ine (Season Ended) [employer] Work Phone: Start: 12-15-2019 Influenza vaccination [facility] (# 1[facility] [place] [place] Start: 2019 RSV Vaccine (1 - 1-d ose 60+ series) RSV Vaccine (1 - 1-dose 60+ series) [facility] Start: 10-26-2017 Urine microalbumin profile [facility] Start: 11-27-2009 Screening for malign ant neoplasm of breast Breast cancer screen [place], [place] Start: 11-27-2009 Screening for malign ant neoplasm of colon Colon cancer screen colonoscopy [place] Start: 11-27-2009 Shingles Vaccine (1 of 2) Shingles Vaccine (1 of 2) [place] Start: 11-27-2009 SHINGRIX VACCINE (1 of 2) SHINGRIX VACCINE (1 of 2) [facility] Start: 11-27-2004 COLOGUARD (FIT-DNA) COLOGUARD (FIT-D NA) [facility] Start: 11-27-[address] [facility] Start: 11-27-2004 COLORECTAL CANCER SCREENING COLORECTAL CANCER SCREENING [facility] Start: 11-27-[address] COLONOGRAPHY [facility] Start: 11-27-2004 DIABETES SCREEN DIABETES SCREEN [facility] Start: 11-27-2004 FECAL OCCULT BLOOD FECAL OCCULT BLOO D [facility] Start: 11-27-2004 Lipid 1996 panel - S alisa or Plasma Lipid Screening [facility] Start: 11-27-2004 Lipid panel Lipid Screening [facility] Start: 11-27-2004 LIPID SCREEN LIPID SCREEN [facility] Start: 11-27-2004 Screening for malign ant neoplasm of colon [facility] Start: 11-27-2004 SIGMOIDOSCOPY SIGMOIDOSCOPY [facility] Start: [address] [facility] Start: 1999 Screening for malign ant neoplasm of breast Mammogram Screening [facility] Start: 11-27-1989 HPV TESTING HPV TESTING [facility] Start: 11-27-1980 PAP TESTING PAP TESTING [facility] Start: 11-27-1980 Screening for malign ant neoplasm of cervix [facility] Start: 11-27-1978 DTaP/Tdap/Td vaccine (1 - Tdap) DTaP/Tdap/Td vaccine (1 - Tdap) [place] Start: 11-27-1977 ANNUAL PCP TEAM DEHYDROGENATION OPERATOR LUIS A DISEASE VISIT ANNUAL PCP TEAM CHRONIC DISEASE VISIT [facility] Start: 11-27-1977 Anxiety Screening Anxiety Screening [facility] Start: 11-27-1977 BP CONTROLLED (<130/80) BP CONTROLLE D (<130/80) [facility] Start: 11-27-1977 Depression Screening Depression Scre ening [facility] Start: 11-27-1977 HEPATITIS C SCREENING HEPATITIS C [facility] Start: 11-27-1977 Hepatitis C screening Hepatitis C [facility] Start: 11-27-1977 HIV SCREENING HIV SCREENING [facility] Start: 11-27-1977 HIV screening HIV Screening [facility] Start: 1975 COVID-19 Vaccine (1) COVID-19 Vaccin e (1) [facility] Work Phone: Start: 11-27-1974 HIV screening HIV screen [place], [place] Start: 11-27-1969 Lipid panel Lipid screen [place], [place] Start: 11-27-1965 PNEUMOCOCCAL (1 - PCV) PNEUMOCOCCAL (1 - PCV) [facility] Start: 1959 Creatinine [place] Start: 1959 Hepatitis C screening Hepatitis C [place], [place] Start: 1959 Potassium monitoring Potassium monit [place] End: 09-02-2023 AMELIA SCREENING W MIGUEL AMELIA SCREENING W MIGUEL Radiology Routine History of breast cancer in female Encounter for screening mammogram for malignant neoplasm of breast 1 Occurrences starting 08/03/2022 until 09/02/2023 [facility] Work Phone: Comment on above: 1 Occurrences starti ng 08/03/2022 until 09/02/2023 End: 08-11-2022 Mri brain brain stem w/o w/contrast material MRI BRAIN WO/W IVCON Radiology Routine Malignant neoplasm of right breast in female, estrogen receptor positive, unspecified site of breast (HCC) Osteopenia, unspecified location Anxiety and depression Headaches 1 Occurrences starting 07/12/2021 until 08/11/2022 [facility] Work Phone: Comment on above: 1 Occurrences starti ng 07/12/2021 until 08/11/2022 [facility] Immunizations Immunization Date Immunization Notes Care Provider Alice [email or web address] 01-25-2023 influenza virus vaccine, unspecified formulation Marlin Yee RN [facility] 02-23-2022 zoster vaccine recombinant Vaishnavi Jinny PA-C Work Phone: [facility] 01-26-2022 influenza virus vaccine, split virus (incl. purified surface antigen) Tato Bagley Other [facility] Other 01-26-2022 influenza virus vaccine, unspecified formulation DO Tato Bagley Work Phone: [facility] 01-26-2022 Influenza, injectabl e, Madin Avril Canine Kidney, preservative free, quadrivalent Vaishnavi Jinny PA-C Work Phone: [facility] 11-17-2021 zoster vaccine recombinant Vaishnavi Jinny PA-C Work Phone: [facility] 09-08-2021 COVID-19 original vaccine, age 12+ yr, monovalent (PFIZER-BIONTECH - SWENSON TOP) Vaishnavi Jinny PA-C Work Phone: [facility] 03-03-2021 COVID-19 original vaccine, age 12+ yr, monovalent (PFIZER-BIONTECH - PURPLE TOP) Vaishnavi Jinny PA-C Work Phone: [facility] 12-27-2020 influenza virus vaccine, unspecified formulation Raffy Singleton MD Work Phone: [facility] 08-17-2020 COVID-19 vaccine (DONNA) Vaishnavi Jinny PA-C Work Phone: [facility] 01-29-2019 influenza, seasonal, injectable; Translations: [[id number]] Vaishnavi Jinny PA-C Work Phone: [facility] 10-25-2017 tetanus and diphther ia toxoids, adsorbed, preservative free, for adult use (2 Lf of tetanus toxoid and 2 Lf of diphtheria toxoid) Vaishnavi Jinny PA-C Work Phone: [facility] 10-25-2017 tetanus and diphther ia toxoids, adsorbed, preservative free, for adult use (5 Lf of tetanus toxoid and 2 Lf of diphtheria toxoid) DO Tato Bagley Work Phone: [facility] 10-25-2017 tetanus toxoid, reduced diphtheria toxoid, and acellular pertussis vaccine, adsorbed Tato Bagley Other [facility] Other Payers Date Payer Category Payer Private Health Insurance [id number] 2020 Private Health Insurance PATRIA CANDELARIO OA [id number] 2020-Present [phone] [address] [place] [address] Open Access [id number] 2020 Private Health Insurance PATRIA CANDELARIO OA [id number] 2020-Present [phone] [address] [place] [address] Open Access [id number] 1959 Unknown [id number] [id number]. 2.174 1959 Unknown [id number] [id number]. 2.174 1959 Unknown [id number] [id number]. 2.174 1959 Unknown [id number] [id number]. 2.174 1959 Unknown [id number] [id number]. 2.174 1959 Unknown [id number] 2.16.840.1.374846.3.579. 2.174 1959 Unknown [id number] [id number]. 2.174 1959 Unknown [id number] 2.16.840.1.935695.3.579. 2.174 1959 Unknown [id number] 2.16.840.1.765832.3.579. 2.174 1959 Unknown [id number] 2.16.840.1.978808.3.579. 2.593 1959 Unknown [id number] [id number]. 2.727 1959 Private Health Insurance [id number] 1959 Self-pay Private Health Insurance [facility] [id number] Unknown [id number] [id number] Unknown [id number]. 2.531 Social History Date Type Detail Facility Start: 05-22-2020 End: 05-22-2024 Tobacco smoking status MSIS Never smoker [facility] Start: 05-22-2020 Alcohol intake Ex-drinker (finding) [place] Sex Assigned At Not on file [place] Start: 07-02-2021 End: 02-02-2022 Exposure to SARS-CoV-2 (event) Not sure [place] Start: 12-21-2013 End: 01-16-2019 Tobacco smoking status MSIS Ex-smoker [facility] Start: 04-15-1971 End: 04-15-1979 History of tobacco use Current smoker [facility] Start: 04-15-1971 End: 04-15-1979 History of tobacco use Cigarette Smoker [facility] Start: 12-21-2013 End: 02-01-2023 Cigarettes smoked current (pack per day) - Reported 0.[address] [facility] Start: 12-21-2013 End: 02-02-2022 Tobacco use and exposure Smokeless tobacco non-user [facility] Start: 07-12-2021 End: 02-01-2023 Alcohol intake Current non-drinker of alcohol (finding) [facility] Start: 1960 Sex Assigned At Female [facility] Start: 08-03-2022 End: 02-01-2023 Sex Assigned At Female [facility] History of tobacco use Passive smoker [facility] Adult Depression Screening Assessment [address] [facility] Start: 07-06-2020 Gender identity Identifies as female gender (finding) [facility] Start: 07-06-2020 Sexual orientation Heterosexual (fin ding) [facility] Start: 05-22-2024 End: 07-29-2024 Sex Female (finding) [facility] Clinical Notes 07-12-2021 to 05-22-2024 Note Date & Type Note Facility 05-22-2024 Evaluation note Diagnosis Onset Date Resolution Breast cancer acute May 10:34am Elevated cholesterol acute Febr 2024 10:34am Generalized anxiety disorder acute May 22 10:34am Impaired fasting glucose acute May 22, 2024 10:34am Leukopenia acute May 22, 2024 10:34am Primary hypertension acute 2024 10:34am Venous insufficiency (chronic) (peripheral) acute May 22, 2024 10:34am Arthritis of carpometacarpal (CMC) joint of right thumb acute July 28, 2024 1:01pm [facility] Work Phone: 1(837) 998-147307-26-2024 Telephone encounter Note* Telephone Encounter - Raffy Singleton MD - 11/08/2023 10:49 AM EDT Thanks [facility]07-26-2024 Miscellaneous Notes* Telephone Encounter - Raffy Singleton MD - 11/08/2023 10:49 AM EDT Thanks * Telephone Encounter - Marlin Yee RN - 11/08/2023 10:44 AM EDT Pt appointment with Isaac canceled. Pt offered to continue with Isaac in [place], or [place] to [place] provider. She reports I am passed my 5 years, and I don't think I really need to come there any longer. Pt aware she can have Dr Bagley PCP resume her yearly mammogram orders and can return for any oncologic needs, if necessary, in the future. Pt denies any questions, need or concerns at this time. Isaac/PSS: LIZZY Yee RN [facility] Telephone encounter Note * Telephone Encounter - Marlin Yee RN - 11/08/2023 10:44 AM EDT Pt appointment with Isaac canceled. Pt offered to continue with Isaac in [place], or [place] provider. She reports I am passed my 5 years, and I don't think I really need to come there any longer. Pt aware she can have Dr Bagley PCP resume her yearly mammogram orders and can return for any oncologic needs, if necessary, in the future. Pt denies any questions, need or concerns at this time. Isaac/PSS: LIZZY Yee RN [facility]02-02-2024 Evaluation note* Encounter Date Diagnosis Assessment Notes Treatment Notes Treatment Clinical Notes May, Type 2 diabetes mellitus with [...] for blisters and ulcerations. May, Malignant neoplasm o f upper-outer quadrant of right female breast (ICD-10 - C50.411) Instructed patient on monthly SBE and yearly mammograms. Stopped hormone therapy due to intolerance May, Generalized anxiety disorder (ICD-10 - F41.1) Symptoms tolerable. Occasional panic attack, which may last 1-2 hours and resolves w/o medication [facility] Other 10-24-2023 Miscellaneous Notes* Telephone Encounter - [...] advise Marlin Yee RN [facility] NoteHNO ID: [id number] Author: Raffy Singleton MD Service: ? Author Type: Physician Type: Progress Notes Filed: 02/01/2023 10:04 AM Note Text: PATIENT NAME: Alyssa Valdez CLINIC NO.: [id number] ATTENDING PHYSICIAN: Raffy Singleton MD DATE OF [...] is 15 mm in size. ER and ID strongly positive, greater than 95%. Fish negative [...] 02/02/2022 7.4 Albumin (g/dL (more content not included)...[facility]10-20-2023 History of Present illness Narrative* Raffy Singleton MD - 02/01/2023 9:52 AM EDT Images from the original note were not included. PATIENT NAME: Alyssa [facility] NO.: [id number] ATTENDING PHYSICIAN: Raffy Singleton MD DATE OF [...] is 15 mm in size. ER and ID strongly positive, greater than 95%. Fish negative [...] Range Status 02/02/2022 8.2 % Final Abs Summers Date Value Ref Range Status 02/02/2022 0.31 [...] biopsy December 2018. The tumor is strongly ER/ID positive, HER-2/avery negative with an Oncotype DX [...] do not hesitate to contact me at [phone]. Raffy Singleton MD Hematology/Medical Oncology [facility] CC: MD Ze Kessler MD Philip Engeler, MD I spent a total of 30 minutes on the date of the service which included preparing to see the patient, [id number] patient care, completing clinical documentation, obtaining and/or reviewing separately obtained history, performing a medically appropriate examination, counseling and educating the pat ient/family/caregiver, ordering medications, tests, or procedures, and communicating with other HCPs (not separately reported). [facility]2023 NoteHNO ID: [id number] Author: Vaishnavi Stearns PA-C Service: ? Author Type: Physician State Manager Type: Progress Notes Filed: 08/03/2022 10:16 AM Note Text: PATIENT NAME: Alyssa Valdez [facility] NO.: [id number] ATTENDING PHYSICIAN: Raffy Singleton MD DATE OF [...] is 15 mm in size. ER and ID strongly positive, greater than 95%. Fish negative [...] biopsy December 2018. The tumor is strongly ER/ID positive, HER-2/avery negative with an Oncotype DX [...] MD Philip Engeler, M (more content not included)...[facility] 08-03-2022 History of Present illness Narrative* Vaishnavi Stearns PA-C - 08/03/2022 10:00 AM EDT Images from the original note were not included. PATIENT NAME: Alyssa Valdez [facility] NO.: [id number] ATTENDING PHYSICIAN: Raffy Singleton MD DATE OF [...] is 15 mm in size. ER and ID strongly positive, greater than 95%. Fish negative [...] 5' 3.78 (1.62m) Wt 161 lb (73.0kg) [id number]% BMI 27.83 kg/(m^2). ECOG PERFORMANCE STATUS: 0- [...] biopsy December 2018. The tumor is strongly ER/ID positive, HER-2/avery negative with an Oncotype DX [...] MD Philip Engeler, MD [facility] Miscellaneous Notes* Telephone Encounter - Eliane [...] up with Dr. Bagley documented in [facility] History of Present illness Narrative* Raffy Singleton MD - 02/02/2022 10:18 AM EDT Images from the original note were not included. PATIENT NAME: Alyssa Valdez CLINIC NO.: [id number] ATTENDING PHYSICIAN: Raffy Singleton MD DATE OF [...] is 15 mm in size. ER and ID strongly positive, greater than 95%. Fish negative [...] 0.74 (L) 1.00 - 4.00 k/uL Final Summers% Date Value Ref Range Status 02/02/2022 8.2 % Final Abs Summers Date Value Ref Range Status 02/02/2022 0.31 [...] biopsy December 2018. The tumor is strongly ER/ID positive, HER-2/avery negative with an Oncotype DX [...] do not hesitate to contact me at [phone]. Raffy Singleton MD Hematology/Medical Oncology [facility] CC: MD Ze Kessler MD Philip Engeler, MD I spent a total of 30 minutes on the date of the service which included preparing to see the patient, [id number] patient care, completing clinical documentation, obtaining and/or reviewing separately obtained history, performing a medically appropriate examination, counseling and educating the pat ient/family/caregiver, ordering medications, tests, or procedures, and communicating with other HCPs (not separately reported). documented in [facility] History of Present illness Narrative* Raffy Singleton MD - 08/04/2021 3:37 PM EDT PATIENT NAME: Alyssa Valdez CLINIC NO.: [id number] ATTENDING PHYSICIAN: Raffy Singleton MD DATE OF [...] is 15 mm in size. ER and ID strongly positive, greater than 95%. Fish negative [...] 0.89 (L) 1.00 - 4.00 k/uL Final Summers% Date Value Ref Range Status 08/04/2021 9.7 % Final Abs Summers Date Value Ref Range Status 08/04/2021 0.53 [...] biopsy December 2018. The tumor is strongly ER/ID positive, HER-2/avery negative with an Oncotype DX [...] do not hesitate to contact me at [phone]. Raffy Singleton MD Hematology/Medical Oncology [facility] CC: MD Ze Kessler MD Philip Engeler, MD documented in this encounterMount [facility] History of Present illness Narrative* Glenna Yeager, GEODESY TEACHER - 07/12/2021 4:43 PM EDT Assessment Completed Social Work Problem Referral Note INFORMATION/REFERRAL : Alyssa Valdez 60 year old female was [facility] the following reason(s): Additional support [...] as appropriate. DAVID Sellers documented in this encounterMount [facility]. [facility]03[facility]-2022 History of Present illness Narrative* Vaishnavi Stearns PA-C - 07/12/2021 11:00 AM EDT PATIENT NAME: Alyssa Valdez [facility] NO.: [id number] ATTENDING PHYSICIAN: Raffy Singleton MD DATE OF [...] is 15 mm in size. ER and ID strongly positive, greater than 95%. Fish negative [...] biopsy December 2018. The tumor is strongly ER/ID positive, HER-2/avery negative with an Oncotype DX [...] the future). She will meet with our psych social worker today as well. She is having more frequent headaches and some visual changes, and I recommended and MRI of the brain as well. We will seeher back in 3 weeks for follow up. Dexa scan reviewed and declined bone resorptive agents in the past and continue calcium and Vit D Next mammogram 12/2021 Vaishnavi Stearns PA-C documented in [facility] encounterReg[facility] Centeral[facility] + Plan note No data available for this section [facility] Diagnosis Malignant neoplasm of right breast in female, estrogen receptor positive, unspecified site of breast (HCC)- Primary Osteopenia, unspecified location Anxiety and depression Dysthymic disorder Headaches documented [facility] this encounter [facility] Diagnosis Malignant neoplasm of right breast in female, estrogen receptor positive, unspecified site of breast (HCC)- Primary [facility] Diagnosis Malignant neoplasm of right breast in female, estrogen receptor positive, unspecified site of breast (HCC)- Primary [facility] encounter [facility]* Diagnosis History of breast cancer in female- Primary Personal history of malignant neoplasm of breast Osteopenia, unspecified location Encounter for screening mammogram for malignant neoplasm of breast Other screening mammogram [facility] this encounter [facility] Diagnosis Encounter for screening for malignant neoplasm of breast, unspecified screening modality- Primary History of breast cancer in female Personal history of malignant neoplasm of breast documented [facility] this encounter [facility]* Diagnosis Onset Date Resolution Status Arthritis of carpometacarpal (CMC) joint of right thum b acute [facility] Work Phone: Evaluation note* Diagnosis Onset Date Resolution Status Arthritis of carpometacarpal (CMC) joint of right thumb acute Breast cancer acute Elevated cholesterol acute Generalized anxiety disorder acute Impaired fasting glucose acu te Leukopenia acute Primary hypertension acute Venous insufficiency (chronic) (peripheral) acute Wellness examination noneact jocelin [facility] Work Phone: Evaluation noteNo InformationNortLifecare [facility] Outline App Other Evaluation note* Diagnosis Onset Date Resolution Status Admit Date Breast cancer acute May 10:34am Elevated cholesterol acute Febr 2024 10:34am Generalized anxiety disorder acute May 22, 2024 10:34am Impaired fasting glucose acute May 22, 2024 10:34am Leukopenia acute May 22, 2024 10:34am Primary hypertension acute Febr 2024 10:34am Venous insufficiency (chroni c) (peripheral) acute May 22 10:34am [facility] Work Phone: History general Narrative - Reported* Type Description Date Medical History hypertension Medical History Cholesterol Medical History fx lt ankle Medical History Right breast cancer: lumpectomy, radiation Surgical History JESSE/BSO 2000 Surgical History ORIF LEFT ANKLE Surgical History GANGLION CYST/RIGHT WRIST Surgical History X2 Surgical History Lumpectomy, LN dissection Hospitalization History see surgical history [facility] Other Hospital Discharge instructions No data available for this section [facility] No data available for this section [facility] (narrative)* Diagnostic Procedure Only (Routine) - Pending Review Specialty Diagnoses / Procedures Referred By Contosmany t Referred To Contact [facility] Diagnoses Malignant neoplasm of right breast in female, estrogen receptor positive, unspecified site of breast (HCC) Procedures [facility] DIAGNOSTIC BILAT DIAGNOSTIC MAMMOGRAPHY COMPUTER-AIDED DETCJ Raffy Hollis MD [address] [place] [address] [facility] [address] [place] [address] Referral ID Status Reason Start Date Expiration Date Visits Requested Visits Authorized [id number] Pending Review Auto-Generat ed Referral 01/04/2022 09/03/2022 1 1 [facility] for referral (narrative)* Diagnostic Procedure Only (Routine) - Pending Review Specialty Diagnoses / Procedures Referred By Contac t Referred To Contact [facility] Diagnoses Malignant neoplasm of right breast in female, estrogen receptor positive, unspecified site of breast (HCC) Procedures [facility] DIAGNOSTIC RT DIAGNOSTIC MAMMOGRAPHY COMPUTER-AIDED DETCJ [facility] Raffy Singleton MD [address] [place] [address] [facility] [address] [place] [address] Referral ID Status Reason Start Date Expiration Date Visits Requested Visits Authorized [id number] Pending Review Auto-Generat ed Referral 08/03/2022 03/04/2023 1 1 [facility] for referral (narrative)* Diagnostic Procedure Only (Routine) - Pending Review Specialty Diagnoses / Procedures Referred By Contac t Referred To Contact [facility] Diagnoses History of breast cancer in female Encounter for screening mammogram for malignant neoplasm of breast Procedures AMELIA SCREENING W MIGUEL SCREENING DIGITAL BREAST TOMOSYNTHESIS BI SCREENING MAMMOGRAPHY BI 2-VIEW BREAST INC Vaishnavi Cho PA-C [address] [place] [address] [facility] [address] [place] [address] Referral ID Status Reason Start Date Expiration Date Visits Requested Visits Authorized [id number] Pending Review Auto-Generat ed Referral 08/03/2022 09/02/2023 1 1 [facility] Diagnostic Procedure Only (Routine) - Pending Review Specialty Diagnoses / Procedures Referred By Madelin kyle Referred To Contact [facility] Diagnoses Encounter for screening for malignant neoplasm of breast, unspecified screening modality Procedures AMELIA SCREENING W MIGUEL SCREENING DIGITAL BREAST TOMOSYNTHESIS BI SCREENING MAMMOGRAPHY BI 2-VIEW BREAST INC CAD Raffy Singleton MD [facility] [place] [address] [facility] [address] [place] [address] Referral ID Status Reason Start Date Expiration Date Visits Requested Visits Authorized [id number] Pending Review Auto-Generat ed Referral 4 03/02/[address] [facility] * Instructions* Ina Lr MD - 05/22/2020 Tylenol 650, 3 times daily as needed for pain Ice * Attachments The following attachments cannot be sent through Care Everywhere. * Kneecap Fracture (Korean) documented in this encounter Assessments Diagnosis Closed nondisplaced comminuted fracture of left patella, initial encounter- Primary Diagnosis Other closed fracture of left patella, initial encounter Diagnosis Closed displaced comminuted fracture of left patella, initial encounter Summary Purpose Family History No Family History Records Found Relationship Condition Age at Onset Recorded Date/T edvin family member Unknown Not Specified Unknown sister Unknown Relationship Condition Age at Onset Recorded Date/T edvin family member Unknown mother Unknown sister Unknown Advance Directives No Advanced Directives Records Found Advance Directive Response Recorded Date/ Time Advance Directives No December 3:47pm Advance Directive Response Recorded Date/ Time Advance Directives No December 2:47pm Advance Directive Response Recorded Date/ Time Advance Directives No May 22, 2024 12:25pm Reason for Referral Specialty Diagnoses / Procedures Referred By Madelin kyle Referred To Contact [facility] Diagnoses Malignant neoplasm of right breast in female, estrogen receptor positive, unspecified site of breast (HCC) Osteopenia, unspecified location Anxiety and depression Headaches Procedures MRI BRAIN WO/W IVCON MRI BRAIN BRAIN STEM W/O W/CONTRAST MATERIAL Vaishnavi Stearns PA-C [address] [employer] [facility] [place] [address] [facility] Referral ID Status Reason Start Date Expiration Date Visits Requested Visits Authorized [id number] Authorized Auto-Generat ed Referral 07/12/2021 10/10/2021 1 [...] hypertension Venous insufficiency (chronic) (peripheral) Wellness examination Chief Complaint Admit Date 6 month f/u May 22, 2024 1 0:34am Reason for Visit Admit Date Breast cancer May 22, 2024 1 0:34am Elevated cholesterol May 22, 2024 10:34am Generalized anxiety disorder May 7t h2024 10:34am Impaired fasting glucose May 22 025 10:34am Leukopenia May 22, 2024 1 0:34am Primary hypertension May 22, 2024 10:34am Venous insufficiency (chronic) (peripher al) May 22, 2024 10:34am Chief Complaint Admit Date 6 month f/u May 22, 2024 1 0:34am 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 July 28, 2024 11:14am OP SP RT [facility] PAIN WANTS TO DISCUSS July 28, 2024 1:01pm Reason for Visit Admit Date Breast cancer May 22, 2024 1 0:34am Elevated cholesterol May 22, 2024 10:34am Generalized anxiety disorder May 7t h2024 10:34am Impaired fasting glucose May 22 2 025 10:34am Leukopenia May 22, 2024 1 0:34am Primary hypertension May 22, 2024 10:34am Venous insufficiency (chronic) (peripher al) May 22, 2024 10:34am Arthritis of carpometacarpal (CMC) joint of right thumb July 28, 2024 1:01pm Additional Source Comments Reason for Visit (unrecogniz [...] and content) DATE CREATED AUTHOR 08/08/2020 [facility] DATE CREATED AUTHOR AUTHOR'S ORGANIZ ATION 05/12/2022 [facility] DATE CREATED AUTHOR AUTHOR'S ORGANIZ ATION 02/06/2023 [facility] DATE CREATED AUTHOR AUTHOR'S ORGANIZ ATION 01/24/2024 [facility] DATE CREATED AUTHOR AUTHOR'S ORGANIZ ATION 08/01/2024 [facility] Source Comments (unrecognize d section and content) In the event this informatio n is protected by the Federal Confidentiality of Alcohol and Drug Abuse Patient Records regulations: The Federal rules restrict any use of the information to criminally investigate or prosecute any alcohol or drug abuse patient.[facility] Hospital[facility] the event this information is protected by the Federal Confidentiality of Alcohol and Drug Abuse Patient Records regulations: The Federal rules restrict any use of the information to criminally investigate or prosecute any alcohol or drug abuse patient.[facility] HospitalIn the event this information is protected by the Federal Confidentiality of Alcohol and Drug Abuse Patient Records regulations: The Federal rules restrict any use of the information to criminally investigate or prosecute any alcohol or drug abuse patient.[facility] HospitalIn the event this information is protected by the Federal Confidentiality of Alcohol and Drug Abuse Patient Records regulations: The Federal rules restrict any use of the information to criminally investigate or prosecute any alcohol or drug abuse patient.[facility] HospitalIn the event this information is protected by the Federal Confidentiality of Alcohol and Drug Abuse Patient Records regulations: The Federal rules restrict any use of the information to criminally investigate or prosecute any alcohol or drug abuse patient.[facility] HospitalIn the event this information is protected by the Federal Confidentiality of Alcohol and Drug Abuse Patient Records regulations: The Federal rules restrict any use of the information to criminally investigate or prosecute any alcohol or drug abuse patient.[facility] HospitalIn the event this information is protected by the Federal Confidentiality of Alcohol and Drug Abuse Patient Records regulations: The Federal rules restrict any use of the information to criminally investigate or prosecute any alcohol or drug abuse patient.[facility] HospitalIn the event this information is protected by the Federal Confidentiality of Alcohol and Drug Abuse Patient Records regulations: The Federal rules restrict any use of the information to criminally investigate or prosecute any alcohol or drug abuse patient.[facility] HospitalIn the event this information is protected by the Federal Confidentiality of Alcohol and Drug Abuse Patient Records regulations: The Federal rules restrict any use of the information to criminally investigate or prosecute any alcohol or drug abuse patient.[facility] HospitalIn the event this information is protected by the Federal Confidentiality of Alcohol and Drug Abuse Patient Records regulations: The Federal rules restrict any use of the information to criminally investigate or prosecute any alcohol or drug abuse patient.[facility] the event this information is protected by the Federal Confidentiality of Alcohol and Drug Abuse Patient Records regulations: The Federal rules restrict any use of the information to criminally investigate or prosecute any alcohol or drug abuse patient.[facility]In the event this information is protected by the Federal Confidentiality of Alcohol and Drug Abuse Patient Records regulations: The Federal rules restrict any use of the information to criminally investigate or prosecute any alcohol or drug abuse patient.[facility] HospitalIn the event this information is protected by the Federal Confidentiality of Alcohol and Drug Abuse Patient Records regulations: The Federal rules restrict any use of the information to criminally investigate or prosecute any alcohol or drug abuse patient.[facility] Care Teams (unrecognized sec tion and content) Team Status: Active Member Role Status Dates Tato Bagley DO Primary Care Provider Active Team Status: Inactive Member Role Status Dates Tato Bagley DO Primary Care Provide r, Attending Provider Active Start: May 22, 2024 End: May 22, 2024 Team Status: Active Member Role Status Dates Tato Bagley DO Primary Care Provider Active Start: July 28, 2024 Amberly Humphrey MD Attending Provider Active Start: July 28, 2024 Team Status: Inactive Member Role Status Dates Tato Bagley DO Primary Care Provider Active Start: July 28, 2024 End: July 28, 2024 Amberly Humphrey MD Attending Provider Active Start: July 28, 2024 End: July 28, 2024 Team Status: Active Member Role Status Dates Tato Bagley DO Primary Care Provide r, Attending Provider Active Start: March 27, 2024 Analytical Strategist Relationship Specialty Start Date End Date Tato Bagley DO PCP - General Internal Medicine 12/15/13 Analytical Strategist Relationship Specialty Start Date End Date Tato Bagley DO PCP - General Internal Medicine 12/15/13 Analytical Strategist Relationship Specialty Start Date End Date Tato Bagley DO PCP - General Internal Medicine 12/15/13 Analytical Strategist Relationship Specialty Start Date End Date Tato Bagley DO PCP - General Internal Medicine 12/15/13 Analytical Strategist Relationship Specialty Start Date End Date Tato Bagley DO PCP - General Internal Medicine 12/15/13 Analytical Strategist Relationship Specialty Start Date End Date Tato Bagley DO PCP - General Internal Medicine 12/15/13 Analytical Strategist Relationship Specialty Start Date End Date Tato Bagley DO PCP - General Internal Medicine 12/15/13 Analytical Strategist Relationship Specialty Start Date End Date Tato Bagley DO PCP - General Internal Medicine 12/15/13 Analytical Strategist Relationship Specialty Start Date End Date Tato [...] Attending Provider Active Start: July 16, 2023 Analytical Strategist Relationship Specialty Start Date End Date Tato Bagley PCP - General Internal Medicine 12/15/13 Team [...] 2023 Team Status: Inactive Member Role Status Stacie Godwin Taya DO Primary Care Provide r, Attending Provider [...] BE BASED ON THE PRIMARY CLINICAL RECORDS. [employer] provides no warranty or guarantee of the accuracy or completeness of information in this document.
[2024-11-28 09:35] LABS: Hematocrit 40.5 % (36.0-48.0); Hemoglobin 14.2 g/dL (12.0-16.0); Immature Granulocytes Abs Auto 0.01 10^3/uL (0.00-0.03); Immature Granulocytes Pct Auto 0.3 % (0.0-0.5); Lymphocytes Absolute Auto 1.0 10^3/uL (1.2-3.8); Mean Corpuscular HGB Conc 35.1 g/dL (29.9-35.2); Mean Corpuscular Hemoglobin 30.1 pg (26.7-34.0); Mean Corpuscular Volume 85.8 fL (81.0-99.0); Platelet Count 172 10^3/uL (150-450); Red Blood Count 4.72 10^6/uL (4.20-5.40); White Blood Count 3.8 10^3/uL (4.0-11.0)
[2024-11-28 10:20] LABS: Alanine Aminotransferase 40 U/L (14-59); Albumin Globulin Ratio 1.1; Albumin Level 4.1 g/dL (3.4-5.0); Alkaline Phosphatase 95 U/L (46-116); Anion Gap 11.9; Aspartate Amino Transferase 19 U/L (15-37); Blood Urea Nitrogen 12.0 mg/dL (7.0-18.0); Calcium 9.0 mg/dL (8.5-10.1); Carbon Dioxide 30.0 mmol/L (21.0-32.0); Chloride 104 mmol/L (98-107); Cholesterol 185 mg/dL (<=200); Estimated GFR (African America >60 (>=60 mL/min/1.73m^2); Estimated GFR (Non-African Ame >60 (>=60 mL/min/1.73m^2); Globulin 3.7 g/dL; Glucose 158 mg/dL (74-106); HDL Cholesterol 65 mg/dL (40-60); Potassium 3.9 mmol/L (3.5-5.1); Sodium 142 mmol/L (136-145); Total Protein 7.8 g/dL (6.4-8.2); Triglycerides 75 mg/dL (<=150); VLDL CHOLESTEROL 15.0 mg/dL
== END 2024-11-28 08:39 | disposition home or self-care (01) ==
PROVIDERS: PCP Internal Medicine; Visit Provider Internal Medicine
DX: Z00.00 Encounter for general adult medical examination without abnormal findings (principal); I10 Essential (primary) hypertension; E78.00 Pure hypercholesterolemia, unspecified; R73.01 Impaired fasting glucose
CPT/HCPCS: 36415; 80053; 80061; 83036; 85025